=== PATIENT | male | born 1990 ===

== ENCOUNTER → 2020-07-30 12:50 | Outpatient (BNVA) | payer OTHER, SELFPAY | PROVIDERS: PCP Physician Assistant; Referring Provider Physician Assistant; Visit Provider Physician Assistant | DX: K21.9 Gastro-esophageal reflux disease without esophagitis (principal); Z79.899 Other long term (current) drug therapy | CPT/HCPCS: 99203 ==

== ENCOUNTER 2020-09-11 15:19 | Emergency (ER) | payer OTHER, SELFPAY ==
--- NOTE | 2020-09-11 | XR_ITS ---
EXAMINATION: XR ANKLE, LEFT CLINICAL INFORMATION: Pain after trauma. COMPARISON: None TECHNIQUE: AP, lateral, and mortise views of the left ankle. FINDINGS: 3 views of left ankle reveal bimalleolar soft tissue swelling. No visible acute fracture, dislocation or subluxation seen. The ankle mortise and subtalar joints are normal. XR/XR ankle LT min 3V IMPRESSION: Unremarkable left ankle exam.
--- NOTE | 2020-09-11 16:56 | ED_ITS ---
HPI - Extremity Injury (Lower) General Chief Complaint: Extremity Injury, Lower <BIENVENIDO Bhagat Last Filed: 09/11/20 17:39> Stated Complaint: ankle pain' <BIENVENIDO Bhagat Last Filed: 09/11/20 17:39> Time Seen by Provider: 09/11/20 16:45 <BIENVENIDO Bhagat Last Filed: 09/11/20 17:39> Source: patient <BIENVENIDO Bhagat Last Filed: 09/11/20 17:39> Mode of arrival: ambulatory <BIENVENIDO Bhagat Last Filed: 09/11/20 17:39> Limitations: no limitations <BIENVENIDO Bhagat Last Filed: 09/11/20 17:39> History of Present Illness HPI Narrative: patient presents to ED for left ankle pain. Patient states yesterday he was jumping off a trampoline heard a pop in his ankle and since then has been swollen. Patient states able to bear weight and walk on ankle. Patient denies falling to the floor, hitting head, or loss of consciousness. <BIENVENIDO Bhagat Last Filed: 09/11/20 17:39> Related Data Home Medications: Home Medications Medication Instructions Recorded Confirmed hydroxyzine HCl 50 mg tablet [id number] mg PO BEDTIME PRN 09/23/20 Previous Rx's Medication Instructions Recorded cyclobenzaprine 10 mg tablet 10 mg PO BEDTIME 30 Days #30 tab 07/17/20 cyclobenzaprine 10 mg PO TID PRN #15 tab 09/11/20 naproxen 500 mg PO BID PRN #20 tab 09/11/20 <BIENVENIDO Bhagat Last Filed: 09/11/20 17:39> Allergies/Adverse Reactions: Allergies Allergy/AdvReac Type Severity Reaction Status Date / Time Penicillins [PENICILLINS] Allergy Severe DIFFICULTY Verified 07/30/20 13:52 BREATHING penicillin V Allergy Unknown throat Verified 07/17/20 14:59 swlelling, anaphylaxis From Augmentin Allergy Unknown UNKNOWN Uncoded 06/27/20 16:47 <BIENVENIDO Bhaagt Last Filed: 09/11/20 17:39> Review of Systems Review of Systems: Yes all other systems are reviewed and are negative <BIENVENIDO Bhagat Last Filed: 09/11/20 17:39> Constitutional: Constitutional: Reports as per HPI and Reports no additional constitutional complaints <BIENVENIDO Bhagat Last Filed: 09/11/20 17:39> Eyes: Eyes: Reports as per HPI and Reports no additional eye complaints <BIENVENIDO Bhagat - Last Filed: 09/11/20 17:39> ENT: Reports system reviewed and no additional complaints, except as documented and Reports as per HPI <BIENVENIDO Bhagat - Last Filed: 09/11/20 17:39> Cardiovascular: Cardiovascular: Reports as per HPI and Reports no additional cardiovascular complaints <BIENVENIDO Bhagat Last Filed: 09/11/20 17:39> Respiratory: Respiratory: Reports as per HPI and Reports no additional respiratory complaints <BIENVENIDO Bhagat Last Filed: 09/11/20 17:39> Gastrointestinal: Gastrointestinal: Reports as per HPI and Reports no additional gastrointestinal complaints <BIENVENIDO Bhagat Last Filed: 09/11/20 17:39> Genitourinary: Genitourinary: Reports no additional male genitourinary complaints and Reports as per HPI <BIENVENIDO Bhagat Last Filed: 09/11/20 17:39> Musculoskeletal: Musculoskeletal: Reports no additional musculoskeletal complaints, Reports as per HPI and Reports arthralgias ( left ankle) <BIENVENIDO Bhagat Last Filed: 09/11/20 17:39> Neurologic: Reports system reviewed and no additional complaints, except as documented and Reports as per HPI <BIENVENIDO Bhagat Last Filed: 09/11/20 17:39> Psychiatric: Psychiatric: Reports no additional psychiatric complaints and Reports as per HPI <BIENVENIDO Bhagat Last Filed: 09/11/20 17:39> PMF Past Medical History Medical History: Medical History (Updated 09/23/20 @ 19:15 by Maria Elena Willams NP) Blurred vision Family history of diabetes mellitus <BIENVENIDO Bhagat Last Filed: 09/11/20 17:39> Surgical History: Surgical History Rupture of right patellar tendon <BIENVENIDO Bhagat - Last Filed: 09/11/20 17:39> Family History Family History: Family History Father Hx of diabetes mellitus History of high blood pressure Mother No problems noted. Mother No problems noted. <BIENVENIDO Bhagat - Last Filed: 09/11/20 17:39> Social History Social History: Social History Alcohol intake: never Smoking Status: Never smoker Substance Use Type: Crack/Cocaine <BIENVENIDO Bhagat - Last Filed: 09/11/20 17:39> Physical Exam Vital Signs: Vital Signs: Last Vital Signs Temp 99.1 F 09/11/20 17:01 Pulse 92 09/11/20 17:01 Resp 16 09/11/20 17:01 BP 117/71 09/11/20 17:01 Pulse Ox 97 09/11/20 17:01 Body Mass Index 28.7 <BIENVENIDO Bhagat - Last Filed: 09/11/20 17:39> Vital Signs: Last Vital Signs Temp 99.1 F 09/11/20 17:01 Pulse 92 09/11/20 17:01 Resp 16 09/11/20 17:01 BP 117/71 09/11/20 17:01 Pulse Ox 97 09/11/20 17:01 Body Mass Index 28.7 <Freddie Mendoza MD - Last Filed: 10/04/20 08:17> Const: General: cooperative, healthy appearing, comfortable, no acute distress, well developed, alert, awake and Physically active <BIENVENIDO Bhagat - Last Filed: 09/11/20 17:39> Orientation/consciousness: oriented to person, oriented to place, oriented to time and patient oriented x3 <BIENVENIDO Bhagat - Last Filed: 09/11/20 17:39> HENMT: Head: Yes normal to inspection, Yes No palpable skull fracture present and Yes atraumatic <BIENVENIDO Bhagat - Last Filed: 09/11/20 17:39> Eyes: General: appearance normal, both eyes and all related structures <BIENVENIDO Bhagat - Last Filed: 09/11/20 17:39> Neck: Neck: Yes normal visual inspection, Yes full ROM, Yes no lymphadenopathy, Yes supple and No tender <BIENVENIDO Bhagat Last Filed: 09/11/20 17:39> Chest: Chest palpation & inspection: normal inspection of the chest, normal palpation of entire chest wall and no localized rib tenderness <BIENVENIDO Bhagat Last Filed: 09/11/20 17:39> Resp: Effort & Inspection: normal respiratory effort and able to speak in complete sentences <BIENVENIDO Bhagat Last Filed: 09/11/20 17:39> Auscultation: clear to auscultation bilaterally <BIENVENIDO Bhagat Last Filed: 09/11/20 17:39> Cardio: Jugular venous distension: no JVD <BIENVENIDO Bhagat Filed: 09/11/20 17:39> Heart sounds: S1 normal heart sound present and S2 normal heart sound present <BIENVENIDO Bhagat Filed: 09/11/20 17:39> GI: Inspection: Yes normal to inspection and Yes abdominal wall ecchymosis <BIENVENIDO Bhagat Last Filed: 09/11/20 17:39> Palpation (GI): Soft to palpation, not firm, nontender, no guarding and not rigid <BIENVENIDO Bhagat Last Filed: 09/11/20 17:39> : General: No CVA tenderness and Yes no CVA tenderness <BIENVENIDO Bhagat Filed: 09/11/20 17:39> Back/Spine/Pelvis: Back: no CVA tenderness, No CVA tenderness and No back tenderness <BIENVENIDO Bhagat Last Filed: 09/11/20 17:39> Skin: General skin exam: no rashes or lesions noted <BIENVENIDO Bhagat Last Filed: 09/11/20 17:39> Neuro: General: oriented to person, oriented to place, oriented to time, patient oriented x3 and CN's II-XI intact bilaterally <BIENVENIDO Bhagat Filed: 09/11/20 17:39> Extrem: Other: left lower extremity positive for swelling at the ankle with tenderness on the lateral and medial malleolus area. Negative for any left foot tenderness. Vascular exam of lower extremity and neuro exam intact. <BIENVENIDO Bhagat - Last Filed: 09/11/20 17:39> Psych: Appearance: grossly normal, well kempt and not disheveled <BIENVENIDO Bhagat - Last Filed: 09/11/20 17:39> Course Course Course Narrative: Patient will have x-ray to rule out any fracture of lower extremity. Patient walking on extremity without any problem. <BIENVENIDO Bhagat - Last Filed: 09/11/20 17:39> I have reviewed the chart <Freddie Mendoza MD - Last Filed: 10/04/20 08:17> Reevaluation(s) Reevaluation #1: Extremity x-ray negative for any fractures. Patient has Nathan wrap placed will be discharged with pain meds and muscle relaxers. <BIENVENIDO Bhagat - Last Filed: 09/11/20 17:39> Time: 17:08 <BIENVENIDO Bhagat - Last Filed: 09/11/20 17:39> MDM - Extremity Injury (Lower) MDM Narrative Medical decision making narrative: ankle sprain <BIENVENIDO Bhagat - Last Filed: 09/11/20 17:39> Discharge Plan Discharge Clinical Impression: Ankle sprain <BIENVENIDO Bhagat - Last Filed: 09/11/20 17:39> Patient Disposition: Home, Self-Care <BIENVENIDO Bhagat - Last Filed: 09/11/20 17:39> Instructions: Ankle Sprain (ED) <BIENVENIDO Bhagat - Last Filed: 09/11/20 17:39> Additional Instructions: Return to the ED for any worsening swelling, increased pain, numbness/tingling, calf pain, chest pain, fever, chills, any other concerning symptoms. Please follow-up with your PCP. <BIENVENIDO Bhagat - Last Filed: 09/11/20 17:39> Prescriptions: New naproxen 500 mg tablet 500 mg PO BID PRN (Reason: pain) Qty: 20 RF: 0 cyclobenzaprine 10 mg tablet 10 mg PO TID PRN (Reason: sprain) Qty: 15 RF: 0 No Action flu vacc [id number] 6mos up(PF) 60 mcg (15 mcg x 4)/0.5 mL syringe 0.5 ml IM ONCE Qty: 0.5 RF: 0 cyclobenzaprine 10 mg tablet 10 mg PO BEDTIME 30 Days Qty: 30 RF: 1 <BIENVENIDO Bhagat - Last Filed: 09/11/20 17:39> Referrals: Chele Aquino PA-C [Primary Care Provider] - 2 days ( left ankle sprain) <BIENVENIDO Bhagat - Last Filed: 09/11/20 17:39> Stand Alone Forms: Work/School Release <BIENVENIDO Bhagat - Last Filed: 09/11/20 17:39> Interventions: ED Discharge Assessment Last Done: 09/11/20 17:27 <BIENVENIDO Bhagat - Last Filed: 09/11/20 17:39> Discharge Date/Time: 09/11/20 17:28 <BIENVENIDO Bhagat - Last Filed: 09/11/20 17:39> Print Language: Latvian <BIENVENIDO Bhagat - Last Filed: 09/11/20 17:39>
[2020-09-11 17:01] VITALS: BP 117/71; PULSE 92; RESP 16; TEMP 37.3; O2SAT 97; BMI 28.7
== END 2020-09-11 17:28 | disposition home or self-care (01) ==
PROVIDERS: Emergency Provider Emergency Medicine; PCP Physician Assistant
DX: S93.402A Sprain of unspecified ligament of left ankle, initial encounter (principal); M25.572 Pain in left ankle and joints of left foot; Y93.44 Activity, trampolining; Y92.9 Unspecified place or not applicable; Y99.9 Unspecified external cause status; Z79.899 Other long term (current) drug therapy
CPT/HCPCS: 73610; 99283; 99284

== ENCOUNTER → 2020-10-22 12:51 | Outpatient (BNVA) | payer OTHER, SELFPAY | PROVIDERS: PCP Physician Assistant; Visit Provider Physician Assistant | DX: Z76.89 Persons encountering health services in other specified circumstances (principal) ==

== ENCOUNTER → 2020-10-23 11:03 | Outpatient (BNVA) | payer OTHER, SELFPAY | PROVIDERS: PCP Physician Assistant; Visit Provider Physician Assistant | DX: Z76.89 Persons encountering health services in other specified circumstances (principal) ==

== ENCOUNTER 2020-12-25 11:59 | Outpatient (REF) | payer OTHER, SELFPAY ==
[2020-12-25 14:12] LABS: Hematocrit 44.9 % (42-52); Hemoglobin 14.2 g/dl (14.0-18.0); Mean Corpuscular HGB Conc 31.6 g/dl (31.0-36.0); Mean Corpuscular Hemoglobin 30.6 pg (27.0-33.0); Mean Corpuscular Volume 96.8 fL (80-98); Platelet Count 235 X10*3/uL (160-400); Red Blood Count 4.64 X10*6/uL (4.60-5.80); Red Cell Distribution Width 11.9 % (11.0-16.0); White Blood Count 6.3 X10*3/uL (4.8-10.8)
[2020-12-25 14:26] LABS: Estimated Average Glucose 80 mg/dL; Hemoglobin A1c % 4.4 %
[2020-12-25 14:37] LABS: Alanine Aminotransferase 12 U/L (0-40); Albumin Level 4.3 g/dL (3.5-5.0); Alkaline Phosphatase 72 U/L (39-117); Anion Gap 9 (12-20); Aspartate Amino Transferase 13 U/L (5-37); Bilirubin Total 0.9 mg/dL (0.0-1.0); Blood Urea Nitrogen 9 mg/dL (9-16); Calcium 8.7 mg/dL (8.4-10.2); Carbon Dioxide 28 mmol/L (22-29); Chloride 106 mmol/L (96-108); Estimated Glomerular Filt Rate > 60; Glucose Fasting 100 mg/dL (60-99); Potassium 4.2 mmol/L (3.3-5.1); Sodium 139 mmol/L (135-145); Total Protein 7.3 g/dL (6.5-8.0)
[2020-12-25 15:11] LABS: Syphilis Screen Reactive (Nonreactive)
[2020-12-26 09:01] LABS: HBsAGNum1 0.16 S/CO (0.00-0.99); HIV AB/AG Nonreactive (Nonreactive); HIV Num 1 0.08 S/CO (0.00-0.99); Hepatitis B Surface Antigen Negative (Negative)
[2020-12-26 09:46] LABS: HBS Num1 > 1000.00 mIU/mL (0-7.99); HBc Num1 0.05 S/CO (0.00-0.79); Hepatitis B Core Antibody Nonreactive (Nonreactive); ~HepC Num1 0.16 S/CO (0.00-0.79); ~Hepatitis B Surface Antibody REACTIVE (Nonreactive); ~Hepatitis C Antibody Nonreactive (Nonreactive)
[2021-01-02 18:37] LABS: Chlamydia Pneumoniae IgA <1:16 titer (<1:16); Chlamydia Pneumoniae IgG <1:64 titer (<1:64); Chlamydia Pneumoniae IgM <1:10 titer (<1:10); Chlamydia Psittaci IgA <1:16 titer (<1:16); Chlamydia Psittaci IgG <1:64 titer (<1:64); Chlamydia Psittaci IgM <1:10 titer (<1:10); Chlamydia Trachomatis IgA <1:16 titer (<1:16); Chlamydia Trachomatis IgG <1:64 titer (<1:64); Chlamydia Trachomatis IgM <1:10 titer (<1:10)
== END 2020-12-25 12:00 | disposition home or self-care (01) ==
LOC: HO.10HDL 11:59
PROVIDERS: Visit Provider Physician Assistant
DX: I10 Essential (primary) hypertension (principal); Z11.3 Encounter for screening for infections with a predominantly sexual mode of transmission; Z13.1 Encounter for screening for diabetes mellitus; Z13.29 Encounter for screening for other suspected endocrine disorder
CPT/HCPCS: 36415; 80053; 83036; 84443; 85027; 86631; 86632; 86704; 86706; 86780; 86803; 87340; 87389

== ENCOUNTER 2021-06-13 22:10 | Emergency (ER) | payer OTHER, SELFPAY ==
--- NOTE | 2021-06-13 22:52 | PC.NURSE ---
PT CALLED, NOT PRESENT IN WR.
--- NOTE | 2021-06-13 23:03 | PC.NURSE ---
PT NOT IN WAITING ROOM.
== END 2021-06-13 23:59 | disposition left against medical advice (07) ==
PROVIDERS: Emergency Provider Emergency Medicine; PCP Physician Assistant
DX: Z20.822 Contact with and (suspected) exposure to COVID-19 (principal)

== ENCOUNTER 2021-06-29 12:08 | Emergency (ER) | payer OTHER, SELFPAY ==
[2021-06-29 12:23] VITALS: BP 123/91; PULSE 74; RESP 16; TEMP 36.1; O2SAT 98; BMI 25.5
[2021-06-29 12:46] LABS: MANUAL DIFF FLAG NO
[2021-06-29 12:47] LABS: Basophils Percent Auto 0.5 % (0-2); Eosinophils Absolute Auto 0.3 X10*3/uL (0.0-0.4); Hematocrit 46.5 % (42-52); Hemoglobin 15.2 g/dl (14.0-18.0); Imm Gran Abs Auto 0.04 X10*3/uL (0.00-0.03); Imm Gran Pct Auto 0.5 % (0.0-0.4); Lymphocytes Absolute Auto 1.7 X10*3/uL (1.2-4.9); Mean Corpuscular HGB Conc 32.7 g/dl (31.0-36.0); Mean Corpuscular Hemoglobin 31.8 pg (27.0-33.0); Mean Corpuscular Volume 97.3 fL (80-98); Mean Platelet Volume 9.6 fL (9.4-12.4); Monocytes Percent Auto 11.6 % (2-11); Neutrophils Absolute Auto 5.5 X10*3/uL (2.0-8.3); Neutrophils Percent Auto 63.4 % (45-73); Platelet Count 265 X10*3/uL (160-400); Red Blood Count 4.78 X10*6/uL (4.60-5.80); Red Cell Distribution Width 11.5 % (11.0-16.0); White Blood Count 8.6 X10*3/uL (4.8-10.8)
[2021-06-29 13:04] LABS: Alanine Aminotransferase 31 U/L (0-40); Albumin Level 4.2 g/dL (3.5-5.0); Alkaline Phosphatase 70 U/L (39-117); Anion Gap 10 (12-20); Aspartate Amino Transferase 44 U/L (5-37); Bilirubin Total 1.1 mg/dL (0.0-1.0); Blood Urea Nitrogen 11 mg/dL (9-16); COVID-19 Test Negative (Negative); Calcium 9.6 mg/dL (8.4-10.2); Carbon Dioxide 27 mmol/L (22-29); Chloride 104 mmol/L (96-108); Creatinine Clr Calc Pharmacy 135.5; Estimated Glomerular Filt Rate > 60; Glucose Random 103 mg/dL (60-115); Potassium 4.4 mmol/L (3.3-5.1); Sodium 137 mmol/L (135-145); Total Protein 7.3 g/dL (6.5-8.0)
== END 2021-06-29 16:30 | disposition left against medical advice (07) ==
PROVIDERS: Emergency Provider Emergency Medicine; PCP Physician Assistant
DX: R10.31 Right lower quadrant pain (principal); Z20.822 Contact with and (suspected) exposure to COVID-19
CPT/HCPCS: 36415; 80053; 85025; 87635; 99282; 99283

== ENCOUNTER 2021-09-17 10:40 | Outpatient (REF) | payer OTHER, SELFPAY ==
[2021-09-17 11:07] LABS: MANUAL DIFF FLAG NO
[2021-09-17 11:35] LABS: Basophils Percent Auto 0.4 % (0-2); Eosinophils Absolute Auto 0.1 X10*3/uL (0.0-0.4); Eosinophils Percent Auto 1.6 % (0-4); Hematocrit 45.6 % (42.0-52.0); Hemoglobin 14.7 g/dl (14.0-18.0); Imm Gran Abs Auto 0.04 X10*3/uL (0.00-0.03); Imm Gran Pct Auto 0.6 % (0.0-0.4); Lymphocytes Absolute Auto 1.1 X10*3/uL (1.2-4.9); Lymphocytes Percent Auto 15.2 % (20-40); Mean Corpuscular HGB Conc 32.2 g/dl (31.0-36.0); Mean Corpuscular Hemoglobin 31.2 pg (27.0-33.0); Mean Corpuscular Volume 96.8 fL (80.0-98.0); Mean Platelet Volume 10.6 fL (9.4-12.4); Monocytes Absolute Auto 0.8 X10*3/uL (0.1-1.2); Monocytes Percent Auto 10.8 % (2-11); Neutrophils Percent Auto 71.4 % (45-73); Platelet Count 223 X10*3/uL (160-400); Red Blood Count 4.71 X10*6/uL (4.60-5.80); Red Cell Distribution Width 11.6 % (11.0-16.0)
[2021-09-17 11:38] LABS: Estimated Average Glucose 82 mg/dL; Hemoglobin A1c % 4.5 %
[2021-09-17 12:12] LABS: Alanine Aminotransferase 25 U/L (0-40); Albumin Level 4.4 g/dL (3.5-5.0); Alkaline Phosphatase 76 U/L (39-117); Anion Gap 11 (12-20); Aspartate Amino Transferase 18 U/L (5-37); Bilirubin Direct 0.4 mg/dL (0.0-0.5); Bilirubin Total 0.6 mg/dL (0.0-1.0); Blood Urea Nitrogen 11 mg/dL (9-16); Calcium 9.4 mg/dL (8.4-10.2); Carbon Dioxide 27 mmol/L (22-29); Chloride 105 mmol/L (96-108); Estimated Glomerular Filt Rate > 60; Glucose Random 93 mg/dL (60-115); Potassium 4.1 mmol/L (3.3-5.1); Sodium 139 mmol/L (135-145); Total Protein 7.6 g/dL (6.5-8.0)
[2021-09-17 12:31] LABS: Syphilis Screen Reactive (Nonreactive)
[2021-09-17 12:43] LABS: Appearance Urine CLEAR; Color Urine YELLOW; Glucose Urine UA NEG (NEG); Leukocyte Esterase Urine NEG (NEG); Nitrite Urine NEG (NEG); Urine Blood NEG (NEG); Urine Ketones NEG (NEG); Urine Protein NEG (NEG-TRACE)
[2021-09-18 04:53] LABS: HIV AB/AG Nonreactive (Nonreactive); HIV Num 1 0.09 S/CO (0.00-0.99)
[2021-09-20 17:41] LABS: Chlamydia Pneumoniae IgA <1:16 titer (<1:16); Chlamydia Pneumoniae IgG <1:64 titer (<1:64); Chlamydia Pneumoniae IgM <1:10 titer (<1:10); Chlamydia Psittaci IgA <1:16 titer (<1:16); Chlamydia Psittaci IgG <1:64 titer (<1:64); Chlamydia Psittaci IgM <1:10 titer (<1:10); Chlamydia Trachomatis IgA <1:16 titer (<1:16); Chlamydia Trachomatis IgG <1:64 titer (<1:64); Chlamydia Trachomatis IgM <1:10 titer (<1:10)
[2021-09-24 15:31] LABS: RPR Quantitative Non-Reactive (Nonreactive); T.Pallidum Particle Agg Test Reactive (Nonreactive)
== END 2021-09-17 10:41 | disposition home or self-care (01) ==
LOC: HO.LAB 10:40
PROVIDERS: Nurse Practitioner Family; PCP Physician Assistant; Visit Provider Physician Assistant
DX: Z11.3 Encounter for screening for infections with a predominantly sexual mode of transmission (principal); Z11.4 Encounter for screening for human immunodeficiency virus [HIV]; Z13.0 Encounter for screening for diseases of the blood and blood-forming organs and certain disorders involving the immune mechanism; F33.1 Major depressive disorder, recurrent, moderate; R30.0 Dysuria; Z83.3 Family history of diabetes mellitus
CPT/HCPCS: 36415; 80048; 80076; 81003; 83036; 85025; 86592; 86631; 86632; 86780; 87389

== ENCOUNTER 2021-09-24 12:53 | Outpatient (REF) | payer OTHER, SELFPAY | END 2021-09-24 12:54 | disposition home or self-care (01) | LOC: HO.US 12:53 | PROVIDERS: Visit Provider Physician Assistant | DX: Z13.89 Encounter for screening for other disorder (principal) ==

== ENCOUNTER 2021-11-25 12:41 | Outpatient (REF) | payer OTHER, SELFPAY ==
[2021-11-25 13:57] LABS: Hemoglobin 14.3 g/dl (14.0-18.0); Mean Corpuscular HGB Conc 31.8 g/dl (31.0-36.0); Mean Corpuscular Volume 97.4 fL (80.0-98.0); Mean Platelet Volume 10.5 fL (9.4-12.4); Platelet Count 243 X10*3/uL (160-400); Red Blood Count 4.62 X10*6/uL (4.60-5.80); Red Cell Distribution Width 11.8 % (11.0-16.0)
[2021-11-25 14:43] LABS: Alanine Aminotransferase 20 U/L (0-40); Albumin Level 4.1 g/dL (3.5-5.0); Alkaline Phosphatase 76 U/L (39-117); Anion Gap 9 (12-20); Aspartate Amino Transferase 17 U/L (5-37); Bilirubin Direct 0.3 mg/dL (0.0-0.5); Bilirubin Total 0.6 mg/dL (0.0-1.0); Blood Urea Nitrogen 12 mg/dL (9-16); Calcium 9.2 mg/dL (8.4-10.2); Carbon Dioxide 27 mmol/L (22-29); Chloride 108 mmol/L (96-108); Estimated Glomerular Filt Rate > 60; Glucose Random 94 mg/dL (60-115); Lipase 27 U/L (8-78); Potassium 4.6 mmol/L (3.3-5.1); Sodium 139 mmol/L (135-145); Total Protein 7.2 g/dL (6.5-8.0)
== END 2021-11-25 12:42 | disposition home or self-care (01) ==
LOC: HO.10HDL 12:41
PROVIDERS: Visit Provider Physician Assistant
DX: R10.31 Right lower quadrant pain (principal)
CPT/HCPCS: 36415; 80048; 80076; 83690; 85027

== ENCOUNTER 2022-01-01 10:42 | Outpatient (REF) | payer OTHER, SELFPAY ==
--- NOTE | ~2022-01-01 | US_ITS ---
EXAMINATION: US ABDOMEN COMPLETE CLINICAL INFORMATION: Right lower quadrant pain, vomiting. Right upper quadrant pain. COMPARISON: None TECHNIQUE: Real-time imaging of the abdominal viscera. FINDINGS: PANCREAS: Partially delineated. No free fluid in the area. ABDOMINAL AORTA: The proximal, mid, and distal segments are normal in caliber. INFERIOR VENA CAVA: Visualized portions are normal. LIVER: Normal. The liver is normal in size. The liver contour is normal. Parenchymal echogenicity is normal. No focal hepatic lesion. There is no intrahepatic biliary duct dilatation seen. GALLBLADDER: Normal. The gallbladder is physiologically distended without evidence of stones, sludge, polyps, wall thickening or pericholecystic fluid. COMMON BILE DUCT: Normal in caliber measuring 0.4 cm in diameter. RIGHT KIDNEY: Normal. No hydronephrosis. No renal calculi or focal parenchymal lesions. The kidney measures 10.9 cm in maximum dimension. LEFT KIDNEY: Normal. No hydronephrosis. No renal calculi or focal parenchymal lesions. The kidney measures 10.3 cm in maximum dimension. SPLEEN: Normal. The spleen measures 10.0 cm in maximum dimension. FREE FLUID: None. US/US abdomen complete IMPRESSION: No suspicious finding here. No evidence of cholelithiasis. No cholecystitis. No free fluid is seen.
== END 2022-01-01 10:43 | disposition home or self-care (01) ==
LOC: HO.HMGCX 10:42
PROVIDERS: PCP Physician Assistant; Visit Provider Physician Assistant
DX: R10.31 Right lower quadrant pain (principal)
CPT/HCPCS: 76700

== ENCOUNTER 2023-01-05 11:37 | Outpatient (REF) | payer OTHER, SELFPAY ==
[2023-01-05 13:30] LABS: Hematocrit 47.3 % (42.0-52.0); Hemoglobin 15.1 g/dl (14.0-18.0); Mean Corpuscular HGB Conc 31.9 g/dl (31.0-36.0); Mean Corpuscular Hemoglobin 30.6 pg (27.0-33.0); Mean Corpuscular Volume 95.7 fL (80.0-98.0); Mean Platelet Volume 10.9 fL (9.4-12.4); Platelet Count 224 X10*3/uL (160-400); Red Blood Count 4.94 X10*6/uL (4.60-5.80); Red Cell Distribution Width 11.5 % (11.0-16.0); White Blood Count 5.6 X10*3/uL (4.8-10.8)
[2023-01-05 15:03] LABS: CT PCR NOT DETECTED (Not Detect.); NG PCR NOT DETECTED (Not Detect.)
[2023-01-05 16:16] LABS: Alanine Aminotransferase 19 U/L (0-40); Albumin Level 4.1 g/dL (3.5-5.0); Alkaline Phosphatase 80 U/L (39-117); Anion Gap 9 (12-20); Aspartate Amino Transferase 19 U/L (5-37); Bilirubin Total 0.9 mg/dL (0.0-1.0); Blood Urea Nitrogen 10 mg/dL (9-16); Carbon Dioxide 29 mmol/L (22-29); Chloride 105 mmol/L (96-108); Estimated Glomerular Filt Rate > 60; Glucose Fasting 86 mg/dL (60-99); Potassium 4.4 mmol/L (3.3-5.1); Sodium 139 mmol/L (135-145); Total Protein 7.1 g/dL (6.5-8.0)
[2023-01-05 16:34] LABS: TSH reflex Free T4 0.89 uIU/mL (0.32-4.0)
[2023-01-06 04:18] LABS: HIV AB/AG Nonreactive (Nonreactive); HIV Num 1 0.06 S/CO (0.00-0.99)
[2023-01-06 04:24] LABS: Syphilis Screen Reactive (Nonreactive)
[2023-01-12 12:29] LABS: RPR Quantitative Non-Reactive (Nonreactive)
[2023-01-12 12:30] LABS: T.Pallidum Particle Agg Test Reactive (Nonreactive)
== END 2023-01-05 11:38 | disposition home or self-care (01) ==
LOC: HO.10HDL 11:37
PROVIDERS: Visit Provider Physician Assistant
DX: Z13.29 Encounter for screening for other suspected endocrine disorder (principal); Z11.3 Encounter for screening for infections with a predominantly sexual mode of transmission; Z20.2 Contact with and (suspected) exposure to infections with a predominantly sexual mode of transmission; Z13.1 Encounter for screening for diabetes mellitus
CPT/HCPCS: 0353U; 36415; 80053; 84443; 85027; 86592; 86780; 87389

== ENCOUNTER 2023-02-24 07:12 | Outpatient (REF) | payer OTHER, SELFPAY ==
--- NOTE | ~2023-02-24 | MR_ITS ---
EXAMINATION: MR BRAIN WITHOUT CONTRAST CLINICAL INFORMATION: Postconcussion syndrome. Headaches and memory loss. Difficulty concentrating. COMPARISON: None. TECHNIQUE: Multiplanar, multisequence imaging of the brain was performed without contrast. Slightly limited study due to artifacts from dental braces. FINDINGS: The diffusion and gradient refocused acquisitions are particularly limited due to dental braces artifacts. The imaged portions of the brain otherwise appear normal on these sequences. The ventricles are normal in size. No mass effect or midline shift is seen. No brain parenchymal signal abnormality is noted. No extra-axial fluid collections are seen. The brainstem and cerebellum are normal. The craniovertebral junction, marrow signal, and midline structures are normal. The major intracranial flow voids at the level of the ute of [place] are preserved. The dural venous sinus flow voids are maintained. The mastoid air cells and imaged portions of the paranasal sinuses are well aerated. MR/MR head/brain wo con IMPRESSION: Normal slightly limited MRI of the brain with dental braces artifacts.
== END 2023-02-24 07:13 | disposition home or self-care (01) ==
LOC: HO.MRI 07:12
PROVIDERS: PCP Physician Assistant; Visit Provider Physician Assistant
DX: F07.81 Postconcussional syndrome (principal)
CPT/HCPCS: 70551

== ENCOUNTER 2023-03-12 15:42 | Emergency (ER) | payer OTHER, SELFPAY ==
--- NOTE | ~2023-03-12 | CT_ITS ---
EXAMINATION: CT ABDOMEN AND PELVIS WITH CONTRAST CLINICAL INFORMATION: Severe intermittent right abdominal pain for a month COMPARISON: None available. TECHNIQUE: Multidetector volumetric images were obtained from the superior aspect of the liver through the pubic symphysis following administration 85 mL of Omnipaque 350 intravenous contrast. Sagittal and coronal reformatted images were obtained on the technologist's workstation. Oral contrast: No This CT examination was performed using dose optimization techniques as appropriate, variously including the following: *Automated exposure control *Adjustment of mA and/or kV according to patient size (this includes techniques or standardized protocols for targeted exams where dose is matched to indication/reason for exam; i.e. extremities or head) *Use of iterative reconstruction technique DLP: 462 mGy-cm FINDINGS: LUNG BASES: The visualized lung bases are unremarkable. LIVER, GALLBLADDER, AND BILIARY TREE: The liver is normal in size, shape, and attenuation. No focal hepatic lesion or biliary ductal dilatation is present. The gallbladder is unremarkable with no evidence of radiopaque gallstones, gallbladder wall thickening, or obvious pericholecystic inflammatory changes. PANCREAS: Small focal area of low attenuation in the region of the head of the pancreas of uncertain etiology. This may be partial visualization of the common duct. Measures 5 mm. SPLEEN: Unremarkable. ADRENAL GLANDS: Unremarkable. KIDNEYS AND URETERS: The kidneys are normal in size, shape, and attenuation. No hydronephrosis, hydroureter, or calculi seen. No perinephric stranding. BLADDER: Mildly thick-walled bladder. Decompressed. GASTROINTESTINAL TRACT: Nonobstructing bowel pattern. The appendix is within normal limits. No free fluid. ABDOMINAL WALL: No significant hernia is appreciated. LYMPH NODES: Normal. VASCULAR: Unremarkable. PELVIC VISCERA: Unremarkable. OSSEOUS STRUCTURES: Unremarkable. CT/CT abdomen pelvis w IV con IMPRESSION: No acute finding is felt to be present. Small area of low attenuation in the region of the head of the pancreas could be focal visualization of the duct versus a small area of hypodensity of uncertain significance. Consider ultrasound to further evaluate. This may be done an outpatient basis. The bowel pattern is nonobstructing. There is no free fluid. Fleischner guidelines were followed.
[2023-03-12 15:47] VITALS: BP 141/66; PULSE 84; RESP 18; TEMP 36.9; O2SAT 99; BMI 24.4
--- NOTE | 2023-03-12 15:48 | ED.GENADULT ---
HPI - General Adult General Chief complaint: Abdominal Pain Stated complaint: pcp sent over to check appendix out, pain. Time Seen by Provider: 03/12/23 20:58 Source: patient Mode of arrival: ambulatory Limitations: no limitations History of Present Illness complaint: Abdominal pain Onset (ago): week(s) (4) Location: abdomen (Right-sided) Radiation: back Severity: severe Severity scale (1-10): 8 Quality: sharp Pain Consistency: constant Relieving factors: none Exacerbating factors: immobilization Associated symptoms: nausea/vomiting Treatments prior to arrival: none Related Data Previous Rx's Medication Instructions Recorded diclofenac sodium 50 mg 50 mg PO BID inflammation/ pain 14 12/29/22 tablet,delayed release days #28 tabs omeprazole 20 mg capsule,delayed 20 mg PO DAILY reflux 30 days #30 12/29/22 release caps cyclobenzaprine 10 mg tablet 10 mg PO BEDTIME muscle relaxor 14 01/14/23 days #14 tabs amitriptyline 10 mg tablet 10 mg PO BEDTIME Concussion 30 01/21/23 days #30 tabs cyclobenzaprine 10 mg tablet 10 mg PO TID PRN muscle spasm #10 03/12/23 tabs gabapentin 300 mg capsule 300 mg PO TID #30 caps 03/12/23 Allergies Allergy/AdvReac Type Severity Reaction Status Date / Time Penicillins [PENICILLINS] Allergy Severe DIFFICULTY Verified 03/05/23 08:23 BREATHING penicillin V Allergy Unknown throat Verified 03/05/23 08:23 swlelling, anaphylaxis From Augmentin Allergy Unknown UNKNOWN Uncoded 01/22/23 07:56 Review of Systems Review of Systems: CONSTITUTIONAL: Denies weight loss, fever and chills. HEENT: Denies changes in vision and hearing. RESPIRATORY: Denies SOB and cough. CV: Denies palpitations no CP. GI: Positive abdominal pain, nausea, vomiting and diarrhea. : Denies dysuria and urinary frequency. MSK: Denies myalgia and joint pain. SKIN: Denies rash and pruritus. NEUROLOGICAL: Denies headache and syncope. PSYCHIATRIC: Denies recent changes in mood. Denies anxiety and depression. All other ROS are negative unless in HPI PMFSH Past Medical History Medical History Blurred vision Diabetes Family history of diabetes mellitus Hypertension Neurological symptoms Surgical History Rupture of right patellar tendon Family History Family History Father Hx of diabetes mellitus History of high blood pressure Mother No problems noted. Mother No problems noted. Social History Social History Housing: House Alcohol intake: former Patient Tobacco Use Status: Former Tobacco user Tobacco use type: Cigarette e-Cigarette/Vaping Use: Never Used Second Hand Smoke Exposure: No Substance Use Type: Crack/Cocaine and Marijuana Advance Directives: No Advance Directives Information Provided: No service: No Current occupational status: unemployed Current occupation: [employer] - [employer] Current occupational exposures/hazards: No Cognitive needs: No Hearing needs: No Vision needs: Yes Physical Exam ED Vital Signs: Vital Signs - 24 hr 03/12/23 15:47 03/12/23 21:29 Temperature 98.4 F 98.1 F Pulse Rate 84 72 Respiratory Rate 18 18 Blood Pressure 141/66 H 137/78 Pulse Oximetry 99 97 Oxygen Delivery Method Room Air Room Air BMI result Body Mass Index 24.4 GEN: Well developed, no acute distress, alert, oriented HEENT: Normocephalic, atraumatic, normal external ears, nose appears normal, no oropharyngeal edema or exudates Eyes: Normal to appearance Neck: Supple, no lymphadenopathy Respiratory: Talks in complete sentences, no respiratory distress, clear to auscultation bilaterally Cardiovascular: Regular rate and rhythm, no murmurs rubs or gallops Abdomen: Soft, right-sided, nondistended, positive guarding, no rebound Back: Positive right CVA tenderness Extremities: No clubbing cyanosis or edema Neurologic: No focal neurologic deficits, cranial nerves 2-12 intact, strength is 5/5 bilaterally Skin: No rash Lymph: Cervical, retroauricular, occipital lymphadenopathy Course Course Course Narrative: RME performed by Ivonne Mauricio PA-C. Patient is a 33 year old assigned male at presenting to the emergency department with RLQ abdominal pain. Labs ordered. Patient placed back in the waiting room pending room availability and results. Reevaluation(s) Reevaluation #1: Discussed results with the patient. He will be discharged at this time. Will try gabapentin for possible neuropathic pain. Will prescribe cyclobenzaprine which is assisted with his pain relief as well in the past. He continued follow-up with physical therapy follow up with his primary care provider. He was aware of the pancreatic finding as well which can follow up with an outpatient ultrasound. Time: 23:36 Medications Administered Discontinued Medications Generic Name Dose Route Start Last Admin Trade Name Efren PRN Reason Stop Dose Admin Iohexol 100 ml 03/12/23 22:20 03/12/23 22:20 Iohexol 350 Mg/Ml 100 Ml Infus..Btl IV 03/12/23 22:21 85 ml ONCE ONE Administration Ketorolac Tromethamine 15 mg 03/12/23 21:48 03/12/23 22:49 Ketorolac Tromethamine 15 Mg/Ml Vial IVPUSH 03/12/23 21:49 15 mg ONCE ONE Administration Medical Decision Making Medical Decision Making [facility] Narrative: Throwing year old male presents with right-sided abdominal pain. The pain has been constant with intermittent components to appear his exam rib go-cart guarding and tenderness. There is no rebound. Neck Huizar's. Differential diagnosis includes a IBD, IBS, epiploic appendagitis, renal colic, ascending UTI. Patient will have routine laboratory analysis, urinalysis a CT scan of the abdomen and pelvis. Differential Diagnosis Differential Diagnoses: The differential diagnosis associated with the presentation includes (See above) Admission/Observation Consideration of admission/observation: Escalation of care including admission/observation considered Lab Data [facility] Lab Attestation statement: I reviewed the patient's lab results. 03/12/23 17:43 03/12/23 17:43 Labs: Lab Results 03/12/23 03/12/23 03/12/23 Range/Units 17:43 17:43 17:43 WBC 8.3 (4.8-10.8) X10*3/uL RBC 4.64 (4.60-5.80) X10*6/uL Hgb 14.5 (14.0-18.0) g/dl Hct 45.0 (42.0-52.0) % MCV 97.0 (80.0-98.0) fL MCH 31.3 (27.0-33.0) pg MCHC 32.2 (31.0-36.0) g/dl RDW 11.9 (11.0-16.0) % Plt Count 245 (160-400) X10*3/uL MPV 9.7 (9.4-12.4) fL Immature Gran % (Auto) 0.4 (0.0-0.4) % Neut % (Auto) 72.2 (45-73) % Lymph % (Auto) 15.6 L (20-40) % [place] % (Auto) 9.3 (2-11) % Eos % (Auto) 2.3 (0-4) % Baso % (Auto) 0.2 (0-2) % Lymph # (Auto) 1.3 (1.2-4.9) X10*3/uL [place] # (Auto) 0.8 (0.1-1.2) X10*3/uL Eos # (Auto) 0.2 (0.0-0.4) X10*3/uL Baso # (Auto) 0.0 (0.0-0.2) X10*3/uL Abs Immat Gran (auto) 0.03 (0.00-0.03) X10*3/uL Absolute Neuts (auto) 6.0 (2.0-8.3) x10*3/uL Absolute Nucleated RBC 0.000 (0.0-0.012) X10*3/uL Nucleated RBC % (auto) 0.0 (0.0-0.2) /100WBC Sodium 137 (135-145) mmol/L Potassium 3.9 (3.3-5.1) mmol/L Chloride 106 (96-108) mmol/L Carbon Dioxide 25 (22-29) mmol/L Anion Gap 10 L (12-20) BUN 10 (9-16) mg/dL Creatinine 0.89 (0.5-1.4) mg/dL Estim Creat Clear Calc 124.1 Estimated GFR > 60 Random Glucose 112 (60-115) mg/dL Calcium 8.8 (8.4-10.2) mg/dL Magnesium 2.2 (1.6-2.6) mg/dL Total Bilirubin 0.9 (0.0-1.0) mg/dL AST 15 (5-37) U/L ALT 14 (0-40) U/L Alkaline Phosphatase 67 (39-117) U/L Total Protein 7.2 (6.5-8.0) g/dL Albumin 4.0 (3.5-5.0) g/dL Urine Color Yellow Urine Appearance Turbid Urine pH 8.5 (5.0-9.0) Ur Specific [place] 1.025 (1.005-1.025) Urine Protein 30 (1+) H (Neg-Trace) mg/dL Urine Glucose (UA) Negative (Negative) mg/dL Urine Ketones Trace (Negative) mg/dL Urine Blood Negative (Negative) Urine Nitrite Negative (Negative) Ur Leukocyte Esterase Trace H (Negative) Urine RBC 3-5 H (0-2) /HPF Urine WBC 0-5 (0-5) /HPF Ur Squamous Epith Cells 0-2 (0-2) /HPF Urine Bacteria None Seen (None Seen) Hyaline Casts 0-2 (0-2) /LPF Independent Interpretation I performed an independent interpretation of an: CT Scan (Abdomen: No acute findings) Radiology Impression Discussion of test interpretation with radiology: I have reviewed the radiologist's reading. ( CT/CT abdomen pelvis w IV con IMPRESSION: No acute finding is felt to be present. Small area of low attenuation in the region of the head of the pancreas could be focal visualization of the duct versus a small area of hypodensity of uncertain significance. Consider ultrasound to) External Record Review External record reviewed: Prior outpatient radiology (MRI normal) Prescription Management I considered prescription management with: Pain Medication Discharge Plan Discharge Clinical Impression: Abdominal pain, Chronic back pain, Abnormal CT scan Patient Disposition: Home, Self-Care Instructions: Chronic Pain (ED), Abdominal Pain (ED), Chronic Back Pain (DC), Computed Tomography Scan (ED) Additional Instructions: In addition to the above instructions, there was an abnormality noted in the head of the pancreas under CT scan. The pancreas is a gland that has endocrine and exocrine functions. Is recommended they follow up as an outpatient with an ultrasound for further evaluation. This can be done by her primary care provider. Prescriptions: New gabapentin 300 mg capsule 300 mg PO TID Qty: 30 0RF cyclobenzaprine 10 mg tablet 10 mg PO TID PRN (Reason: muscle spasm) Qty: 10 0RF No Action cyclobenzaprine 10 mg tablet 10 mg PO BEDTIME 14 Days Qty: 14 1RF amitriptyline 10 mg tablet 10 mg PO BEDTIME 30 Days Qty: 30 3RF flu vacc [id number] 6mos up(PF) 60 mcg (15 mcg x 4)/0.5 mL syringe 0.5 ml IM ONCE Qty: 0.5 0RF diclofenac sodium 50 mg tablet,delayed release (DR/EC) 50 mg PO BID 14 Days Qty: 28 0RF omeprazole 20 mg capsule,delayed release(DR/EC) 20 mg PO DAILY 30 Days Qty: 30 3RF Referrals: Chele Aquino PA-C [Primary Care Provider] - 1 week
--- NOTE | 2023-03-12 17:45 | MHC.EDTECH ---
PT URINE SAMPLE COLLECTED ,BLOOD DRAWN AND SENT TO LAB .
[2023-03-12 17:48] LABS: MANUAL DIFF FLAG NO
[2023-03-12 17:50] LABS: Appearance Urine Turbid; Basophils Percent Auto 0.2 % (0-2); Color Urine Yellow; Eosinophils Absolute Auto 0.2 X10*3/uL (0.0-0.4); Eosinophils Percent Auto 2.3 % (0-4); Glucose Urine UA Negative (Negative); Hemoglobin 14.5 g/dl (14.0-18.0); Imm Gran Abs Auto 0.03 X10*3/uL (0.00-0.03); Imm Gran Pct Auto 0.4 % (0.0-0.4); Leukocyte Esterase Urine Trace (Negative); Lymphocytes Absolute Auto 1.3 X10*3/uL (1.2-4.9); Lymphocytes Percent Auto 15.6 % (20-40); Mean Corpuscular HGB Conc 32.2 g/dl (31.0-36.0); Mean Corpuscular Hemoglobin 31.3 pg (27.0-33.0); Mean Platelet Volume 9.7 fL (9.4-12.4); Monocytes Absolute Auto 0.8 X10*3/uL (0.1-1.2); Monocytes Percent Auto 9.3 % (2-11); Neutrophils Percent Auto 72.2 % (45-73); Nitrite Urine Negative (Negative); PH 8.5 (5.0-9.0); Platelet Count 245 X10*3/uL (160-400); Red Blood Count 4.64 X10*6/uL (4.60-5.80); Red Cell Distribution Width 11.9 % (11.0-16.0); Specific Gravity - Urine 1.025 (1.005-1.025); UMIC TRIGGER UACC YES; Urine Blood Negative (Negative); Urine Ketones Trace mg/dL (Negative); Urine Protein 30 (1+) mg/dL (Neg-Trace); White Blood Count 8.3 X10*3/uL (4.8-10.8)
[2023-03-12 17:57] LABS: Bacteria Urine None Seen (None Seen); Hyaline Casts Urine 0-2 /LPF (0-2); Squamous Epithelial Cell Urine 0-2 /HPF (0-2); WBC Urine 0-5 /HPF (0-5)
[2023-03-12 18:05] LABS: Alanine Aminotransferase 14 U/L (0-40); Alkaline Phosphatase 67 U/L (39-117); Anion Gap 10 (12-20); Aspartate Amino Transferase 15 U/L (5-37); Bilirubin Total 0.9 mg/dL (0.0-1.0); Blood Urea Nitrogen 10 mg/dL (9-16); Calcium 8.8 mg/dL (8.4-10.2); Carbon Dioxide 25 mmol/L (22-29); Chloride 106 mmol/L (96-108); Creatinine Clr Calc Pharmacy 124.1; Estimated Glomerular Filt Rate > 60; Glucose Random 112 mg/dL (60-115); Magnesium 2.2 mg/dL (1.6-2.6); Potassium 3.9 mmol/L (3.3-5.1); Sodium 137 mmol/L (135-145); Total Protein 7.2 g/dL (6.5-8.0)
[2023-03-12 21:29] VITALS: BP 137/78; PULSE 72; RESP 18; TEMP 36.7; O2SAT 97
[2023-03-12] MEDS: iohexoL 350 MG/ML 100 ML INFUS..BTL IV (22:20)
[2023-03-12] MEDS: Ketorolac Tromethamine 15 MG/ML VIAL IVPUSH (22:49)
[2023-03-12 23:51] VITALS: BP 130/86; PULSE 76; RESP 12; TEMP 37.1; O2SAT 97
== END 2023-03-12 23:52 | disposition home or self-care (01) ==
PROVIDERS: Physician Assistant Medical; Emergency Provider Emergency Medicine; PCP Physician Assistant
DX: R10.9 Unspecified abdominal pain (principal); E11.9 Type 2 diabetes mellitus without complications; I10 Essential (primary) hypertension; M54.50 Low back pain, unspecified; R93.5 Abnormal findings on diagnostic imaging of other abdominal regions, including retroperitoneum
CPT/HCPCS: 36415; 74177; 80053; 81001; 83735; 85025; 96374; 99284; J1885; Q9967

== ENCOUNTER 2023-08-04 13:25 | Outpatient (AMB) | payer OTHER, SELFPAY ==
--- NOTE | 2023-08-04 13:32 | MHC.PC.OV ---
Vital Signs 08/04/23 13:33 Height 5 ft 10 in Weight 175 lb 2 oz BMI 25.1 BP 132/78 Blood Pressure Location Lt brachial Position Sitting Pulse 54 Pulse Source Pulse Oximeter Pulse Oximetry (%) 98 Oxygen Delivery Method Room Air Intake Visit Reasons: Physical exam Intake Note: Patient is here today for a physical. 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 Transportation Planner: Not Required per policy Accompanied by: Self / Same As Patient Allergies Penicillins [PENICILLINS] Allergy (Severe, Verified 08/04/23 13:52) DIFFICULTY BREATHING penicillin V Allergy (Unknown, Verified 08/04/23 13:52) throat swlelling, anaphylaxis From Augmentin Allergy (Unknown, Uncoded 08/04/23 13:52) UNKNOWN Medication List - Last Reconciled 08/04/23 by Carlos Hilliard MD amitriptyline 10 mg PO BEDTIME 30 days cyclobenzaprine 10 mg PO BEDTIME PRN diclofenac sodium 50 mg PO BID 14 days gabapentin 300 mg PO TID omeprazole 20 mg PO DAILY 30 days Tobacco use date assessed: 08/04/23 Dental Screening Dental Screen Date: 08/04/23 Did you have a dental visit in the last 12 months?: Yes Did you have a dental problem in the last 6 months where you did not have access to dental care?: No Was dental information given to patient?: Patient has dentist HPI Physical exam HPI Details 33-year-old male presents to the office requesting a physical. His primary care provider is not available and I am stepping in. Patient was seen at a hospital elsewhere, yesterday for abdominal pain. Complains of vague pain in the inguinal area and was put on cyclobenzaprine. Currently he is not working. Admits to heavy drinking and smoking. Has been using marijuana excessively. [facility] Medical History Neurological symptoms Hypertension Diabetes Family history of diabetes mellitus Blurred vision Surgical History Rupture of right patellar tendon Family History Father Hx of diabetes mellitus History of high blood pressure Mother No problems noted. Mother No problems noted. Social History Housing: House Alcohol intake: former Patient Tobacco Use Status: Former Tobacco user Tobacco use type: Cigarette e-Cigarette/Vaping Use: Never Used Second Hand Smoke Exposure: Yes Substance Use Type: Crack/Cocaine and Marijuana service: No Current occupational status: unemployed Current occupation: [employer] - [place] [employer] Current occupational exposures/hazards: No Cognitive needs: No Hearing needs: No Vision needs: Yes Questionnaire Thrive Questionnaire Date Thrive assessed: 12/29/22 ETTA-7 AMB Questionnaire ETTA-7 Date ETTA - 7 assessed: 12/29/22 Source: Developed by Drs. Nicholas Servin, Anny Ramon, Gerhard Bennett and colleagues, with an educational mercedes from [employer]. Physical exam (Primary Care) Vital Signs: Last Vital Signs Pulse 54 08/04/23 13:33 BP 132/78 08/04/23 13:33 Pulse Ox 98 08/04/23 13:33 Oxygen Delivery Method Room Air 08/04/23 13:33 Care Plan Goal for BP management: Stable blood pressure. On no medications. BMI result Body Mass Index 25.1 Tobacco/Smoking Status: Tobacco use Status Tobacco use date assessed 08/04/23 08/04/23 13:38 Patient Tobacco Use Status Former Tobacco user 08/04/23 13:38 Tobacco use type Cigarette 08/04/23 13:38 e-Cigarette/Vaping Use Never Used 08/04/23 13:38 Thrive Assessment: Date of Thrive Assessment Date Thrive assessed 12/29/22 08/04/23 13:38 Const General: cooperative and healthy appearing Nutritional Appearance: well nourished Orientation/consciousness: patient oriented x3 Limitations: no limitations HENMT Head: Yes normal to inspection Eyes General: appearance normal, both eyes and all related structures Neck Neck: Yes normal visual inspection Chest Chest palpation & inspection: normal palpation of entire chest wall Resp Effort & Inspection: normal respiratory effort Neuro General: patient oriented x3 Assessment and Plan Assessment & Plan (1) Screening for STD (sexually transmitted disease): Code(s): Z11.3 - Encounter for screening for infections with a predominantly sexual mode of transmission Plan: Patient was requesting STD screening. Relevant test ordered. (2) Annual physical exam: Code(s): Z00.00 - Encounter for general adult medical examination without abnormal findings Plan: Records from yesterday's ER visit to be obtained. Blood work has been ordered. PPI has been started. Patient was encouraged to abstain from alcohol. Muscle relaxants ordered. Orders: Orders Syphilis Screen Today Z00.00 - Encounter for general adult medical examination without abnormal findings, Z11.3 - Encounter for screening for infections with a predominantly sexual mode of transmission Thyroid Stimulating Hormone Today Z00.00 - Encounter for general adult medical examination without abnormal findings, Z11.3 - Encounter for screening for infections with a predominantly sexual mode of transmission UA and rflx microscopic Today Z00.00 - Encounter for general adult medical examination without abnormal findings, Z11.3 - Encounter for screening for infections with a predominantly sexual mode of transmission Complete Blood Count no Diff Today Z00.00 - Encounter for general adult medical examination without abnormal findings, Z11.3 - Encounter for screening for infections with a predominantly sexual mode of transmission CT NG by PCR Today Z00.00 - Encounter for general adult medical examination without abnormal findings, Z11.3 - Encounter for screening for infections with a predominantly sexual mode of transmission Basic Metabolic Panel Today Z00.00 - Encounter for general adult medical examination without abnormal findings, Z11.3 - Encounter for screening for infections with a predominantly sexual mode of transmission Lipid Panel Today Z00.00 - Encounter for general adult medical examination without abnormal findings, Z11.3 - Encounter for screening for infections with a predominantly sexual mode of transmission Liver Panel Today Z00.00 - Encounter for general adult medical examination without abnormal findings, Z11.3 - Encounter for screening for infections with a predominantly sexual mode of transmission HIV Ab/Ag Today Z00.00 - Encounter for general adult medical examination without abnormal findings, Z11.3 - Encounter for screening for infections with a predominantly sexual mode of transmission Erythrocyte Sedimentation Rate Today Z00.00 - Encounter for general adult medical examination without abnormal findings, Z11.3 - Encounter for screening for infections with a predominantly sexual mode of transmission Medications: Changed From cyclobenzaprine 10 mg PO TID PRN 10 tabs 0RF muscle spasm To cyclobenzaprine 10 mg PO BEDTIME PRN 20 tabs 0RF muscle spasm Refilled amitriptyline 10 mg PO BEDTIME 30 days 30 tabs 3RF Concussion F07.81 - Postconcussional syndrome, K21.9 - Gastro-esophageal reflux disease without esophagitis omeprazole 20 mg PO DAILY 30 days 30 caps 3RF reflux K21.9 - Gastro-esophageal reflux disease without esophagitis Coding Level of Care Code Est Pt Prev Care 18-39y(63064) Diagnoses Screening for STD (sexually transmitted disease) Z11.3 Annual physical exam Z00.00
[2023-08-04 13:33] VITALS: BP 132/78; PULSE 54; O2SAT 98; BMI 25.1
== END 2023-08-04 13:54 | disposition home or self-care (01) ==
PROVIDERS: PCP Physician Assistant; Visit Provider Internal Medicine
DX: Z00.00 Encounter for general adult medical examination without abnormal findings (principal); Z11.3 Encounter for screening for infections with a predominantly sexual mode of transmission; F33.1 Major depressive disorder, recurrent, moderate; Z83.3 Family history of diabetes mellitus; K21.9 Gastro-esophageal reflux disease without esophagitis
CPT/HCPCS: 99395

== ENCOUNTER 2023-08-04 14:05 | Outpatient (REF) | payer OTHER, SELFPAY ==
[2023-08-04 14:41] LABS: Hematocrit 43.9 % (42.0-52.0); Hemoglobin 14.2 g/dl (14.0-18.0); Mean Corpuscular HGB Conc 32.3 g/dl (31.0-36.0); Mean Corpuscular Hemoglobin 31.4 pg (27.0-33.0); Mean Corpuscular Volume 97.1 fL (80.0-98.0); Mean Platelet Volume 10.2 fL (9.4-12.4); Platelet Count 244 X10*3/uL (160-400); Red Blood Count 4.52 X10*6/uL (4.60-5.80); Red Cell Distribution Width 11.9 % (11.0-16.0); White Blood Count 7.2 X10*3/uL (4.8-10.8)
[2023-08-04 15:09] LABS: Appearance Urine Clear; Color Urine Yellow; Glucose Urine UA Negative (Negative); Leukocyte Esterase Urine Negative (Negative); Nitrite Urine Negative (Negative); PH 6.5 (5.0-9.0); Specific Gravity - Urine 1.025 (1.005-1.025); Urine Blood Negative (Negative); Urine Ketones Negative (Negative); Urine Protein Negative (Neg-Trace)
[2023-08-04 15:25] LABS: Erythrocyte Sedimentation Rate 1 MM/HR (0-15)
[2023-08-04 15:44] LABS: Alanine Aminotransferase 15 U/L (0-40); Albumin Level 4.1 g/dL (3.5-5.0); Alkaline Phosphatase 69 U/L (39-117); Anion Gap 11 (12-20); Aspartate Amino Transferase 17 U/L (5-37); Bilirubin Direct 0.3 mg/dL (0.0-0.5); Bilirubin Total 0.6 mg/dL (0.0-1.0); Blood Urea Nitrogen 11 mg/dL (9-16); Carbon Dioxide 25 mmol/L (22-29); Chloride 105 mmol/L (96-108); Cholesterol 109 mg/dL (<200); Estimated Glomerular Filt Rate > 60; Glucose Random 81 mg/dL (60-115); HDL Cholesterol 51 mg/dL (>40); LDL Cholesterol Calculated 51 mg/dL (<100); Potassium 3.6 mmol/L (3.3-5.1); Sodium 137 mmol/L (135-145); Total Protein 7.5 g/dL (6.5-8.0); Triglycerides 38 mg/dL (<150)
[2023-08-04 15:59] LABS: Thyroid Stimulating Hormone 0.62 uIU/mL (0.32-4.0)
[2023-08-05 04:18] LABS: Syphilis Screen Reactive (Nonreactive)
[2023-08-05 04:33] LABS: HIV AB/AG Nonreactive (Nonreactive); HIV Num 1 0.03 S/CO (0.00-0.99)
[2023-08-13 09:20] LABS: RPR Quantitative Non-Reactive (Nonreactive); T.Pallidum Particle Agg Test Reactive (Nonreactive)
== END 2023-08-04 14:06 | disposition home or self-care (01) ==
LOC: HO.LAB 14:05
PROVIDERS: PCP Physician Assistant; Visit Provider Internal Medicine
DX: Z00.00 Encounter for general adult medical examination without abnormal findings (principal); Z11.3 Encounter for screening for infections with a predominantly sexual mode of transmission
CPT/HCPCS: 36415; 80048; 80061; 80076; 81003; 84443; 85027; 85652; 86592; 86780; 87389

== ENCOUNTER 2023-09-08 11:42 | Outpatient (AMB) | payer OTHER, SELFPAY ==
--- NOTE | 2023-09-08 11:55 | A.OFFVIS_ITS ---
Intake Vital Signs 09/08/23 11:58 Height 5 ft 10 in Weight 173 lb BMI 24.8 BP 110/69 Blood Pressure Location Lt brachial Position Sitting Pulse 62 Intake Visit Reasons: Gastroesophageal reflux disease (GERD) Intake Note: Patient follow up for GERD. Patient cc: GERD on and off, denies any other GI issues. 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 Accompanied by: Spouse Allergies Penicillins [PENICILLINS] Allergy (Severe, Verified 09/08/23 11:54) DIFFICULTY BREATHING penicillin V Allergy (Unknown, Verified 09/08/23 11:54) throat swlelling, anaphylaxis From Augmentin Allergy (Unknown, Uncoded 08/04/23 13:52) UNKNOWN Medication List - Last Reconciled 09/08/23 by Chelsea Zurita PA-C amitriptyline 10 mg PO BEDTIME 30 days cyclobenzaprine 10 mg PO BEDTIME PRN diclofenac sodium 50 mg PO BID 14 days escitalopram oxalate (Lexapro) 10 mg PO DAILY 30 days gabapentin 300 mg PO TID mirtazapine 15 mg PO BEDTIME 30 days omeprazole 20 mg PO DAILY 30 days HPI HPI Comments History of Present Illness Details 33-year-old male seen back in 2020 with acid reflux he had been taken omeprazole however made dietary modifications with good response. He had discontinued PPI and had no issues. Presents today- says he is here because he sometime throws up , looks like blood- missed his appts with us- He has not vomitted in a bout 20 days-he has not had any alcohol yet today he is not forthcoming - says he was drinking alot- cut back he now drinks about 3 pts of vodka-most days, doesn't eat- prefer to drink Lost weight - he is very depressed- no therapy- waiting on referral-f/u-taking citolpram- No suicidal homicidal ideation Fiancee is present they are getting on the weekend No for abdominal pain, fever, chills, PFSH Medical History Neurological symptoms Hypertension Diabetes Family history of diabetes mellitus Blurred vision Surgical History Rupture of right patellar tendon Family History Father Hx of diabetes mellitus History of high blood pressure Mother No problems noted. Mother No problems noted. 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[place] [employer] Current occupational exposures/hazards: No Cognitive needs: No Hearing needs: No Vision needs: Yes Review of Systems Const All systems reviewed & are unremarkable except as noted in HPI and below Card Denies chest pain and Denies dyspnea Resp Denies dyspnea GI Reports heartburn, Denies diarrhea, Denies nausea and Denies hematemesis (Reported about several weeks ago has not had any further episodes) Physical Exam Vital Signs: Last Vital Signs Pulse 62 09/08/23 11:58 BP 110/69 09/08/23 11:58 BMI result Body Mass Index 24.8 Const General: comfortable and no acute distress Orientation/consciousness: patient oriented x3 Limitations: no limitations Eyes Sclerae: sclerae normal Resp Effort & Inspection: normal respiratory effort and able to speak in complete sentences Auscultation: clear to auscultation bilaterally, no rales, no rhonchi and no wheezes Cardio Rate: regular rate Rhythm: regular rhythm Heart sounds: S1 normal heart sound present and S2 normal heart sound present GI Palpation (GI): Soft to palpation and nontender Auscultation: normal bowel sounds Skin General skin exam: no rashes or lesions noted and no jaundice Neuro General: patient oriented x3 Extrem General: Yes full ROM Psych Appearance: well kempt Speech and movement: Clear speech present Affect: Labile affect present Attitude: cooperative and Avoids eye contact (attititude/behavior) Assessment & Plan Assessment & Plan (1) Hematemesis/vomiting blood: Comment: Reported ? blood, no further episodes for about 3 weeks Though has continued to drink alcohol Code(s): K92.0 - Hematemesis Plan: Monitor symptoms CBC (2) Alcohol use disorder: Comment: 33-year-old male-significant daily alcohol consumption Conversation detailing risks he undertakes by continuing alcohol at this rate- The reportedly has reduced his intake it is quite significant His fiancee is present-and she had stool his story as to the extent of alcohol use Does not seem to have a plan to discontinue Plan: Consider detox (3) GERD (gastroesophageal reflux disease): Comment: Code(s): K21.9 - Gastro-esophageal reflux disease without esophagitis Qualifiers: Esophagitis presence: without esophagitis Qualified Code(s): K21.9 - Gastro-esophageal reflux disease without esophagitis Plan: Omeprazole Carafate Reduce alcohol consumption Reviewed reflux precautions Avoid culprits Plan EGD Omeprazole Carafate Reduce alcohol consumption Reviewed reflux precautions Avoid culprits Orders: Orders Complete Blood Count Auto Diff 09/08/23 K92.0 - Hematemesis Comprehensive Met. Panel 09/08/23 K92.0 - Hematemesis EDG - GI Use Only 09/08/23 K21.9 - Gastro-esophageal reflux disease without esophagitis, K92.0 - Hematemesis Lipase 09/08/23 K92.0 - Hematemesis Alcohol, Ethyl Urine Screen 09/08/23 K92.0 - Hematemesis Medications: New omeprazole 20 mg PO BID 30 days 60 caps 2RF sucralfate 1 g PO QIDACHS 21 days PRN 90 tabs 1RF acid reflux Patient Instructions: EGD- Monitor symptoms to include hematemesis Omeprazole Carafate Reduce alcohol consumption Reviewed reflux precautions Avoid culprits Call with any questions or concerns Hematemesis, hemoptysis go to ED No major barriers to understanding were identified Coding Level of Care Code Tele Est Pt Level 3 (71396) Diagnoses Hematemesis/vomiting blood K92.0 Alcohol use disorder F10.90 Gastroesophageal reflux disease without esophagitis K21.9 Esophagitis presence: without esophagitis Time Spent (min) 30
[2023-09-08 11:58] VITALS: BP 110/69; PULSE 62; BMI 24.8
== END 2023-09-08 12:33 | disposition home or self-care (01) ==
PROVIDERS: PCP Physician Assistant; Visit Provider Physician Assistant
DX: K92.0 Hematemesis (principal); F10.90 Alcohol use, unspecified, uncomplicated; K21.9 Gastro-esophageal reflux disease without esophagitis
CPT/HCPCS: 99213

== ENCOUNTER 2023-09-08 11:42 | Outpatient (REF) | payer OTHER, SELFPAY ==
[2023-09-08 15:43] LABS: MANUAL DIFF FLAG NO
[2023-09-08 15:48] LABS: Basophils Percent Auto 0.3 % (0-2); Eosinophils Absolute Auto 0.3 X10*3/uL (0.0-0.4); Eosinophils Percent Auto 4.3 % (0-4); Hematocrit 44.9 % (42.0-52.0); Hemoglobin 14.4 g/dl (14.0-18.0); Imm Gran Abs Auto 0.01 X10*3/uL (0.00-0.03); Imm Gran Pct Auto 0.1 % (0.0-0.4); Lymphocytes Absolute Auto 1.8 X10*3/uL (1.2-4.9); Lymphocytes Percent Auto 23.3 % (20-40); Mean Corpuscular HGB Conc 32.1 g/dl (31.0-36.0); Mean Corpuscular Volume 96.6 fL (80.0-98.0); Mean Platelet Volume 9.6 fL (9.4-12.4); Monocytes Absolute Auto 1.1 X10*3/uL (0.1-1.2); Monocytes Percent Auto 13.9 % (2-11); Neutrophils Absolute Auto 4.5 x10*3/uL (2.0-8.3); Neutrophils Percent Auto 58.1 % (45-73); Platelet Count 237 X10*3/uL (160-400); Red Blood Count 4.65 X10*6/uL (4.60-5.80); Red Cell Distribution Width 11.7 % (11.0-16.0); White Blood Count 7.7 X10*3/uL (4.8-10.8)
[2023-09-08 16:12] LABS: Alanine Aminotransferase 16 U/L (0-40); Alkaline Phosphatase 87 U/L (39-117); Anion Gap 9 (12-20); Aspartate Amino Transferase 18 U/L (5-37); Bilirubin Total 0.5 mg/dL (0.0-1.0); Blood Urea Nitrogen 16 mg/dL (9-16); Calcium 8.9 mg/dL (8.4-10.2); Carbon Dioxide 28 mmol/L (22-29); Chloride 105 mmol/L (96-108); Estimated Glomerular Filt Rate > 60; Glucose Random 96 mg/dL (60-115); Lipase 21 U/L (8-78); Sodium 138 mmol/L (135-145); Total Protein 7.5 g/dL (6.5-8.0)
[2023-09-13 08:46] LABS: Alcohol, Ethyl Urine Screen NEGATIVE
== END 2023-09-08 11:43 | disposition home or self-care (01) ==
LOC: HO.LAB 11:42
PROVIDERS: PCP Physician Assistant; Visit Provider Physician Assistant
DX: K92.0 Hematemesis (principal); K21.9 Gastro-esophageal reflux disease without esophagitis; F10.90 Alcohol use, unspecified, uncomplicated
CPT/HCPCS: 80053; 80307; 83690; 85025

== ENCOUNTER 2023-09-10 10:28 | Outpatient (REF) | payer OTHER, SELFPAY ==
[2023-09-10 10:44] LABS: MANUAL DIFF FLAG NO
[2023-09-10 11:47] LABS: Basophils Percent Auto 0.5 % (0-2); Eosinophils Absolute Auto 0.3 X10*3/uL (0.0-0.4); Eosinophils Percent Auto 5.1 % (0-4); Hemoglobin 14.7 g/dl (14.0-18.0); Imm Gran Abs Auto 0.02 X10*3/uL (0.00-0.03); Imm Gran Pct Auto 0.3 % (0.0-0.4); Lymphocytes Absolute Auto 1.5 X10*3/uL (1.2-4.9); Lymphocytes Percent Auto 22.7 % (20-40); Mean Corpuscular Hemoglobin 31.7 pg (27.0-33.0); Mean Corpuscular Volume 99.4 fL (80.0-98.0); Mean Platelet Volume 10.6 fL (9.4-12.4); Monocytes Absolute Auto 0.8 X10*3/uL (0.1-1.2); Monocytes Percent Auto 12.6 % (2-11); Neutrophils Absolute Auto 3.9 x10*3/uL (2.0-8.3); Neutrophils Percent Auto 58.8 % (45-73); Platelet Count 252 X10*3/uL (160-400); Red Blood Count 4.63 X10*6/uL (4.60-5.80); Red Cell Distribution Width 11.7 % (11.0-16.0); White Blood Count 6.5 X10*3/uL (4.8-10.8)
[2023-09-10 12:13] LABS: Erythrocyte Sedimentation Rate 2 MM/HR (0-15)
[2023-09-10 12:22] LABS: C Reactive Protein 0.11 mg/dL (< or = 0.50)
== END 2023-09-10 10:29 | disposition home or self-care (01) ==
LOC: HO.LAB 10:28
PROVIDERS: PCP Physician Assistant; Visit Provider Physician Assistant Surgical
DX: M25.561 Pain in right knee (principal)
CPT/HCPCS: 36415; 85025; 85652; 86140

== ENCOUNTER 2023-10-12 12:39 | Outpatient (AMB) | payer OTHER, SELFPAY ==
--- NOTE | 2023-10-12 12:48 | MHC.OFFVIS ---
Intake Vital Signs 10/12/23 12:50 Height 5 ft 10 in Weight 180 lb 12.465 oz BMI 25.9 BP 123/85 Blood Pressure Location Lt brachial Position Sitting Pulse 65 Intake Visit Reasons: follow up Intake Note: Shaan presents in the office as a follow up. CC: He states he is still having the same pains in the abdomen. 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 Allergies Penicillins [PENICILLINS] Allergy (Severe, Verified 10/12/23 12:51) DIFFICULTY BREATHING penicillin V Allergy (Unknown, Verified 10/12/23 12:51) throat swlelling, anaphylaxis From Augmentin Allergy (Unknown, Uncoded 10/12/23 12:51) UNKNOWN Medication List - Last Reconciled 10/13/23 by Chelsea Zurita PA-C amitriptyline 10 mg PO BEDTIME 30 days cyclobenzaprine 10 mg PO BEDTIME PRN diclofenac sodium 50 mg PO BID 14 days escitalopram oxalate (Lexapro) 10 mg PO DAILY 30 days gabapentin 300 mg PO TID mirtazapine 15 mg PO BEDTIME 30 days omeprazole 20 mg PO BID 30 days sucralfate 1 g PO QIDACHS PRN 21 days sucralfate 1 g PO QIDACHS PRN 21 days HPI HPI Comments History of Present Illness Details Here today with his , A 33 y/o male etoh use follows up for progress- he says that he has cut back on his alcohol however being new year's he did drink 2 pt of vodka. He does admit that he has not been taking PPI for least 1 week. He had been prescribed Carafate he has never infected up from the pharmacy. Appetite is fairly good Reviewed blood work-from last visit He has no issues with this bowel He has no nausea, no vomiting, fever or chills [facility] Medical History Neurological symptoms Hypertension Diabetes Family history of diabetes mellitus Blurred vision Surgical History Rupture of right patellar tendon Family History Father Hx of diabetes mellitus History of high blood pressure Mother No problems noted. Mother No problems noted. 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[place] [employer] Current occupational exposures/hazards: No Cognitive needs: No Hearing needs: No Vision needs: Yes Review of Systems Const All systems reviewed & are unremarkable except as noted in HPI and below Card Denies chest pain and Denies dyspnea Resp Denies cough and Denies dyspnea GI Denies abdominal pain, Denies hematochezia, Reports heartburn, Denies nausea and Denies vomiting Physical Exam Vital Signs: Last Vital Signs Pulse 65 10/12/23 12:50 BP 123/85 10/12/23 12:50 BMI result Body Mass Index 25.9 Const General: cooperative, healthy appearing, comfortable and no acute distress Orientation/consciousness: patient oriented x3 Limitations: language barrier Eyes Sclerae: sclerae normal Resp Effort & Inspection: normal respiratory effort and able to speak in complete sentences Skin General skin exam: no rashes or lesions noted Neuro General: patient oriented x3 Extrem General: Yes full ROM Psych Appearance: grossly normal and well kempt Mental Status: mental status grossly normal Speech and movement: Normal speech and movement present Affect: Labile affect present Assessment & Plan Assessment & Plan (1) Alcohol use disorder: Comment: 33-year-old male-significant daily alcohol consumption- likely plays role with acid reflux Conversation detailing risks he undertakes by continuing alcohol at this rate-again reviewed reduced his intake it- Does not seem to have a plan to discontinue (2) GERD (gastroesophageal reflux disease): Comment: Alcohol likely plays a role Reflux precaution Code(s): K21.9 - Gastro-esophageal reflux disease without esophagitis Qualifiers: Esophagitis presence: without esophagitis Qualified Code(s): K21.9 - Gastro-esophageal reflux disease without esophagitis Plan: Reflux precautions H pylori stool antigen Carafate PPI once sample submitted Plan H pylori stool antigen if positive treat Encourage to abstain alcohol PPI as prescribed Work note as request Orders: Orders H pylori Ag Stool 1 Week A04.8 - Other specified bacterial intestinal infections Medications: New sucralfate 1 g PO QIDACHS 21 days PRN 90 tabs 1RF reflux Patient Instructions: Carafate q.i.d. Will obtain H pylori stool antigen, if positive will treat Reviewed treatment course that will follow if positive-a he is aware to call for results 2 days after submits Otherwise will begin omeprazole 20 mg daily as prescribed Reviewed reflux precautions to include abstain from alcohol, caffeine, nicotine, peppermint remain upright 2-3 hours after eating Encouraged to call questions or concerns Again reinforced importance of follow through Coding Level of Care Code Est Pt Level 3 ([id number]) Diagnoses Alcohol use disorder F10.90 Gastroesophageal reflux disease without esophagitis K21.9 Esophagitis presence: without esophagitis Time Spent (min) 30 Comment present interprets for him
[2023-10-12 12:50] VITALS: BP 123/85; PULSE 65; BMI 25.9
== END 2023-10-12 13:27 | disposition home or self-care (01) ==
PROVIDERS: PCP Physician Assistant; Visit Provider Physician Assistant
DX: F10.90 Alcohol use, unspecified, uncomplicated (principal); K21.9 Gastro-esophageal reflux disease without esophagitis
CPT/HCPCS: 99213

== ENCOUNTER → 2023-10-12 12:39 | Outpatient (BNVA) | payer OTHER, SELFPAY | PROVIDERS: PCP Physician Assistant; Visit Provider Physician Assistant | DX: K21.9 Gastro-esophageal reflux disease without esophagitis (principal); F10.90 Alcohol use, unspecified, uncomplicated | CPT/HCPCS: 99212 ==

== ENCOUNTER 2023-11-15 08:57 | Outpatient (AMB) | payer OTHER, SELFPAY ==
[2023-11-15 09:28] VITALS: BP 108/62; PULSE 64; O2SAT 97; BMI 26.3
--- NOTE | 2023-11-15 09:28 | MHC.PC.OV ---
Vital Signs 11/15/23 09:28 Height 5 ft 10 in Weight 183 lb BMI 26.3 BP 108/62 Blood Pressure Location Lt brachial Position Sitting Pulse 64 Pulse Source Pulse Oximeter Pulse Oximetry (%) 97 Oxygen Delivery Method Room Air Intake Visit Reasons: Post knee surgery/ ? hernia Various Exceptionalities Teacher Required: No Accompanied by: Self / Same As Patient Allergies Penicillins [PENICILLINS] Allergy (Severe, Verified 11/15/23 09:37) DIFFICULTY BREATHING penicillin V Allergy (Unknown, Verified 11/15/23 09:37) throat swlelling, anaphylaxis From Augmentin Allergy (Unknown, Uncoded 11/15/23 09:31) UNKNOWN Medication List - Last Reconciled 11/15/23 by Chlee Aquino PA-C escitalopram oxalate (Lexapro) 10 mg PO DAILY 30 days gabapentin 300 mg PO TID mirtazapine 15 mg PO BEDTIME 30 days omeprazole 20 mg PO BID 30 days oxycodone mg PO sulfamethoxazole-trimethoprim 800-160 mg 1 tab PO BID Tobacco use date assessed: 11/15/23 Dental Screening Dental Screen Date: 11/15/23 Did you have a dental visit in the last 12 months?: Yes Did you have a dental problem in the last 6 months where you did not have access to dental care?: No Was dental information given to patient?: Patient has dentist HPI Post knee surgery/ ? hernia HPI Details Patient is a 33-year-old male here today for follow-up visit. Recently underwent right knee surgery due to a torn patellar tendon cyst on 11/09 . He reports he is doing better though still has pain in his right knee. Has been using oxycodone though feels is not effective on reducing his pain. Has not use NSAIDs. Also has noted over the last several weeks worsening right lower abdominal pain. Has noted a lump that bulges out whenever he coughs or sneezes. He otherwise denies any issues using the restroom. [facility] Medical History Neurological symptoms Hypertension Diabetes Family history of diabetes mellitus Blurred vision Surgical History Rupture of right patellar tendon Family History Father Hx of diabetes mellitus History of high blood pressure Mother No problems noted. Mother No problems noted. Social History Housing: House Alcohol intake: former Patient Tobacco Use Status: Former Tobacco user Tobacco use type: Cigarette e-Cigarette/Vaping Use: Never Used Second Hand Smoke Exposure: Yes Substance Use Type: Crack/Cocaine and Marijuana service: No Current occupational status: unemployed Current occupation: [employer] Current occupational exposures/hazards: No Cognitive needs: No Hearing needs: No Vision needs: Yes Questionnaire PHQ-9 Over the last 2 weeks, how often have you been bothered by any of the following problems? 1. Little interest or pleasure in doing things: not at all 2. Feeling down, depressed, or hopeless: not at all 3. Trouble falling or staying asleep, or sleeping too much: not at all 4. Feeling tired or having little energy: not at all 5. Poor appetite or overeating: not at all 6. Feeling bad about yourself - or that you are a failure or have let yourself or your family down: not at all 7. Trouble concentrating on things, such as reading the newspaper or watching television: not at all 8. Moving or speaking so slowly that other people could have noticed. Or the opposite - being so fidgety or restless that you have been moving around a lot more than usual: not at all 9. Thoughts that you would be better off or of hurting yourself in some way: not at all Total score: 0 Depression Screening Interpretation: Negative Depression Screening Done: Yes 56869 - PHQ-9 Billing: Yes Source: Developed by Drs. Nicholas Servin, Anny Ramon, Gerhard Bennett and colleagues, with an educational mercedes from [employer]. Thrive Questionnaire Date Thrive assessed: 11/15/23 I am a: Patient What is your living situation today?: I have a steady place to live Within the past 12 months, did the food you bought not last and you didn't have the money to get more?: Never true Within the past 12 months, did you worry whether your food would run out before you got money to buy more?: Never true Do you have trouble paying for medicines?: No Do you have trouble getting transportation to medical appointments?: No Do you have trouble paying your heating and electricity bill?: No Do you have trouble taking care of your child, family member or friend?: No Do you have trouble with day-to-day activities such as bathing, preparing meals, shopping, managing finances, etc.?: No Are you currently unemployed and looking for a job?: No Are you interested in more education?: No Please select the resources that you would like help with: None Currently or been in a relationship where the following occur: no concerns reported THRIVE Score: 0 AUDIT C Alcohol Use Questionnaire (AUDIT-C) 1. How often do you have a drink containing alcohol?: Never 3. How often do you have six or more drinks on one occasion?: Never Total Score: 0 ETTA-7 AMB Questionnaire ETTA-7 Date ETTA - 7 assessed: 11/15/23 Feeling nervous, anxious, or on edge: 0 = Not at all Not being able to stop or control worryin = Not at all Worrying too much about different things: 0 = Not at all Trouble relaxin = Not at all Being so restless that it is hard to sit still: 0 = Not at all Becoming easily annoyed or irritable: 0 = Not at all Feeling afraid as if something awful might happen: 0 = Not at all Total ETTA-7 score (0-4 normal; 5-9 mild; 10-14 moderate; 15-21 severe): 0 Source: Developed by Drs. Nicholas Servin, Anny Ramon, Gerhard Bennett and colleagues, with an educational mercedes from [employer]. ETTA-7 Assessment Billing ETTA-7 Assessment Tool: ETTA-7 Assessment 93804 Review of Systems Const Denies headache(s) Eyes Denies loss of vision ENT Denies vertigo, Denies dizziness, Denies headache(s) and Denies sore throat Card Denies chest pain, Denies leg edema and Denies lightheadedness Resp Denies cough, Denies hemoptysis and Denies wheezing GI Denies abdominal pain, Denies melena, Denies constipation, Denies diarrhea and Denies vomiting Denies dysuria, Denies urinary frequency and Denies urinary urgency Musc Denies arthralgias, Denies joint swelling, Denies numbness and Denies tingling Neuro Denies Abnormal speech present, Denies behavioral changes, Denies vertigo, Denies dizziness, Denies headache(s), Denies loss of vision, Denies memory loss, Denies numbness and Denies tingling Psych Denies anxiety, Denies behavioral changes, Denies depression, Denies memory loss and Denies panic attacks Barrett/Lymph Denies easy bleeding and Denies easy bruising Aller/Immun Denies wheezing Physical exam (Primary Care) Vital Signs: Last Vital Signs Pulse 64 11/15/23 09:28 BP 108/62 11/15/23 09:28 Pulse Ox 97 11/15/23 09:28 Oxygen Delivery Method Room Air 11/15/23 09:28 BMI result Body Mass Index 26.3 Tobacco/Smoking Status: Tobacco use Status Tobacco use date assessed 11/15/23 11/15/23 09:34 Patient Tobacco Use Status Former Tobacco user 11/15/23 09:34 Tobacco use type Cigarette 11/15/23 09:34 e-Cigarette/Vaping Use Never Used 11/15/23 09:34 PHQ-9: PHQ-9 Score PHQ-9: Total score 0 11/15/23 09:34 Depression Screening Interpretation: Negative Thrive Assessment: Date of Thrive Assessment Date Thrive assessed 11/15/23 11/15/23 09:34 Currently or been in a relationship where the following occur: no concerns reported Const General: healthy appearing, no acute distress, alert and awake Nutritional Appearance: well nourished Orientation/consciousness: oriented to person, oriented to place and oriented to time HENMT Ears: TM's normal bilaterally General nose exam: Normal nasal mucous membranes and turbinates present Eyes Conjunctivae: conjunctivae normal Sclerae: sclerae normal Pupils: Equal, round and reactive pupils present Neck Neck: Yes no lymphadenopathy and Yes no JVD Thyroid: Thyroid normal Carotids: no bruits Resp Effort & Inspection: normal respiratory effort and not tachypneic Auscultation: no crackles, no rales, no rhonchi and no wheezes Cardio Rate: regular rate Rhythm: regular rhythm Heart sounds: no murmurs and normal S1 and S2 GI Palpation (GI): Soft to palpation, nontender, no hepatomegaly and no splenomegaly Auscultation: normal bowel sounds Male genitals images: 1. PALPABLE LUMP IN THE AREA OUTLINED Skin General skin exam: no rashes or lesions noted and dry skin Neuro General: oriented to person, oriented to place and oriented to time Cranial nerves: Yes Equal, round and reactive pupils present Speech: No Abnormal speech present Gait exam (Neuro): Normal gait present Motor exam (neuro): no tremor noted Extrem Right upper extremity: full ROM Left upper extremity: full ROM Right lower extremity: full ROM; no edema Left lower extremity: full ROM; no edema Psych Mental Status: mental status grossly normal Speech and movement: Normal speech and movement present Affect: normal affect Attitude: cooperative Thought process: Normal thought process present Assessment and Plan Assessment & Plan (1) Right inguinal hernia: Code(s): K40.90 - Unilateral inguinal hernia, without obstruction or gangrene, not specified as recurrent Plan: Patient does have palpable lump over right inguinal region. Will refer to general surgeon for evaluation and possible surgical fix. (2) Knee joint cyst, right: Code(s): M25.861 - Other specified joint disorders, right knee Plan: Patient is six days status post right knee surgery. He reports feeling somewhat better though still in pain. Has been using oxycodone though feels they are not effective. Will give short-term script of tramadol to see if he gets better pain relief. Advised to add on ibuprofen for swelling and try using cool compress. Orders: Referrals General Surgery Referral K40.90 - Unilateral inguinal hernia, without obstruction or gangrene, not specified as recurrent Medications: New tramadol 50 mg PO BID 5 days 10 tabs 0RF M25.861 - Other specified joint disorders, right knee Refilled mirtazapine 15 mg PO BEDTIME 30 days 30 tabs 1RF sleep F51.02 - Adjustment insomnia gabapentin 300 mg PO TID 30 caps 0RF Coding Level of Care Code Est Pt Level 3 (51166) Diagnoses Right inguinal hernia K40.90 Knee joint cyst, right M25.861 Additional Codes ETTA-7 Assessment Billing - ETTA-7 Assessment Tool: ETTA-7 Assessment 98530 ([id number])
== END 2023-11-15 09:48 | disposition home or self-care (01) ==
PROVIDERS: PCP Physician Assistant; Visit Provider Physician Assistant
DX: K40.90 Unilateral inguinal hernia, without obstruction or gangrene, not specified as recurrent (principal); M25.861 Other specified joint disorders, right knee
CPT/HCPCS: 99213

== ENCOUNTER 2023-12-16 14:09 | Outpatient (AMB) | payer OTHER, SELFPAY ==
--- NOTE | 2023-12-16 14:23 | A.OFFVIS_ITS ---
Intake Vital Signs 12/16/23 14:53 Height 5 ft 10 in Weight 189 lb 6 oz BMI 27.2 BP 139/83 Blood Pressure Location Lt brachial Position Sitting Pulse 68 Intake Visit Reasons: Inguinal hernia Intake Note: Patient is seen in office for evaluation and treatment of an right inguinal hernia. Pt c/o: onset one month, lump in the area, reducible, comes out when coughing, painful with prolonged sitting, had imaging done at [facility] (in pt chart). Hand Plug Shaper Required: No Accompanied by: Other Relationship Allergies Penicillins [PENICILLINS] Allergy (Severe, Verified 12/16/23 14:51) DIFFICULTY BREATHING penicillin V Allergy (Unknown, Verified 12/16/23 14:51) throat swlelling, anaphylaxis From Augmentin Allergy (Unknown, Uncoded 12/16/23 14:51) UNKNOWN Medication List - Last Reconciled 12/16/23 by Endy Ramos MD gabapentin 300 mg PO TID HPI HPI Comments History of Present Illness Details 33-year-old male patient presenting with a painful lump in the right groin 1st noted approximately 1 month ago. He reports the lump developed while lifting heavy objects. He denies a previous history of hernias or hernia surgery. He now feels a lump which increases in size when he is coughing. The lump does reduce spontaneously he has not needed to manually reduce the hernia. He denies nausea, vomiting, fever or chills. His bowels are normal. [facility] Medical History Neurological symptoms Hypertension Diabetes Family history of diabetes mellitus Blurred vision Surgical History Rupture of right patellar tendon Family History Father Hx of diabetes mellitus History of high blood pressure Mother No problems noted. Mother No problems noted. Social History Housing: House Alcohol intake: former Patient Tobacco Use Status: Former Tobacco user Tobacco use type: Cigarette e-Cigarette/Vaping Use: Never Used Second Hand Smoke Exposure: Yes Substance Use Type: Crack/Cocaine and Marijuana service: No Current occupational status: unemployed Current occupation: [employer] Current occupational exposures/hazards: No Cognitive needs: No Hearing needs: No Vision needs: Yes Review of Systems Const All systems reviewed & are unremarkable except as noted in HPI and below Denies chills, Denies fever(s), Denies headache(s), Denies poor appetite and Denies weakness ENT Denies headache(s) Card Denies chest pain, Denies irregular heart rhythm, Denies palpitations and Denies dyspnea Resp Denies cough, Denies excessive phlegm production and Denies dyspnea GI Denies abdominal pain, Denies bloating, Denies change in bowel habits, Denies constipation, Denies heartburn, Denies diarrhea, Denies nausea and Denies vomiting Denies difficulty urinating and Denies urinary frequency Musc Denies back pain, Denies muscle weakness and Denies numbness Skin/Breast Denies changing lesions and Denies unusual bruising Neuro Denies headache(s), Denies numbness, Denies paresthesias and Denies weakness Psych Denies anxiety and Denies depression Endo Denies palpitations Barrett/Lymph Denies lymphadenopathy Physical Exam Vital Signs: Last Vital Signs Pulse 68 12/16/23 14:53 BP 139/83 12/16/23 14:53 BMI result Body Mass Index 27.2 Const General: cooperative and no acute distress Nutritional Appearance: well nourished Orientation/consciousness: patient oriented x3 Limitations: no limitations HEENT Head: Yes normocephalic and Yes atraumatic Ears: hearing grossly normal bilaterally Resp Effort & Inspection: normal respiratory effort, no audible wheezes, no cough and no respiratory distress Cardio Jugular venous distension: no JVD GI Other: Palpable right inguinal hernia which increases in size with Valsalva but reduces easily with light pressure. No hernia noted on the left side. Inspection: Yes normal to inspection Skin Other: Warm, dry, no rash Neuro General: patient oriented x3 Extrem General: Yes no clubbing, cyanosis or edema Assessment & Plan Assessment & Plan (1) Right inguinal hernia: Code(s): K40.90 - Unilateral inguinal hernia, without obstruction or gangrene, not specified as recurrent Plan 33-year-old male patient found to have a right inguinal hernia of recent onset. The hernia is now symptomatic. On examination he has a reducible right inguinal hernia which increases with Valsalva maneuvers. I recommended repair on an elective basis with mesh. After discussion of the procedure, risks, and alternatives, he consents to a repair of the right inguinal hernia with mesh. Coding Level of Care Code New Pt Level 4 (45155) Diagnoses Right inguinal hernia K40.90
[2023-12-16 14:53] VITALS: BP 139/83; PULSE 68; BMI 27.2
== END 2023-12-16 15:15 | disposition home or self-care (01) ==
PROVIDERS: PCP Physician Assistant; Referring Provider Physician Assistant; Visit Provider Surgery
DX: K40.90 Unilateral inguinal hernia, without obstruction or gangrene, not specified as recurrent (principal)
CPT/HCPCS: 99204

== ENCOUNTER → 2023-12-16 14:09 | Outpatient (BNVA) | payer OTHER, SELFPAY | PROVIDERS: PCP Physician Assistant; Referring Provider Physician Assistant; Visit Provider Surgery | DX: K40.90 Unilateral inguinal hernia, without obstruction or gangrene, not specified as recurrent (principal) | CPT/HCPCS: 99202 ==

== ENCOUNTER 2024-01-03 07:18 | Day surgery (SDC) | payer OTHER, SELFPAY ==
[2023-12-30 09:05] VITALS: BMI 27.1
--- NOTE | 2023-12-31 10:10 | HO.ANESPROP2 ---
Documented by User: Isabel Noel NP 12/31/23 10:13 HPI - Anesthesia Eval Consult details Narrative: 33yo M for Right Hernia Inguinal Reducible with mesh PMFSH Active Problems Active Problems: All Active Problems (Updated 11/15/23 @ 09:44 by Chele Aquino PA-C) Knee joint cyst, right (Acute) Right inguinal hernia (Acute) Hematemesis/vomiting blood (Acute) Rib pain on right side (Acute) TBI (traumatic brain injury) (Acute) Post-concussion syndrome (Acute) Lumbar radiculitis (Acute) Annual physical exam (Acute) Allergic rhinitis (Acute) Peyronie's disease (Acute) Screening for STD (sexually transmitted disease) (Acute) Exposure to COVID-19 virus (Acute) ETTA (generalized anxiety disorder) (Acute) RLQ abdominal pain (Acute) Heart palpitations (Acute) Alcohol use disorder (Acute) MDD (major depressive disorder), recurrent episode, moderate (Acute) Lipoma of back (Acute) Medial epicondylitis, left elbow (Acute) Screening for hypothyroidism (Acute) Screening for STD (sexually transmitted disease) (Acute) Screening for diabetes mellitus (DM) (Acute) Annual physical exam (Acute) Neurological symptoms (Acute) Hypertension (Acute) Diabetes (Acute) Family history of diabetes mellitus (Acute) Blurred vision (Acute) Screening for diabetes mellitus (DM) (Acute) Postprandial epigastric pain (Acute) Insomnia (Acute) GERD (gastroesophageal reflux disease) (Acute) Past Medical History Medical History (Updated 01/03/24 @ 09:11 by Kelley Artis MD) Screening for diabetes mellitus (DM) Knee joint cyst, right Rib pain on right side Lumbar radiculitis Allergic rhinitis Exposure to COVID-19 virus Screening for hypothyroidism Screening for STD (sexually transmitted disease) Screening for diabetes mellitus (DM) TBI (traumatic brain injury) Neurological symptoms Family history of diabetes mellitus Blurred vision Family History Family History Father Hx of diabetes mellitus History of high blood pressure Mother No problems noted. Mother No problems noted. Surgical History Surgical History Rupture of right patellar tendon Social History Social History (Updated 01/03/24 @ 09:12 by Kelley Artis MD) Housing: House Alcohol intake: former Patient Tobacco Use Status: Former Tobacco user Quit Date: vapes Tobacco use type: Smokeless Tobacco e-Cigarette/Vaping Use: Never Used Second Hand Smoke Exposure: Yes Substance Use Type: Crack/Cocaine and Marijuana service: No Current occupational status: unemployed Current occupation: [employer] Current occupational exposures/hazards: No Cognitive needs: No Hearing needs: No Vision needs: Yes Meds Allergies Allergy/AdvReac Type Severity Reaction Status Date / Time Penicillins [PENICILLINS] Allergy Severe DIFFICULTY Verified 01/03/24 07:53 BREATHING penicillin V Allergy Unknown throat Verified 01/03/24 07:53 swlelling, anaphylaxis From Augmentin Allergy Unknown UNKNOWN Uncoded 12/16/23 14:51 Home Medications Medication Instructions Recorded Confirmed Last Taken Type mirtazapine 15 mg tablet 15 mg PO BEDTIME insomnia 12/31/23 01/03/24 Unknown History omeprazole 20 mg capsule,delayed 20 mg PO BID PRN Heartburn 12/31/23 01/03/24 Unknown History release Exam Height,Weight and Vital Signs: Height 5 ft 10 in Weight 85.729 kg Pertinent Lab Results Pertinent Lab Results: Laboratory Tests 09/08/23 09/10/23 15:40 10:43 WBC 6.5 Hgb 14.7 Hct 46.0 Plt Count 252 Sodium 138 Potassium 4.0 Chloride 105 Carbon Dioxide 28 BUN 16 Creatinine 0.75 Assessment and Plan Assessment Anesthesia Assessment: Chart Reviewed Documented by User: Kelley Artis MD 01/03/24 09:14 [facility] Active Problems Active Problems: All Active Problems (Updated 01/03/24 @ 08:40 by Kelley Artis nMD) Knee joint cyst, right (Acute) Right inguinal hernia (Acute) Hematemesis/vomiting blood (Acute). H/o ETOH abuse. Patient states alcohol use has reduced in last few months TBI (traumatic brain injury) (Acute) Post-concussion syndrome (Acute) Lumbar radiculitis (Acute) Allergic rhinitis (Acute) Peyronie's disease (Acute) ETTA (generalized anxiety disorder) (Acute) RLQ abdominal pain (Acute) Heart palpitations (Acute) Alcohol use disorder (Acute) MDD (major depressive disorder), recurrent episode, moderate (Acute) Lipoma of back (Acute) Medial epicondylitis, left elbow (Acute) Hypertension - patient denies Diabetes (Acute)- patient denies Family history of diabetes mellitus (Acute) Blurred vision (Acute) Postprandial epigastric pain (Acute) Insomnia (Acute) GERD (gastroesophageal reflux disease) (Acute) Past Medical History Medical History (Updated 01/03/24 @ 09:11 by Kelley Artis MD) Screening for diabetes mellitus (DM) Knee joint cyst, right Rib pain on right side Lumbar radiculitis Allergic rhinitis Exposure to COVID-19 virus Screening for hypothyroidism Screening for STD (sexually transmitted disease) Screening for diabetes mellitus (DM) TBI (traumatic brain injury) Neurological symptoms Family history of diabetes mellitus Blurred vision Family History Family History Father Hx of diabetes mellitus History of high blood pressure Mother No problems noted. Mother No problems noted. Family history of problems with anesthesia: No Surgical History Surgical History Rupture of right patellar tendon History of Problems with Anesthesia: No Social History Social History (Updated 01/03/24 @ 09:12 by Kelley Artis MD) Housing: House Alcohol intake: former Patient Tobacco Use Status: Former Tobacco user Quit Date: vapes Tobacco use type: Smokeless Tobacco e-Cigarette/Vaping Use: Never Used Second Hand Smoke Exposure: Yes Substance Use Type: Crack/Cocaine and Marijuana service: No Current occupational status: unemployed Current occupation: [employer] Current occupational exposures/hazards: No Cognitive needs: No Hearing needs: No Vision needs: Yes Meds Allergies Allergy/AdvReac Type Severity Reaction Status Date / Time Penicillins [PENICILLINS] Allergy Severe DIFFICULTY Verified 01/03/24 07:53 BREATHING penicillin V Allergy Unknown throat Verified 01/03/24 07:53 swlelling, anaphylaxis From Augmentin Allergy Unknown UNKNOWN Uncoded 12/16/23 14:51 Home Medications Medication Instructions Recorded Confirmed Last Taken Type mirtazapine 15 mg tablet 15 mg PO BEDTIME insomnia 12/31/23 01/03/24 Unknown History omeprazole 20 mg capsule,delayed 20 mg PO BID PRN Heartburn 12/31/23 01/03/24 Unknown History release Exam Height,Weight and Vital Signs: Height 5 ft 10 in Weight 85.729 kg Vital Signs Temp Pulse Resp BP Pulse Ox O2 Del Method 01/03/24 08:23 98.3 F 61 15 118/65 98 Room Air Airway Mallampati Class: II TM Dist: >3cm Neck ROM: Full Loose/Missing/Broken Teeth: No (Braces top teeth. Denies broken, loose, missing teeth) Heart: RRR Lungs: CTAB Assessment and Plan Assessment Anesthesia Assessment: Anesthesia Plan Discussed and Chart Reviewed Final Anesthetic Review Family History of Problems with Anesthesia: No History of Problems with Anesthesia: No NPO: Yes ASA Class: III Final Preanesthetic Review: No Changes in Pt Med Stat, Meds/Allgs Chart Reviewed, Consent Obtained/Reviewed and Anes Risks/Benef Reviewed Patient Risk: Intermediate Procedure Risk: Low Assessment/Block/Sedation in SS: Assess/Block/Sedation-SS Anesthetic Plan Anesthetic Plan: GA Disposition: Standard PACU
[2024-01-03 07:51] VITALS: BMI 28.0
[2024-01-03] MEDS: vancomycin HCL 1,500 MG in 0.9 % Sodium Chloride 500 ML 333.33 MG IV (08:13)
[2024-01-03] MEDS: Lactated Ringers 1,000 ML 100 ML IVCONT (08:14)
[2024-01-03 08:23] VITALS: BP 118/65; PULSE 61; RESP 15; TEMP 36.8; O2SAT 98
--- NOTE | 2024-01-03 08:32 | MHC.SHP ---
Pre-Procedural Eval Section A - 24 Hr Update-Section A only Date of Service: 01/03/24 The patient is an INPATIENT: No Changes since office visit: Yes Patient answered all questions; No Cold of Flu in the past 2 weeks, No New Medical Problems and No Changes in Medication The patient has been examined within 24 hours of the surgical procedure. The History & Physical has been completed within 30 days and I have reviewed it.: Yes Section B - Complete if H&P > 30 days Chief Complaint: Unilateral inguinal hernia, without obstruction Allergies: Allergies Allergy/AdvReac Type Severity Reaction Status Date / Time Penicillins [PENICILLINS] Allergy Severe DIFFICULTY Verified 01/03/24 07:53 BREATHING penicillin V Allergy Unknown throat Verified 01/03/24 07:53 swlelling, anaphylaxis From Augmentin Allergy Unknown UNKNOWN Uncoded 12/16/23 14:51 Plan Diagnosis/Plan: Unchanged I have reviewed the history and physical and performed a pertinent physical examination on my patient. No changes have occurred unless specified. Time Spent With Patient Time: Total time managing care of this patient today ____ minutes.
--- NOTE | 2024-01-03 09:12 | W.PM.OPN ---
Operative Note Operative Note Date of Service: 01/03/24 Narrative: Preoperative diagnosis: Right inguinal hernia, reducible Postoperative diagnosis: Right inguinal hernia, reducible Procedure: Repair of right inguinal hernia with mesh Surgeon: Endy Ramos MD Corporate General Manager: Brigette Eubanks PA-C Anesthesia: General LMA Indications for procedure: 33-year-old male patient presenting with a painful lump in the right groin. On examination the lump increases in size with lifting and reduces with light pressure. Operative findings: Combination of a small indirect and larger direct inguinal hernia Specimen: None Estimated blood loss: Less than 2 mL Complications: None Procedure details: Patient was brought to the OR and placed in a supine position. After administering general anesthesia the patient's abdomen was prepped with ChloraPrep and draped in a sterile fashion. A surgical time-out was called and the consent confirmed. Patient received preoperative antibiotics and Venodyne boots were in place. Local anesthesia was infiltrated over the right inguinal ligament. Incision was then made with a scalpel and carried out through subcutaneous tissue, past Lizz's fascia, and up to the external oblique aponeurosis. Additional local was infiltrated below the aponeurosis. This was then incised with a scalpel and widened with the Metzenbaum scissors. The spermatic cord was then dissected free from the surrounding inguinal canal. This was then retracted using a Lisa drain. A small indirect inguinal hernia was identified at the internal ring. This was dissected free and plicated using a [id number] 0 Polysorb suture. Attention was then directed to the floor of the inguinal canal which was weakened and consistent with a direct inguinal hernia. Fibers of the internal oblique and transversalis aponeurosis were then incised with the electrocautery between Allis clamps. Preperitoneal space was then entered and then widened with a open Ray-Murali sponge. A large extended PHS mesh was then obtained. The circular underlay was deployed within the preperitoneal space. The overlay was then secured to the pubic tubercle, conjoined tendon, and shelving edge of the inguinal ligament using the 0 Polysorb suture. A slit was made in the mesh at the internal ring. The mesh was then wrapped around the spermatic cord and secured to the shelving edge of the inguinal ligament using a 0 Polysorb suture. The ring was tight enough to allow passage of the tip of the index finger. The remainder of the mesh was placed below the external oblique aponeurosis. Wounds were then irrigated with saline solution and suctioned dry. External oblique aponeurosis was then closed using a running 2-0 Polysorb suture. Naproxen a 6 mL of Zenrelef was then infiltrated below the external oblique aponeurosis. Lizz's fascia and dermis were then reapproximated using interrupted 3-0 Polysorb sutures. Skin was closed using a running subcuticular 4-0 Polysorb suture. Steri-Strips, 2 x 2 gauze and Tegaderm were then applied. The patient tolerated the procedure well. Sponge, instrument, and needle counts reported as correct. The patient was transferred to PACU in stable condition.
[2024-01-03 10:05] VITALS: BP 115/44; PULSE 63; RESP 16; TEMP 36.8; O2SAT 100
[2024-01-03 10:10] VITALS: BP 111/58; PULSE 61; RESP 16; O2SAT 98
[2024-01-03 10:15] VITALS: BP 105/64; PULSE 65; RESP 16; O2SAT 98
[2024-01-03 10:20] VITALS: BP 114/64; PULSE 61; RESP 14; O2SAT 98
[2024-01-03 10:35] VITALS: BP 112/61; PULSE 70; RESP 18; O2SAT 98
== END 2024-01-03 11:18 | disposition home or self-care (01) ==
PROVIDERS: PCP Physician Assistant; Visit Provider Surgery
PROC: (CPT 49505; principal; 2024-01-03 09:00)
DX: K40.90 Unilateral inguinal hernia, without obstruction or gangrene, not specified as recurrent (principal); K21.9 Gastro-esophageal reflux disease without esophagitis; I10 Essential (primary) hypertension; E11.9 Type 2 diabetes mellitus without complications; Z87.820 Personal history of traumatic brain injury; H53.8 Other visual disturbances; F12.90 Cannabis use, unspecified, uncomplicated; F14.90 Cocaine use, unspecified, uncomplicated; F10.90 Alcohol use, unspecified, uncomplicated; Z79.899 Other long term (current) drug therapy; Z88.0 Allergy status to penicillin; Z88.1 Allergy status to other antibiotic agents; Z87.891 Personal history of nicotine dependence
CPT/HCPCS: 49505; C1781; C9088; J2704; J2795; J3010; J3371

== ENCOUNTER → 2024-01-03 07:18 | Outpatient (BNV) | payer OTHER, SELFPAY | PROVIDERS: PCP Physician Assistant; Visit Provider Surgery | DX: K40.90 Unilateral inguinal hernia, without obstruction or gangrene, not specified as recurrent (principal) | CPT/HCPCS: 49505 ==

== ENCOUNTER 2024-01-13 15:03 | Outpatient (AMB) | payer OTHER, SELFPAY ==
--- NOTE | 2024-01-13 15:11 | A.OFFVIS_ITS ---
Intake Vital Signs 3 01/13/24 15:19 Height 5 ft 10 in Weight 192 lb BMI 27.5 BP 133/79 Blood Pressure Location Lt brachial Position Sitting Pulse 72 Intake Visit Reasons: S/P RIH w/mesh Intake Note: Patient is seen in office for post op assessment post repair of right inguinal hernia. Pt c/o: admits to sore, tender and bruise, had some night sweats and chills, no fever, req pain meds Op: 01/03/24 Emotional Disabilities Teacher Required: No Accompanied by: Family/Other Allergies Penicillins [PENICILLINS] Allergy (Severe, Verified 01/13/24 15:18) DIFFICULTY BREATHING penicillin V Allergy (Unknown, Verified 01/13/24 15:18) throat swlelling, anaphylaxis From Augmentin Allergy (Unknown, Uncoded 01/13/24 15:18) UNKNOWN HPI HPI Comments 2 History of Present Illness0 Details Patient returns 1 week following repair of a right inguinal hernia with mesh performed on 01/03/2024. He reports some swelling and pain in the incision. His bowels have been slow, moving every 3-4 days. He denies any nausea or vomiting. Did have some chills at night. He denies any redness or discharge from the incision. FOR[facility]LY [facility], [facility] Medical History (Updated 01/03/24 @ 09:11 by Kelley Artis MD) Screening for diabetes mellitus (DM) Knee joint cyst, right Rib pain on right side Lumbar radiculitis Allergic rhinitis Exposure to COVID-19 virus Screening for hypothyroidism Screening for STD (sexually transmitted disease) Screening for diabetes mellitus (DM) TBI (traumatic brain injury) Neurological symptoms Family history of diabetes mellitus Blurred vision Surgical History History of right inguinal hernia repair (01/03/24) Rupture of right patellar tendon Family History Father Hx of diabetes mellitus History of high blood pressure Mother No problems noted. Mother No problems noted. Social History Housing: House Alcohol intake: former Patient Tobacco Use Status: Former Tobacco user Quit Date: vapes Tobacco use type: Smokeless Tobacco e-Cigarette/Vaping Use: Never Used Second Hand Smoke Exposure: Yes Substance Use Type: Crack/Cocaine and Marijuana service: No Current occupational status: unemployed Current occupation: [employer] Current occupational exposures/hazards: No Cognitive needs: No Hearing needs: No Vision needs: Yes Physical Exam Vital Signs: Last Vital Signs Pulse 72 01/13/24 15:19 BP 133/79 01/13/24 15:19 BMI result Body Mass Index 27.5 Const General: no acute distress Nutritional Appearance: well nourished Orientation/consciousness: patient oriented x3 Resp Effort & Inspection: normal respiratory effort, no audible wheezes, no cough and no respiratory distress GI Other: Incision in the right groin with a normal healing ridge. No changes noted with Valsalva maneuvers. Testicles in scrotum within normal limits without hematoma or ecchymosis. Inspection: Yes normal to inspection Palpation (GI): Soft to palpation Abdomen image: 2 1. Incision is clean, dry, and intact without erythema or ecchymosis. Normal healing ridge noted around the incision. No changes with Valsalva maneuvers. Neuro General: patient oriented x3 Extrem General: No edema Assessment & Plan Assessment & Plan (1) Right inguinal hernia: Code(s): K40.90 - Unilateral inguinal hernia, without obstruction or gangrene, not specified as recurrent Plan 33-year-old male patient presenting 1 week following right inguinal hernia repair with mesh. His wounds are clean and intact without evidence of hernia recurrence or infection. I recommended stopping the ice and applying warm compresses. He has MiraLax at home and will take 1 cap full in 1 glass of water every day. I will refill his pain medication but he was also encouraged to try ibuprofen instead. He will follow-up in 1 month and should avoid lifting greater than 10 lb until then. Medications: Refilled 2 oxycodone Partial Fill upon patient request. 5 mg PO Q6H PRN 15 tabs 0RF pain (scale score 7-10) Coding Level of Care Code Global (72524) Diagnoses Right inguinal hernia K40.90
[2024-01-13 15:19] VITALS: BP 133/79; PULSE 72; BMI 27.5
== END 2024-01-13 15:26 | disposition home or self-care (01) ==
PROVIDERS: PCP Physician Assistant; Visit Provider Surgery
DX: K40.90 Unilateral inguinal hernia, without obstruction or gangrene, not specified as recurrent (principal)
CPT/HCPCS: 99024

== ENCOUNTER → 2024-01-13 15:03 | Outpatient (BNVA) | payer OTHER, SELFPAY | PROVIDERS: PCP Physician Assistant; Visit Provider Surgery | DX: K40.90 Unilateral inguinal hernia, without obstruction or gangrene, not specified as recurrent (principal) | CPT/HCPCS: 99212 ==

== ENCOUNTER 2024-02-15 09:06 | Outpatient (AMB) | payer OTHER, SELFPAY ==
[2024-02-15 09:07] VITALS: BP 132/83; PULSE 58; BMI 28.0
--- NOTE | 2024-02-15 09:07 | MHC.OFFVIS ---
Vital Signs 02/15/24 09:07 Height 5 ft 10 in Weight 195 lb BMI 28.0 BP 132/83 Blood Pressure Location Rt brachial Position Sitting Pulse 58 Intake Visit Reasons: one month S/P RIH w/mesh Intake Note: This patient presents for a one month follow-up status psot right inguinal hernia repair with mesh. Patient c/o; reports no complaints. Rim Buster Required: No Accompanied by: Spouse Allergies Penicillins [PENICILLINS] Allergy (Severe, Verified 02/15/24 09:16) DIFFICULTY BREATHING penicillin V Allergy (Unknown, Verified 02/15/24 09:16) throat swlelling, anaphylaxis From Augmentin Allergy (Unknown, Uncoded 02/15/24 09:16) UNKNOWN Medication List - Last Reconciled 02/15/24 by Endy Ramos MD No Known Home Meds HPI Comments Details: 33-year-old male patient status post repair of a right inguinal hernia with mesh on 01/03/2024. He tolerated the procedure well returns today 1 month following the repair. Denies any particular symptoms associated with the hernia repair. [facility] Medical History (Updated 01/03/24 @ 09:11 by Kelley Artis MD) Screening for diabetes mellitus (DM) Knee joint cyst, right Rib pain on right side Lumbar radiculitis Allergic rhinitis Exposure to COVID-19 virus Screening for hypothyroidism Screening for STD (sexually transmitted disease) Screening for diabetes mellitus (DM) TBI (traumatic brain injury) Neurological symptoms Family history of diabetes mellitus Blurred vision Surgical History History of right inguinal hernia repair (01/03/24) Rupture of right patellar tendon Family History Father Hx of diabetes mellitus History of high blood pressure Mother No problems noted. Mother No problems noted. Social History Housing: House Alcohol intake: former Patient Tobacco Use Status: Former Tobacco user Quit Date: vapes Tobacco use type: Smokeless Tobacco e-Cigarette/Vaping Use: Never Used Second Hand Smoke Exposure: Yes Substance Use Type: Crack/Cocaine and Marijuana service: No Current occupational status: unemployed Current occupation: [employer] Current occupational exposures/hazards: No Cognitive needs: No Hearing needs: No Vision needs: Yes Physical Exam Const General: comfortable Nutritional Appearance: well nourished Orientation/consciousness: patient oriented x3 Resp Effort & Inspection: normal respiratory effort GI Other: Well-healed incision in the right lower quadrant with a normal healing ridge. No hernia noted with Valsalva maneuvers. Minimal tenderness to deep palpation. Neuro General: patient oriented x3 Extrem Other: No edema Assessment & Plan Assessment & Plan (1) Right inguinal hernia: Code(s): K40.90 - Unilateral inguinal hernia, without obstruction or gangrene, not specified as recurrent Category: Surgical Plan 33-year-old male patient returning 1 month following repair of a right inguinal hernia with mesh. He tolerated the procedure well and his wounds are healing nicely without evidence of hernia recurrence or infection. May resume normal activity without restriction and should follow up as needed. Coding Level of Care Code Global (89345) Diagnoses Right inguinal hernia K40.90
== END 2024-02-15 09:16 | disposition home or self-care (01) ==
PROVIDERS: PCP Physician Assistant; Visit Provider Surgery
DX: K40.90 Unilateral inguinal hernia, without obstruction or gangrene, not specified as recurrent (principal)
CPT/HCPCS: 99024

== ENCOUNTER → 2024-02-15 09:06 | Outpatient (BNVA) | payer OTHER, SELFPAY | PROVIDERS: PCP Physician Assistant; Visit Provider Surgery | DX: Z09 Encounter for follow-up examination after completed treatment for conditions other than malignant neoplasm (principal); Z87.19 Personal history of other diseases of the digestive system | CPT/HCPCS: 99212 ==

== ENCOUNTER 2024-03-24 22:35 | Emergency (ER) | payer OTHER, SELFPAY ==
[2024-03-24 22:38] VITALS: BP 127/87; PULSE 71; RESP 18; TEMP 36.8; O2SAT 95; BMI 25.8
--- NOTE | 2024-03-24 22:45 | PC.NURSE ---
This RN cleaned wounds with NS. Wounds as identified in triage note. instructed to pt to wait in WR for a few minutes until a provider could be seen. Pt stated I'm good and left ED despite this RN attempting to request pt stay to be seen.
--- OUTSIDE RECORDS SUMMARY | 2024-03-24 22:50 | XMS_ITS | Continuity of Care Document ---
Author Organization [facility] [place] [address] Address [address] [place] [id number] Care Team Providers Care Bioinformatics Associate Name Role Phone Chele Burton Primary Care Physician [phone] Encounter [facility] ACCT R [id number] Date(s): 05/02/22 - 05/03/[address] [id number]- Discharge Disposition: A-D/C Walkout Attending Physician: Not on Staff, Attending MD Admitting Physician: Not on Staff, Admitting MD Referring Physician: Not on Staff, Referring MD Allergies, Adverse Reactions, Alerts Substance Reaction Severity Status penicillins Active Medications ondansetron 4 mg oral tablet, disintegrating 1 tablet = 4 mg, By Mouth, Every 6 hours, PRN as needed for nausea/vomiting, # 12 tablet, 0 Refills, Maintenance, 02/01/22 10:46:00 EDT, DIS Tablet, [id number], Partial fill upon patient request if the prescription is for a schedule II opioid... Start Date: 02/01/22 Stop Date: 02/04/22 Status: Ordered Vital Signs Most recent to oldest [Reference Range]: 1 2 Weight 86.5 kg (05/02/22 7:15 PM) 86.5 kg (05/02/22 6:45 PM) Oxygen Saturation [94-100 %] 96 % (05/02/22 9:09 PM) 99 % (05/02/22 6:45 PM) Pulse Rate [55-90 bpm] 73 bpm (05/02/22 9:09 PM) 68 bpm (05/02/22 6:45 PM) Blood Pressure [90-138/55-84 mm Hg] 121/ 86mm Hg (05/02/22 9:09 PM) 107/56mm Hg (05/02/22 6:45 PM) Respiratory Rate [16-30 br/min] 20 br/mi n (05/02/22 6:45 PM) Temperature [96.8-100.4 DegF] 99.4 DegF (05/02/22 9:09 PM) 98.5 DegF (05/02/22 6:45 PM) Liters per Minute 0 L/min (05/02/22 6:45 PM) Mode of Delivery (Oxygen) Room air (05/02/22 6:45 PM) Blood pressure sites Arm, right (05/02/22 9:09 PM) Arm, right (05/02/22 6:45 PM) Temperature Route Oral (05/02/22 9:09 PM) Oral (05/02/22 6:45 PM) Dry Weight 86.5 kg (05/02/22 7:15 PM) 86.5 kg (05/02/22 6:45 PM) Weight Obtained Via Patient/family state d (05/02/22 6:45 PM) Dry Weight Obtained Via Patient/family s tated (05/02/22 6:45 PM) Social History Social History Type Response Tobacco Use: 4 or less cigar ettes(less than 1/4 pack)/day in last 30 days. Sex
--- OUTSIDE RECORDS SUMMARY | 2024-03-24 22:50 | XMS_ITS | Continuity of Care Document ---
Author Organization [facility] ter Address [address] [place] [address]- Care Team Providers Care Bomb Technician Name Role Phone Chele Burton Primary Care Physician Encounter [facility] Date(s): 11/09/23 - 11/09/[address] [address] Discharge Disposition: A-D/C Home Attending Physician: Dennis Tran MD Admitting Physician: Dennis Tran MD Referring Physician: Dennis Tran MD Allergies, Adverse Reactions, Alerts Substance Reaction Severity Status penicillins anaphylaxis Active Immunizations Given and Recorded Vaccine Date Status Refusal Reason tetanus/diphtheria/pertussis, acel(Tdap) 11/24/22 Given Medications oxyCODONE 5 mg oral tablet 5 mg, 1, tablet, By Mouth, Every 4 hours, PRN, may give less in 5 mg increments- hold for sedation,# 24 tablet, Refills 0, Tot. Refills 0, Acute 11/13/23 17:32:00 EST, Pain , Severe, 11/09/23 17:31:00 EST, Route to Pharmacy Electronically, [facility]... Start Date: 11/09/23 Stop Date: 11/13/23 Status: Ordered sulfamethoxazole-trimethoprim 800 mg-160 mg oral tablet = 160 mg, By Mouth, 2 times a day, for 14 days, # 28 capsule, 0 Refills, Acute 11/23/23 17:30:00 EST, 11/09/23 17:30:00 EST, Tablet, [facility], 160 mg By Mouth 2 times a day,x14 days, 177.8, cm, 11/09/23 14:57:00 EST, Height, 81, kg, 01... Start Date: 11/09/23 Stop Date: 11/23/23 Status: Ordered Procedures Procedure Date Related Diagnosis Body Site Status Incision and drainage, deep abscess, bursa, or hematoma, thigh or knee region 1 11/09/23 Completed 1excision of scar- debridement of sinus down to suture/ bone tunnels (and removal of same Results Orders for Microbiology Reports Name Date AFB Culture w/ AFB Smear, Nonrespiratory (ACID FAST CULT,NON-RESP) 11/09/23 Anaerobic Culture (ANAEROBIC CULTURE) Fungal Culture, Nonrespiratory (FUNGAL C ULT,NON-RESPIRATORY) 11/09/23 Tissue Culture w/ Gram Smear (TISSUE/BIO PSY CULT.) 11/09/23 Microbiology Reports TEST:Anaerobic Culture STATUS:Unauthenticated BODY SITE: SOURCE:TISSUE1 COLLECTED DATE/TIME:11/09/23 4:00 PM Anaerobic Culture SPECIMEN DESCRIPTION : TISSUE RT KNEE SPECIAL REQUESTS : NONE REPORT STATUS : PRELIMINARY REPORT TEST:Tissue/Biopsy Culture STATUS:Unauthenticated BODY SITE: SOURCE:KNEE R COLLECTED DATE/TIME:11/09/23 4:00 PM Tissue/Biopsy Culture SPECIMEN DESCRIPTION : KNEE RIGHT SPECIAL REQUESTS : NONE GRAM STAIN : 1+ WHITE BLOOD CELLS NO ORGANISMS SEEN REPORT STATUS : PRELIMINARY REPORT TEST:Fungal Culture, Non-Respiratory STATUS:Unauthenticated BODY SITE: SOURCE:TISSUE1 COLLECTED DATE/TIME:11/09/23 4:00 PM Fungal Culture, Non-Respiratory SPECIMEN DESCRIPTION : TISSUE RT KNEE SPECIAL REQUESTS : NONE REPORT STATUS : PRELIMINARY REPORT TEST:AFB Culture w/AFB Smear, Non-Respiratory STATUS:Unauthenticated BODY SITE: SOURCE:TISSUE1 COLLECTED DATE/TIME:11/09/23 4:00 PM AFB Culture w/AFB Smear, Non-Respiratory SPECIMEN DESCRIPTION : TISSUE RT KNEE SPECIAL REQUESTS : NONE REPORT STATUS : PRELIMINARY REPORT Vital Signs Most recent to oldest [Reference Range]: 1 2 3 Height 177.80 cm (11/09/23 2:57 PM) 177.80 cm (11/05/23 5:18 PM) Weight 81.82 kg (11/09/23 2:57 PM) 81.82 kg (11/05/23 5:18 PM) Oxygen Saturation [94-100 %] 100 % (11/09/23 6:15 PM) 99 % (11/09/23 6:00 PM) 98 % (11/09/23 5:45 PM) Pulse Rate [55-90 bpm] 60 bpm (11/09/23 2:57 PM) Body Mass Index [18.5-24.99 kg/m2] 25.88 kg/m2 *H* (11/09/23 2:57 PM) 25.88 kg/m2 *H* (11/05/23 5:18 PM) Blood Pressure [90-138/55-84 mm Hg] 114/65mm Hg (11/09/23 6:15 PM) 113/76mm Hg (11/09/23 6:00 PM) 114/67mm Hg (11/09/23 5:45 PM) Respiratory Rate [16-30 br/min] 14 br/min *L* (11/09/23 6:15 PM) 16 br/min (11/09/23 6:00 PM) 15 br/min *L* (11/09/23 5:45 PM) Temperature [96.8-100.4 DegF] 97.8 DegF (11/09/23 5:30 PM) 97.6 DegF (11/09/23 2:57 PM) Mode of Delivery (Oxygen) Room air (11/09/23 6:15 PM) Room air (11/09/23 5:30 PM) Room air (11/09/23 2:57 PM) Blood pressure sites Arm, right (11/09/23 5:30 PM) Arm, right (11/09/23 2:57 PM) Temperature Route Temporal (11/09/23 5:30 PM) Temporal (11/09/23 2:57 PM) Dry Weight 81 kg (11/09/23 2:57 PM) 81.82 kg (11/05/23 5:18 PM) Dry Weight Obtained Via Standing scale (11/09/23 2:57 PM) Patient/family stated (11/05/23 5:18 PM) Social History Social History Type Response Tobacco Use: 4 or less cigar ettes(less than 1/4 pack)/day in last 30 days. Sex Note * Alana Pandya RN: PERFORM Event Display: Discharge/Transfer Note Hospital Authored Date: [id number] Nursing Discharge Note Entered On: 11/09/2023 18:38 EST Performed On: 11/09/2023 18:38 EST by Alana Pandya RN Nursing Discharge Note 2 Discharge Time : 11/09/2023 18:34 EST Discharge Level of Care at Discharge : Home/Senior Care/Foster Care Patient Left Unit Via : Wheelchair Patient Accompanied Off Unit with : Significant other DC Instructions Provided & Signed by Pt : Yes Patient Understands D/C Instructions : Yes Patient Instructions Discharge Signed : Yes Did Pt have Specialty Bed or Wound Vac : No Alana Pandya RN - 11/09/2023 18:38 EST * Eva Gunn RN: PERFORM Event Display: Patient Education/Instruction Authored Date: [id number] Inpatient Adult Discharge Instructions [address] [address] Name: WHITNEY JIMÉNEZ : 1990 Visit: 11/09/2023 13:30:00 Current Date: 11/09/2023 17:52 Account: [id number] Inpatient Adult Discharge Instructions We would like to thank you for allowing us to assist you with your healthcare needs. The following includes patient education materials and information regarding your injury/illness. Our entire staffstrives to provide an excellent experience for our patients and their families. PLEASE ENSURE YOU FOLLOW-UP PER THE INSTRUCTIONS BELOW! ?? YOUR OPINION IS IMPORTANT TO US! Please complete the survey you may receive by mail or email. Your feedback will be used to make improvements to the healthcare experiences of our patients and their families. Surveys are administered by [employer] ?? If further treatment with your primary care physician or another doctor is recommended, it is important for you to keep the appointment. Call your primary care physician or return to the Emergency Department immediately if your condition worsens, fails to improve, or new symptoms develop. If you need to find a doctor, you can call [email or web address] for a referral at [phone] or toll free at [phone] or log in to [email or web address].. ?? [facility], in keeping with [facility] guidance, no longer requires face masks for staff, patientsor visitors in most situations. Similiar to time spent indoors at other locations, there is the chance that you were exposed to repiratory viruses during your time with us (such as flu or COVID-19). If you develop symptoms concerning for a viral respiratory infection, please seek testing (and treatment if indicated) from your medical provider or home test kit. ?? You can view and manage your care through the patient portal or by using a health care tyesha of your choosing. [employer] is a website that allows you to securely view your medical information including your hospital discharge summary, office visit summaries, medications and follow-up visits. You can also request appointments, renew medications, and request access to your medical information using a health care tyesha of your choosing, or just ask a question. You can enroll at [email or web address] or register during your next office visit. You have been discharged from [facility], Patient Care Unit: PANU. If you have any questions regarding these instructions after you leave, please call us and we will be happy to assist you. [facility] Your Care Team Attending Physician Dennis Tran MD Discharging Providers Dennis Tran MD Reason for Admission LEFT KNEE INFECTION Your Diagnosis Traumatic rupture of right patellar tendon Skin infection of right knee Tests Performed Below is a partial list of the tests performed during your hospitalization. You may have had other tests and procedures not included in this list. Please discuss all test results with your provider. Primary Care Provider Chele Burton Advance Directive Health Care Proxy on File No Discharge Vitals Temperature: 97.8 DegF Height: 177.8 cm Pulse Rate: 60 bpm Weight: 81.82 kg Respiratory Rate: 16 br/min Body Mass Index:??25.88 kg/m2??High Systolic Blood Pressure: 102 mm Hg Body surface area: 2.01 Diastolic Blood Pressure:??90 mm Hg??High ?? Oxygen Saturation: 99 % ?? Studies Pending All tests and labs ordered during this hospital stay have been completed unless listed below. Please discuss all pending results with your provider listed above in these instructions. ?? No incomplete studies found What to do next Instructions From Your Doctor Discharge Orders Keep dressing on for 2-3 days then change with fresh gauze as needed. You may shower after the first dressing change, and after each dressing change after that. Wear knee immobilizer for ALL walking. You may take it of in bed or when showering. Begin range of motion exercises after one week IF there is no drainage. Call office to schedule a follow up appointment. Scheduled Follow-Up Appointments supervisor rice milling a over the counter??stool softener, Colace, at the pharmacy to prevent constipation. 975 mg of Tylenol was given in recovery at 5:30pm. Next dose may be taken at 11:30pm. DO NO exceed 3,000 mg or 3gm in 24 hours. You Need to Schedule the Following Appointments Follow Up with??Dennis Tran When:??Within 1 to 2 weeks Where: [address] [facility] [address], [address] [facility] [place] [address]- Business (1) Follow Up with??Chele Aquino When:??In 0 days Where: [address] [place] [address]- Business (1) Discharge Medications WHITNEY JIMÉNEZ :1990 Visit Date:11/09/2023 Medications: Please continue your medications until treatment is completed or stopped by your provider. Medications not listed below should be discontinued. Discuss any questions related to medications with your provider. What How Much When Instructions Next Dose New Oxycodone (oxyCODONE 5 mg oral tablet) 1 tab(s) Oral Every 4 hours as needed for Pain , Severe may give less in 5 mg increments- hold for sedation ?? Pickup at [facility] 3 10 mg given in recovery at 5:30 pm. Next dose may be taken at 9:30pm. 0pmNew Sulfamethoxazole/ Trimethoprim (sulfamethoxazole-trimethoprim 800 mg-160 mg oral tablet) 160 Milligram Oral Twice a day Duration: 14 Days Pickup at [facility] 3 Resume tomorrow Pharmacy Information [facility] 3: [address] [place], [place] [id number] [phone] Test Results Below is a partial list of the most recent Laboratory test results done prior to this discharge. You may have had other tests and procedures not included in this list. Please discuss all test resultswith your provider. Allergies (NKA means No Known Allergies) penicillins??(anaphylaxis) Problems No qualifying data available Education Materials Below is the list of Educational Leaflet Providered with your Discharge Instructions. Surgery Medical Daystay Surgical Overnight Discharge Instructions?? Valuables and Belongings I fully understand and agree that [facility] accepts no responsibility for all my personal property including clothing, toilet articles, radios, jewelry, dentures, hearing aids, rings, money, or any other property that is in my possession or is brought to me after admission. I understand certain valuables may be placed in a hospital safe for a short period of time. I understand that the hospital is not liable for loss or damage due to accident, fire, or other natural occurrence while said property is in the safe. I accept full responsibility for any personal property that I keep with me, and will not hold the hospital responsible in case of loss or disappearance. I acknowledge that i have been encouraged to send valuables and belongings home. ?? Date for Pt to Sign Valuables/Belongings: 11/09/23 15:10:00 ?? Valuables & Belongings ?? Clothes Electronic devices Jewelry Monetary Items Personal devices Miscellaneous Medications (Valuables) Valuables at Bedside Pants, Shirt, Shoes, Undergarments ? Valuables Sent Home ? Valuables Sent to Security ? Other Discharge Information ? Pulmonary Rehab Status?? Pulmonary Rehab Discharge Status?? Respiratory Rate: 16 br/min ? Common Emergency Awareness Tips IS IT A STROKE? Act FAST and Check for these signs: FACE Does the face look uneven? ARM Does one arm drift down? SPEECH Does their speech sound strange? TIME Call at any sign of stroke ?? Heart Attack Signs Chest discomfort: Most heart attacks involve discomfort in the center of the chest and lasts more than a few minutes, or goes away and comes back. It can feel like uncomfortable pressure, squeezing, fullness or pain. Discomfort in upper body: Symptoms can include pain or discomfort in one or both arms, back, neck, jaw or stomach. Shortness of breath: With or without discomfort. Other signs: Breaking out in a cold sweat, nausea, or lightheaded. Remember, MINUTES DO MATTER. If you experience any of these heart attack warning signs, call to get immediate medical attention! ?? Smoking can increase your chances of developing chronic health problems and can cause harmful effects to other family members in your house. If you smoke, you are strongly encouraged to quit. Please call [facility] at [phone] or [phone] ([phone]) or log in to [email or web address] for referrals to smoking cessation programs. ?? 389 Suicide & Crisis Lifeline is available 03/05 if you or someone you know needs to find a reason to keep living. By calling 110 you'll be connected to a skilled, trained counselor at a crisis center in your area. INPATIENT DISCHARGE INSTRUCTIONS SIGNATURE ISABEL JIMÉNEZVIKIWHITNEY Location:[facility] Registration Date and Time:11/09/2023 13:30 EST Primary Care Physician: Chele Burton, Attending Physician: Dennis Tran MD, I WHITNEY JIMÉNEZ, have received the above patient education materials/instructions and have verbalized understanding. If ambulance or transport services are being used I further acknowledge beinggiven a choice of service. ?? If you need to contact me, please call me at this number: . Patient/Driver Guide Name: Patient/Driver Guide Signature: Relationship to Patient: Witness Name/Signature: Date: * Eva Gunn RN: PERFORM, SIGN, VERIFY Event Display: Patient Education Handout Authored Date: [id number] * Eva Gunn RN: PERFORM Event Display: Patient Education Leaflets Authored Date: [id number] Surgery Medical Daystay Surgical Overnight Discharge Instructions ?? 295 Medical Daystay/Surgical Overnight Discharge Instructions ? Since your coordination and judgment may be altered by medication and/or anesthesia, a responsible adult must drive you home from the hospital. ? If you have received medication for pain or sedation while under our care, you should not drive, operate machinery, drink alcohol, or sign any legal documents for 24 hours.?? You should have someone with you at home tonight. ? Remain at home the day of discharge.?? You may be up and about unless otherwise instructed by your physician. ? You may resume your daily prescription medication schedule.?? Any depressant medication should be avoided for 24 hours unless otherwise instructed by your surgeon or anesthesiologist. ? Call your physician for a follow-up appointment.? If you experience unusual or severe pain not relied by your pain medication, excessive bleedingor drainage, persistent nausea and vomiting, excessive swelling or redness, foul odor from incisionsite or fever over 100.6F, you need to call your physician. ? A follow-up phone call by a nurse will be made the day after your procedure.?? If you have stayed with us over night, you will not be receiving a follow-up phone call. ? Nausea and vomiting are a common side effect of prescription pain medication.?? We recommend that pills are not taken on an empty stomach.?? While taking any prescription pain medication you should not drive or drink alcohol. ? Patient Care team information Care Team Personnel Name: Alisha Roy RN Position: ANN MARIE MADDOX RN Member Role: Primary Care Nurse Name: Chele Burton Position: Reference Physician Member Role: PCP Address: Address: [address] [place] [address]- Name: Everarod Stack RN Position: Jerry RN Member Role: Primary Care Nurse Care Team Related Persons Name: ELAINE ALEXIS Address: home [address] [place] [address] Name: CHASTITY LUCIO Address: home [address] [place] [address]
--- OUTSIDE RECORDS SUMMARY | 2024-03-24 22:50 | XMS_ITS | Continuity of Care Document ---
Author Organization [facility] ter Address [address] [place] [address]- Care Team Providers Care Uppers Edge Burnisher Name Role Phone Lesser Vladislav RAMSEY Primary Care Physician [phone] Encounter [facility] [id number] Date(s): 08/23/23 - 08/24/[address] [address]- Discharge Disposition: A-D/C Walkout Attending Physician: Not on Staff, Attending MD Admitting Physician: Not on Staff, Admitting MD Referring Physician: Not on Staff, Referring MD Allergies, Adverse Reactions, Alerts Substance Reaction Severity Status penicillins Active traMADol Active Immunizations Given and Recorded Vaccine Date Status Refusal Reason tetanus/diphtheria/pertussis, acel(Tdap) 11/24/22 Given Medications doxycycline monohydrate 100 mg oral tablet 1 tablet = 100 mg, By Mouth, 2 times a day, for 10 days, # 20 tablet, 0 Refills, Acute 08/26/23 8:58:00 EST, 08/16/23 8:58:00 EST, Tablet, [id number], Partial fill upon patient request if theprescription is for a schedule II opioid drug., 178... Start Date: 08/16/23 Stop Date: 08/26/23 Status: Ordered Flexeril 10 mg oral tablet 10 mg, By Mouth, Daily, Refills 0, Maintenance, 08/16/23 8:48:00 EST, Partial fill upon patient request if the prescription is for a schedule II opioid drug. Start Date: 08/16/23 Status: Ordered gabapentin 400 mg oral capsule 400 mg, 1, capsule, By Mouth, 3 times a day, # 15 capsule, Refills 0, Maintenance, 06/26/23 2:04:00EDT, Partial fill upon patient request if the prescription is for a schedule II opioid drug. Start Date: 06/26/23 Status: Ordered lamotrigine 200 mg oral tablet, extended release 1 tablet = 200 mg, By Mouth, Daily, # 30 tablet, 0 Refills, Maintenance, 06/26/23 2:05:00 EDT, ER Tablet, Partial fill upon patient request if the prescription is for a schedule II opioid drug. Start Date: 06/26/23 Status: Ordered Omeprazole = 20 mg, By Mouth, Daily, 0 Refills, Maintenance, 08/16/23 8:49:00 EST, Partial fill upon patient request if the prescription is for a schedule II opioid drug. Start Date: 08/16/23 Status: Ordered Suboxone 8 mg-2 mg Sublingual Film 3 film, Sublingual, Daily, dissolve under the tongue, 0 Refills, Maintenance, 06/26/23 2:04:00 EDT,Film, Partial fill upon patient request if the prescription is for a schedule II opioid drug. Start Date: 06/26/23 Status: Ordered Wellbutrin XL 300 mg/24 hours oral tablet, extended release 1 tablet = 300 mg, By Mouth, Every 24 hours, 0 Refills, Maintenance, 06/26/23 2:04:00 EDT, Partial fill upon patient request if the prescription is for a schedule II opioid drug. Start Date: 06/26/23 Status: Ordered Vital Signs Most recent to oldest [Reference Range]: 1 2 3 Height 178 cm (08/23/23 10:48 PM) Weight 78.9 kg (08/23/23 10:48 PM) Oxygen Saturation [94-100 %] 100 % (08/24/23 2:49 AM) 100 % (08/24/23 12:32 AM) 100 % (08/23/23 10:48 PM) Pulse Rate [55-90 bpm] 72 bpm (08/24/23 2:49 AM) 74 bpm (08/24/23 12:32 AM) 71 bpm (08/23/23 10:48 PM) Body Mass Index [18.5-24.99 kg/m2] 24.9 kg/m2 (08/23/23 10:48 PM) Blood Pressure [90-138/55-84 mm Hg] 135/75mm Hg (08/24/23 2:49 AM) 121/73mm Hg (08/24/23 12:32 AM) 141/79mm Hg *H* (08/23/23 10:48 PM) Respiratory Rate [16-30 br/min] 16 br/min (08/23/23 10:48 PM) 18 br/min (08/23/23 10:42 PM) Temperature [96.8-100.4 DegF] 97.8 DegF (08/24/23 2:49 AM) 98.1 DegF (08/24/23 12:32 AM) 98.3 DegF (08/23/23 10:48 PM) Mode of Delivery (Oxygen) Room air (08/23/23 10:48 PM) Room air (08/23/23 10:42 PM) Blood pressure sites Arm, left (08/24/23 2:49 AM) Arm, left (08/24/23 12:32 AM) Arm, left (08/23/23 10:48 PM) Temperature Route Oral (08/24/23 2:49 AM) Oral (08/24/23 12:32 AM) Oral (08/23/23 10:48 PM) Dry Weight 78.9 kg (08/23/23 10:48 PM) Weight Obtained Via Standing scale (08/23/23 10:48 PM) Dry Weight Obtained Via Standing scale (08/23/23 10:48 PM) Social History Social History Type Response Tobacco Use: 4 or less cigar ettes(less than 1/4 pack)/day in last 30 days. Sex Patient Care team information Care Team Personnel Name: Alisha Roy RN Position: [facility] RN Member Role: Primary Care Nurse Name: Vladislav Anguiano MD Position: S Physician - Primary Care Member Role: PCP Address: Address: [address] [place] [address] [facility] [place], [place] [address] Name: Everardo Stack RN Position: S RN Member Role: Primary Care Nurse Care Team Related Persons Name: CHASTITY LUCIO Address: home [address] [place] [address] Name: SEAN LUCIO Address: [address] [place] [address]
== END 2024-03-24 22:50 | disposition left against medical advice (07) ==
LOC: HO.ED 22:49
PROVIDERS: Emergency Provider Emergency Medicine
DX: M79.641 Pain in right hand (principal)
CPT/HCPCS: 99281

== ENCOUNTER 2024-05-08 13:45 | Outpatient (AMB) | payer OTHER, SELFPAY ==
--- NOTE | 2024-05-08 14:45 | AM.OFFWIN_ITS ---
Intake Vital Signs 05/08/24 14:46 Height 5 ft 10 in Weight 187 lb BMI 26.8 BP 110/70 Blood Pressure Location Rt brachial Position Sitting Pulse 53 Pulse Source Pulse Oximeter Temp 98.3 F Temp Source Oral Pulse Oximetry (%) 98 Oxygen Delivery Method Room Air Intake Visit Reasons: Vomiting blood/stomach pain Intake Note: pt here c/o vomiting blood, passing blood in stool and abdominal pain. Started 2 days ago Patient Tobacco Use Status: Former Tobacco user Allergies Penicillins [PENICILLINS] Allergy (Severe, Verified 05/08/24 14:46) DIFFICULTY BREATHING penicillin V Allergy (Unknown, Verified 05/08/24 14:46) throat swlelling, anaphylaxis From Augmentin Allergy (Unknown, Uncoded 05/08/24 14:46) UNKNOWN Do you need a note to return to daycare/school/sports/work: Yes HPI Vomiting blood/stomach pain HPI Details This note is constructed using voice recognition software. While every effort has been made to ensure accuracy, metal worker errors may have been included. The patient is a 34 year old male who presents to the clinic today with upper and lower GI bleeding x2 episodes. He notes that he has had this in the past and it was associated with excessive EtOH consumption. He does continue to drink regularly however he had stopped very recently and then developed 2 episodes of bright red blood per rectum and vomiting. He reports inability to keep food in. No fever, chills. Does report widespread abdominal discomfort. [facility] Medical History Screening for diabetes mellitus (DM) Knee joint cyst, right Rib pain on right side Lumbar radiculitis Allergic rhinitis Exposure to COVID-19 virus Screening for hypothyroidism Screening for STD (sexually transmitted disease) Screening for diabetes mellitus (DM) TBI (traumatic brain injury) Neurological symptoms Family history of diabetes mellitus Blurred vision Surgical History History of right inguinal hernia repair (01/03/24) Rupture of right patellar tendon Family History Father Hx of diabetes mellitus History of high blood pressure Mother No problems noted. Mother No problems noted. 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 Current occupational exposures/hazards: No Cognitive needs: No Hearing needs: No Vision needs: Yes Review of Systems Const All systems reviewed & are unremarkable except as noted in HPI and below Physical Exam Vital Signs: Last Vital Signs Temp 98.3 F 05/08/24 14:46 Pulse 53 05/08/24 14:46 BP 110/70 05/08/24 14:46 Pulse Ox 98 05/08/24 14:46 Oxygen Delivery Method Room Air 05/08/24 14:46 BMI result Body Mass Index 26.8 Const General: cooperative, healthy appearing, comfortable, no acute distress and alert Orientation/consciousness: patient oriented x3 Limitations: no limitations Resp Effort & Inspection: normal respiratory effort and able to speak in complete sentences Auscultation: clear to auscultation bilaterally Cardio Jugular venous distension: no JVD Palpation: normal PMI Rate: regular rate Heart sounds: S1 normal heart sound present, S2 normal heart sound present, no click, no gallops, no murmurs and no rubs GI Inspection: Yes normal to inspection Palpation (GI): Soft to palpation and nontender Percussion: Yes normal to percussion Auscultation: normal bowel sounds Skin General skin exam: no rashes or lesions noted, elasticity normal and turgor normal Neuro General: patient oriented x3 Psych Appearance: grossly normal Mental Status: mental status grossly normal Speech and movement: Normal speech and movement present Affect: normal affect Assessment & Plan Assessment & Plan (1) GI bleed: Code(s): K92.2 - Gastrointestinal hemorrhage, unspecified Qualifiers: GI bleed type/associated pathology: gastrointestinal hemorrhage with hematemesis Qualified Code(s): K92.0 - Hematemesis Plan: Advised evaluation in the emergency room as we are unable to treat GI bleeding in walk-in capacity. It is likely that he will require both upper and lower endoscopy for further evaluation given bleeding coming from both locations. Advised smoking cessation and ETOH cessation as these may contribute to and worsen his symptoms. Patient agrees to be seen in the emergency room. Provided with letter to remain out from school for today. Plan See above for full details and plan. Coding Level of Care Code Est Pt Level 4 (10227) Diagnoses Gastrointestinal hemorrhage with hematemesis K92.0 GI bleed type/associated pathology: gastrointestinal hemorrhage with hematemesis
[2024-05-08 14:46] VITALS: BP 110/70; PULSE 53; TEMP 36.8; O2SAT 98; BMI 26.8
== END 2024-05-08 15:20 | disposition home or self-care (01) ==
PROVIDERS: PCP Physician Assistant; Visit Provider Registered Nurse
DX: K92.0 Hematemesis (principal)
CPT/HCPCS: 99214

== ENCOUNTER 2024-08-03 08:42 | Outpatient (AMB) | payer OTHER, SELFPAY ==
[2024-08-03 09:00] VITALS: BP 136/66; PULSE 70; O2SAT 97; BMI 27.1
--- NOTE | 2024-08-03 09:00 | MHC.PC.OV ---
Vital Signs 08/03/24 09:00 Height 5 ft 10 in Weight 189 lb BMI 27.1 BP 136/66 Blood Pressure Location Lt brachial Position Sitting Pulse 70 Pulse Source Pulse Oximeter Pulse Oximetry (%) 97 Oxygen Delivery Method Room Air Intake Visit Reasons: Hernia Intake Note: Patient is here to follow up on Hernia. Pt decline flu shot today. 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 Patient underwent right inguinal hernia surgery in December of 2023 reports he still has some right inguinal pain. He did receive a mesh and does report there is some hardness to palpation in the area of the surgical site. Otherwise denies any urination or defecation issues. He also reports having some upper GI symptoms including reflux and often vomits in the morning. He has been taking omeprazole though he still feels the same. He does report getting an endoscopy at [facility] in told he did not have any gastritis Also then mentioned he has been having some difficulty with his mental health as he has been having low moods and crying a lot. He is interested in getting back into a mental health therapist and eventually a psychiatrist. Was on multiple mental health medications in the past including Seroquel, mirtazapine, clonidine and clonazepam. He is unsure of his psychiatric diagnoses. [facility] Medical History (Updated 08/03/24 @ 09:29 by Chele Aquino PA-C) Screening for diabetes mellitus (DM) Knee joint cyst, right Rib pain on right side Lumbar radiculitis Allergic rhinitis Exposure to COVID-19 virus Screening for hypothyroidism Screening for STD (sexually transmitted disease) Screening for diabetes mellitus (DM) TBI (traumatic brain injury) Neurological symptoms Family history of diabetes mellitus Blurred vision Surgical History History of right knee surgery History of right inguinal hernia repair (01/03/24) Rupture of right patellar tendon Family History Father Hx of diabetes mellitus History of high blood pressure Mother No problems noted. Mother No problems noted. Social History Housing: House Alcohol intake: former Patient Tobacco Use Status: Former Tobacco user e-Cigarette/Vaping Use: Former Use Second Hand Smoke Exposure: Yes Substance Use Type: Crack/Cocaine and Marijuana service: No Current occupational status: unemployed Current occupation: [employer] Current occupational exposures/hazards: No Cognitive needs: No Hearing needs: No Vision needs: Yes Questionnaire Thrive Questionnaire Date Thrive assessed: 11/15/23 ETTA-7 AMB Questionnaire ETTA-7 Date ETTA - 7 assessed: 11/15/23 Source: Developed by Drs. Nicholas Servin, Anny Ramon, Gerhard Bennett and colleagues, with an educational mercedes from [employer]. Review of Systems Const Denies headache(s) Eyes Denies loss of vision ENT Denies vertigo, Denies dizziness, Denies headache(s) and Denies sore throat Card Denies chest pain, Denies leg edema and Denies lightheadedness Resp Denies cough, Denies hemoptysis and Denies wheezing GI Denies abdominal pain, Denies melena, Denies constipation, Denies diarrhea and Denies vomiting Denies dysuria, Denies urinary frequency and Denies urinary urgency Musc Denies arthralgias, Denies joint swelling, Denies numbness and Denies tingling Neuro Denies Abnormal speech present, Denies behavioral changes, Denies vertigo, Denies dizziness, Denies headache(s), Denies loss of vision, Denies memory loss, Denies numbness and Denies tingling Psych Denies anxiety, Denies behavioral changes, Denies depression, Denies memory loss and Denies panic attacks Barrett/Lymph Denies easy bleeding and Denies easy bruising Aller/Immun Denies wheezing Physical exam (Primary Care) Vital Signs: Last Vital Signs Pulse 70 08/03/24 09:00 BP 136/66 08/03/24 09:00 Pulse Ox 97 08/03/24 09:00 Oxygen Delivery Method Room Air 08/03/24 09:00 BMI result Body Mass Index 27.1 Tobacco/Smoking Status: Tobacco use Status Tobacco use date assessed 08/03/24 08/03/24 09:05 Patient Tobacco Use Status Former Tobacco user 08/03/24 09:05 Tobacco use type 08/03/24 09:05 e-Cigarette/Vaping Use Former Use 08/03/24 09:05 Thrive Assessment: Date of Thrive Assessment Date Thrive assessed 11/15/23 08/03/24 09:05 Const General: healthy appearing, no acute distress, alert and awake Nutritional Appearance: well nourished Orientation/consciousness: oriented to person, oriented to place and oriented to time HENMT Ears: TM's normal bilaterally General nose exam: Normal nasal mucous membranes and turbinates present Eyes Conjunctivae: conjunctivae normal Sclerae: sclerae normal Pupils: Equal, round and reactive pupils present Neck Neck: Yes no lymphadenopathy and Yes no JVD Thyroid: Thyroid normal Carotids: no bruits Resp Effort & Inspection: normal respiratory effort and not tachypneic Auscultation: no crackles, no rales, no rhonchi and no wheezes Cardio Rate: regular rate Rhythm: regular rhythm Heart sounds: no murmurs and normal S1 and S2 GI Palpation (GI): Soft to palpation, nontender, no hepatomegaly and no splenomegaly Auscultation: normal bowel sounds Abdomen image: 1. SOME TENDERNESS TO PALPATION IN THE RIGHT INGUINAL REGION. NO PALPABLE LUMPS Skin General skin exam: no rashes or lesions noted and dry skin Neuro General: oriented to person, oriented to place and oriented to time Cranial nerves: Yes Equal, round and reactive pupils present Speech: No Abnormal speech present Gait exam (Neuro): Normal gait present Motor exam (neuro): no tremor noted Extrem Right upper extremity: full ROM Left upper extremity: full ROM Right lower extremity: full ROM; no edema Left lower extremity: full ROM; no edema Psych Mental Status: mental status grossly normal Speech and movement: Normal speech and movement present Affect: normal affect Attitude: cooperative Thought process: Normal thought process present Coding Level of Care Code Est Pt Level 4 (17806) Diagnoses MDD (major depressive disorder), recurrent episode, moderate F33.1 Right inguinal hernia K40.90 Assessment & Plan Assessment & Plan (1) MDD (major depressive disorder), recurrent episode, moderate: Code(s): F33.1 - Major depressive disorder, recurrent, moderate Category: Medical Plan: Patient continues to suffer with what seems to be depression. Will seeing a mental health therapist and a psychiatrist in the past. Was on multiple mental health medications in the past. Did struggle with tobacco and alcohol use disorder as well. He is interested in restarting with a mental health therapist and starting medication again. He reports cyclobenzaprine has helped him with his mental health Will try to set him with cognitive behavioral therapy and eventually psychiatrist (2) Right inguinal hernia: Code(s): K40.90 - Unilateral inguinal hernia, without obstruction or gangrene, not specified as recurrent Category: Surgical Plan: Patient reporting pain and discomfort in his right groin area. Did have right hernia surgery in the spring. Will send for CT abdomen and pelvis to evaluate for any mesh migration or reherniation. Orders: Orders CT abdomen pelvis wo IV con Today K40.90 - Unilateral inguinal hernia, without obstruction or gangrene, not specified as recurrent Referrals Counseling Referral F33.1 - Major depressive disorder, recurrent, moderate Medications: New cyclobenzaprine 10 mg PO BEDTIME 30 days 30 tabs 0RF M54.9 - Dorsalgia, unspecified sertraline 50 mg PO DAILY 30 days 30 tabs 3RF F33.1 - Major depressive disorder, recurrent, moderate
== END 2024-08-03 10:09 | disposition home or self-care (01) ==
PROVIDERS: PCP Physician Assistant; Visit Provider Physician Assistant
DX: F33.1 Major depressive disorder, recurrent, moderate (principal); K40.90 Unilateral inguinal hernia, without obstruction or gangrene, not specified as recurrent

== ENCOUNTER → 2024-08-03 08:42 | Outpatient (BNVA) | payer OTHER, SELFPAY | PROVIDERS: PCP Physician Assistant; Visit Provider Physician Assistant | DX: K40.90 Unilateral inguinal hernia, without obstruction or gangrene, not specified as recurrent (principal); F33.1 Major depressive disorder, recurrent, moderate | CPT/HCPCS: 99212 ==

== ENCOUNTER 2024-08-14 11:56 | Outpatient (REF) | payer OTHER, SELFPAY ==
[2024-08-14 15:42] LABS: Hematocrit 48.8 % (42.0-52.0); Mean Corpuscular HGB Conc 32.8 g/dl (31.0-36.0); Mean Corpuscular Hemoglobin 31.1 pg (27.0-33.0); Mean Corpuscular Volume 94.8 fL (80.0-98.0); Mean Platelet Volume 10.1 fL (9.4-12.4); Platelet Count 228 X10*3/uL (160-400); Red Blood Count 5.15 X10*6/uL (4.60-5.80); Red Cell Distribution Width 11.6 % (11.0-16.0); White Blood Count 6.8 X10*3/uL (4.8-10.8)
[2024-08-14 15:58] LABS: Estimated Average Glucose 88 mg/dL; Hemoglobin A1C 114.1907 umol/L; Hemoglobin A1c % 4.7 % (<6.0)
[2024-08-14 16:36] LABS: Alanine Aminotransferase 17 U/L (0-40); Albumin Level 4.5 g/dL (3.5-5.0); Alkaline Phosphatase 76 U/L (39-117); Anion Gap 12 (12-20); Aspartate Amino Transferase 24 U/L (5-37); Blood Urea Nitrogen 10 mg/dL (9-16); Calcium 9.7 mg/dL (8.4-10.2); Carbon Dioxide 25 mmol/L (22-29); Chloride 105 mmol/L (96-108); Estimated Glomerular Filt Rate > 60; Glucose Fasting 90 mg/dL (60-99); Lipase 10 U/L (8-78); Sodium 138 mmol/L (135-145); Total Protein 8.1 g/dL (6.5-8.0)
[2024-08-15 05:31] LABS: CT PCR NOT DETECTED (Not Detect.); NG PCR NOT DETECTED (Not Detect.)
== END 2024-08-14 11:57 | disposition home or self-care (01) ==
LOC: HO.LAB 11:56
PROVIDERS: PCP Physician Assistant; Visit Provider Physician Assistant
DX: Z00.00 Encounter for general adult medical examination without abnormal findings (principal); D17.1 Benign lipomatous neoplasm of skin and subcutaneous tissue of trunk; F33.1 Major depressive disorder, recurrent, moderate; Z20.2 Contact with and (suspected) exposure to infections with a predominantly sexual mode of transmission; K21.9 Gastro-esophageal reflux disease without esophagitis; E11.9 Type 2 diabetes mellitus without complications
CPT/HCPCS: 80053; 83036; 83690; 85027; 87491; 87591; 90471; 96127; 99395

== ENCOUNTER 2024-08-14 13:15 | Outpatient (AMB) | payer OTHER, SELFPAY ==
--- NOTE | 2024-08-14 13:17 | A.OFFPC_ITS ---
Vital Signs 08/14/24 13:22 Height 5 ft 10 in Weight 182 lb 6 oz BMI 26.2 BP 110/70 Blood Pressure Location Lt brachial Position Sitting Pulse 97 Pulse Source Pulse Oximeter Pulse Oximetry (%) 95 Oxygen Delivery Method Room Air Intake Visit Reasons: annual exam Intake Note: Patient is here today for a physical. 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 Patient has a past medical history significant for GERD, anxiety, depression and PTSD, history of alcohol use disorder Concern--> reports he continues to have lower lumbar spine pain in the areas of his lower lumbar spine lot Andres is. Does have palpable soft mobile lumps located in his lower lumbar spine that has been evaluated in the past. He is interested in seeing general surgeon for removal. .. Depression: Has been trying to find a new psychiatrist, has been on multiple mental health medications in the past and has recently been struggling with his mental health. .. GERD: Patient continues to have a burning sensation in his epigastrium and has vomiting every morning a clear order his yellowish vomit. He has not been taking omeprazole though agrees to start taking this medication to help reduce gastritis. He admits that he has stopped drinking alcohol though does smoke marijuana to excess. .. Left inguinal hernia repair: Did undergo a left inguinal hernia repair in the spring, does report having some pain in the surgical site and some numbness and tingling in the groin and the left scrotum. Otherwise reports urinating and defecating without issue. He is due for a repeat CT scan to evaluate for mesh migration Vaccines: Up-to-date with tetanus vaccine, considering flu vaccine [facility] Medical History Screening for diabetes mellitus (DM) Knee joint cyst, right Rib pain on right side Lumbar radiculitis Allergic rhinitis Exposure to COVID-19 virus Screening for hypothyroidism Screening for STD (sexually transmitted disease) Screening for diabetes mellitus (DM) TBI (traumatic brain injury) Neurological symptoms Family history of diabetes mellitus Blurred vision Surgical History History of right knee surgery History of right inguinal hernia repair (01/03/24) Rupture of right patellar tendon Family History Father Hx of diabetes mellitus History of high blood pressure Mother No problems noted. Mother No problems noted. Social History (Updated 08/14/24 @ 13:35 by Chele Aquino PA-C) Housing: House Alcohol intake: former Patient Tobacco Use Status: Former Tobacco user e-Cigarette/Vaping Use: Former Use Second Hand Smoke Exposure: Yes Substance Use Type: Crack/Cocaine and Marijuana service: No Current occupational status: unemployed Current occupation: [employer] Current occupational exposures/hazards: No Cognitive needs: No Hearing needs: No Vision needs: Yes Questionnaire PHQ-9 Over the last 2 weeks, how often have you been bothered by any of the following problems? 1. Little interest or pleasure in doing things: not at all 2. Feeling down, depressed, or hopeless: not at all 3. Trouble falling or staying asleep, or sleeping too much: not at all 4. Feeling tired or having little energy: not at all 5. Poor appetite or overeating: not at all 6. Feeling bad about yourself - or that you are a failure or have let yourself or your family down: not at all 7. Trouble concentrating on things, such as reading the newspaper or watching television: not at all 8. Moving or speaking so slowly that other people could have noticed. Or the opposite - being so fidgety or restless that you have been moving around a lot more than usual: not at all 9. Thoughts that you would be better off or of hurting yourself in some way: not at all Total score: 0 Depression Screening Interpretation: Negative Depression Screening Done: Yes [id number] - PHQ-9 Billing: Yes Source: Developed by Drs. Nicholas Servin, Anny Ramon, Gerhard Bennett and colleagues, with an educational mercedes from [employer]. Thrive Questionnaire Date Thrive assessed: 08/14/24 I am a: Patient What is your living situation today?: I have a place to live, but I am worried about losing it in the future Within the past 12 months, did the food you bought not last and you didn't have the money to get more?: I choose not to answer this question Within the past 12 months, did you worry whether your food would run out before you got money to buy more?: I choose not to answer this question Do you have trouble paying for medicines?: No Do you have trouble getting transportation to medical appointments?: I choose not to answer this question Do you have trouble paying your heating and electricity bill?: Yes Do you have trouble taking care of your child, family member or friend?: Yes Do you have trouble with day-to-day activities such as bathing, preparing meals, shopping, managing finances, etc.?: No Are you currently unemployed and looking for a job?: I choose not to answer this question Are you interested in more education?: Yes Please select the resources that you would like help with: None Currently or been in a relationship where the following occur: I choose not to answer THRIVE Score: 2 AUDIT C Alcohol Use Questionnaire (AUDIT-C) 1. How often do you have a drink containing alcohol?: Never 3. How often do you have six or more drinks on one occasion?: Never Total Score: 0 ETTA-7 AMB Questionnaire ETTA-7 Date ETTA - 7 assessed: 08/14/24 Feeling nervous, anxious, or on edge: 0 = Not at all Not being able to stop or control worryin = Not at all Worrying too much about different things: 0 = Not at all Trouble relaxin = Not at all Being so restless that it is hard to sit still: 0 = Not at all Becoming easily annoyed or irritable: 0 = Not at all Feeling afraid as if something awful might happen: 0 = Not at all Total ETTA-7 score (0-4 normal; 5-9 mild; 10-14 moderate; 15-21 severe): 0 Source: Developed by Drs. Nicholas Servin, Anny Ramon, Gerhard Bennett and colleagues, with an educational mercedes from [employer]. ETTA-7 Assessment Billing ETTA-7 Assessment Tool: ETTA-7 Assessment 03704 Review of Systems Const Denies body aches, Denies chills, Denies excessive sweating, Denies fatigue, Denies fever(s) and Denies headache(s) Eyes Denies blurry vision ENT Denies dysphagia, Denies vertigo, Denies dizziness, Denies headache(s), Denies hearing loss and Denies tinnitus Card Denies chest pain, Denies chest pain with activity, Denies syncope, Denies irregular heart rhythm and Denies dyspnea Resp Denies chest congestion, Denies cough, Denies hemoptysis, Denies dyspnea and Denies wheezing GI Denies abdominal pain, Denies melena, Denies hematochezia, Denies coffee ground emesis, Denies dysphagia, Denies diarrhea, Denies nausea and Denies vomiting Denies difficulty urinating, Denies dysuria, Denies urinary frequency, Denies urinary hesitancy and Denies urinary urgency Musc Denies arthralgias, Denies limited range of motion, Denies muscle cramps and Denies muscle weakness Skin/Breast Denies rash and Denies skin ulcer Neuro Denies Abnormal speech present, Denies confusion, Denies vertigo, Denies dizziness, Denies syncope, Denies headache(s), Denies memory loss and Denies seizure-like activity Psych Denies anxiety, Denies confusion, Denies depression, Denies memory loss, Denies panic attacks and Denies paranoia Endo Denies excessive sweating, Denies fatigue, Denies flushing, Denies polydipsia and Denies polyuria Aller/Immun Denies wheezing Physical exam (Primary Care) Vital Signs: Last Vital Signs Pulse 97 08/14/24 13:22 BP 110/70 08/14/24 13:22 Pulse Ox 95 08/14/24 13:22 Oxygen Delivery Method Room Air 08/14/24 13:22 BMI result Body Mass Index 26.2 Tobacco/Smoking Status: Tobacco use Status Tobacco use date assessed 08/03/24 08/14/24 13:18 Patient Tobacco Use Status Former Tobacco user 08/14/24 13:35 Tobacco use type 08/04/24 08:46 e-Cigarette/Vaping Use Former Use 08/14/24 13:35 PHQ-9: PHQ-9 Score PHQ-9: Total score 0 08/14/24 13:27 Depression Screening Interpretation: Negative Thrive Assessment: Date of Thrive Assessment Date Thrive assessed 08/14/24 08/14/24 13:18 Currently or been in a relationship where the following occur: I choose not to answer Const General: cooperative, comfortable, no acute distress, alert and awake; No confusion Orientation/consciousness: oriented to person, oriented to place, patient oriented x3 and No confusion HENMT Head: Yes normocephalic Ears: external ears normal and TM's normal bilaterally Face and sinus: No sinus tenderness Mouth: Normal oral and palatal mucosa present and tongue normal Teeth and gingiva: dentition normal and gingiva normal Throat: Yes posterior oropharynx normal, Yes tonsils normal and Yes uvula m idline Eyes Conjunctivae: conjunctivae normal Sclerae: sclerae normal Pupils: Equal, round and reactive pupils present EOM: EOMs intact bilaterally Direct Ophthalmoscopy: No no photophobia Neck Neck: Yes no lymphadenopathy, No tender and Yes no JVD Thyroid: Thyroid normal Carotids: no bruits Chest Chest palpation & inspection: no tenderness Resp Effort & Inspection: normal respiratory effort, no audible wheezes, not labored and no stridor Auscultation: no crackles, no rales, no rhonchi and no wheezes Cardio Jugular venous distension: no JVD Rate: regular rate, not bradycardic and not tachycardic Rhythm: regular rhythm Bruits: no carotid bruits Peripheral pulses: Peripheral pulses 2+ throughout GI Inspection: Yes normal to inspection, No abdominal wall ecchymosis and No visible herniation Palpation (GI): Soft to palpation, nontender, no guarding, not rigid and No hepatosplenomegaly present Auscultation: normoactive bowel sounds General: Yes no CVA tenderness Back/Spine/Pelvis Back: no CVA tenderness and No back tenderness Cervical Spine: cervical ROM normal Thoracic/Lumbar Spine: thoracic and lumbar spine normal to inspection, straight leg raise negative bilaterally, No thoraco-lumbar ROM limited and No lumbar spinal tenderness Skin Lesions: no lesions Rashes: no rashes Wounds: no wounds Neuro General: oriented to person, oriented to place, patient oriented x3, CN's II-XI intact bilaterally and No confusion Cranial nerves: Yes Equal, round and reactive pupils present and Yes Normal accommodation reflex present Cognition (Neuro): normal cognition Speech: No Abnormal speech present Gait exam (Neuro): Normal gait present Motor exam (neuro): 5/5 motor strength present throughout Extrem Right upper extremity: full ROM; no cyanosis Left upper extremity: full ROM; no cyanosis Right lower extremity: no edema Left lower extremity: no edema Psych Appearance: grossly normal Mental Status: mental status grossly normal Affect: normal affect Attitude: cooperative Thought process: Normal thought process present Office Procedures Flu Questionnaire Does the patient have a severe egg allergy?: No Immunizations Fluarix Triv [id number] (PF) 45 mcg (15 mcg x 3)/0.5 mL IM syringe Performing Provider: Chele Aquino PA-C [facility] [place] [facility] Documented (not given) by: TERRI Chapman on 08/14/24 13:26 Reason Not Given: Patient Refused Coding Level of Care Code Est Pt Prev Care 18-39y(70567) Diagnoses Annual physical exam Z00.00 Lipoma of back D17.1 MDD (major depressive disorder), recurrent episode, moderate F33.1 Gastroesophageal reflux disease without esophagitis K21.9 Esophagitis presence: without esophagitis Additional Codes ETTA-7 Assessment Billing - ETTA-7 Assessment Tool: ETTA-7 Assessment 60411 ([id number]) Assessment & Plan Assessment & Plan (1) Annual physical exam: Code(s): Z00.00 - Encounter for general adult medical examination without abnormal findings Category: Medical Plan: As per HPI (2) Lipoma of back: Code(s): D17.1 - Benign lipomatous neoplasm of skin and subcutaneous tissue of trunk Category: Medical Plan: Has a few palpable soft subcutaneous lipomas over lumbar spine region. 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 He would like removal. (3) MDD (major depressive disorder), recurrent episode, moderate: Code(s): F33.1 - Major depressive disorder, recurrent, moderate Category: Medical Plan: Patient continues to suffer with depression. He will be starting sertraline soon when he gets the medication from the pharmacy he was called by the mental health clinic and will be starting up with mental health therapy soon. (4) GERD (gastroesophageal reflux disease): Comment: Alcohol likely plays a role Reflux precaution Code(s): K21.9 - Gastro-esophageal reflux disease without esophagitis Category: Medical Qualifiers: Esophagitis presence: without esophagitis Qualified Code(s): K21.9 - Gastro-esophageal reflux disease without esophagitis Plan: Patient continues to have GERD like symptoms, he does report vomiting every morning a clear yellowish fluid. He reports stopped drinking alcohol completely. He has stopped using omeprazole though will start these meds again. Orders: Orders Influenza [id number] Immunization 08/14/24 Z23 - Encounter for immunization CT NG by PCR 08/14/24 Z11.3 - Encounter for screening for infections with a predominantly sexual mode of transmission, Z20.2 - Contact with and (suspected) exposure to infections with a predominantly sexual mode of transmission Complete Blood Count no Diff 08/14/24 K21.9 - Gastro-esophageal reflux disease without esophagitis Lipase 08/14/24 K21.9 - Gastro-esophageal reflux disease without esophagitis Hemoglobin A1c 08/14/24 Z11.3 - Encounter for screening for infections with a predominantly sexual mode of transmission Comprehensive [place]. Panel Fast 08/14/24 E11.9 - Type 2 diabetes mellitus without complications
[2024-08-14 13:22] VITALS: BP 110/70; PULSE 97; O2SAT 95; BMI 26.2
== END 2024-08-14 13:47 | disposition home or self-care (01) ==
PROVIDERS: PCP Physician Assistant; Visit Provider Physician Assistant
DX: Z00.00 Encounter for general adult medical examination without abnormal findings (principal); D17.1 Benign lipomatous neoplasm of skin and subcutaneous tissue of trunk; F33.1 Major depressive disorder, recurrent, moderate; K21.9 Gastro-esophageal reflux disease without esophagitis

== ENCOUNTER 2024-08-22 09:49 | Outpatient (AMB) | payer OTHER, SELFPAY ==
--- NOTE | 2024-08-22 11:05 | MHC.OFFWIV ---
Intake Vital Signs 08/22/24 11:12 Height 5 ft 10 in Weight 189 lb BMI 27.1 BP 98/64 Blood Pressure Location Rt brachial Position Sitting Pulse 57 Pulse Source Pulse Oximeter Pulse Oximetry (%) 98 Oxygen Delivery Method Room Air Intake Visit Reasons: EP laceration on finger [phone] Intake Note: Patient here for laceration on pointer finger of left hand. Patient Tobacco Use Status: Former Tobacco user Allergies Penicillins [PENICILLINS] Allergy (Severe, Verified 08/22/24 11:12) DIFFICULTY BREATHING penicillin V Allergy (Unknown, Verified 08/22/24 11:12) throat swlelling, anaphylaxis From Augmentin Allergy (Unknown, Uncoded 08/22/24 11:12) UNKNOWN Do you need a note to return to daycare/school/sports/work: Yes HPI HPI Comments History of Present Illness Details Patient is a 34-year-old male complaining of a cut on his right 2nd digit. He tells me that 7 days ago, he cut it with his loyd's tool at work. He said the skin came right off. He tells me he has been keeping it clean and dry since then but has a not been applying any ointments or creams. He states it feels a little numb. He can move his finger normally. [facility], [facility] Medical History Screening for diabetes mellitus (DM) Knee joint cyst, right Rib pain on right side Lumbar radiculitis Allergic rhinitis Exposure to COVID-19 virus Screening for hypothyroidism Screening for STD (sexually transmitted disease) Screening for diabetes mellitus (DM) TBI (traumatic brain injury) Neurological symptoms Family history of diabetes mellitus Blurred vision Surgical History History of right knee surgery History of right inguinal hernia repair (01/03/24) Rupture of right patellar tendon Family History Father Hx of diabetes mellitus History of high blood pressure Mother No problems noted. Mother No problems noted. Social History (Updated 08/14/24 @ 13:35 by Chele Aquino PA-C) Housing: House Alcohol intake: former Patient Tobacco Use Status: Former Tobacco user e-Cigarette/Vaping Use: Former Use Second Hand Smoke Exposure: Yes Substance Use Type: Crack/Cocaine and Marijuana service: No Current occupational status: unemployed Current occupation: [employer] Current occupational exposures/hazards: No Cognitive needs: No Hearing needs: No Vision needs: Yes Review of Systems Const All systems reviewed & are unremarkable except as noted in HPI and below Physical Exam Vital Signs: Last Vital Signs Pulse 57 08/22/24 11:12 BP 98/64 08/22/24 11:12 Pulse Ox 98 08/22/24 11:12 Oxygen Delivery Method Room Air 08/22/24 11:12 BMI result Body Mass Index 27.1 Const General: cooperative, healthy appearing, comfortable, no acute distress and well developed Orientation/consciousness: patient oriented x3 Limitations: no limitations HEENT Head: Yes normal to inspection Neck Neck: Yes normal visual inspection and Yes supple Skin Other: Right 2nd digit has 0.5 cm area of dried blood/scab, no surrounding erythema, no warmth, no purulence. No other signs of infection noted. This digit has full range of motion and neurovascularly intact Neuro General: patient oriented x3 Assessment & Plan Assessment & Plan (1) Laceration of finger of right hand: Code(s): S61.219A - Laceration without foreign body of unspecified finger without damage to nail, initial encounter Qualifiers: Encounter type: initial encounter Finger: index finger Damage to nail status: without damage Foreign body presence: without foreign body Qualified Code(s): S61.210A - Laceration without foreign body of right index finger without damage to nail, initial encounter Plan: Recommended he keep it clean dry and intact and cover it with a Band-Aid when he goes out in public. Also, should apply Aquaphor ointment twice daily. Plan see above Coding Level of Care Code Est Pt Level 3 (03448) Diagnoses Laceration of right index finger without foreign body without damage to nail, initial encounter S61.210A Encounter type: initial encounter Finger: index finger Damage to nail status: without damage Foreign body presence: without foreign body
[2024-08-22 11:12] VITALS: BP 98/64; PULSE 57; O2SAT 98; BMI 27.1
== END 2024-08-22 11:35 | disposition home or self-care (01) ==
PROVIDERS: PCP Physician Assistant; Visit Provider Physician Assistant
DX: S61.210A Laceration without foreign body of right index finger without damage to nail, initial encounter (principal); Z04.2 Encounter for examination and observation following work accident

== ENCOUNTER → 2024-08-22 09:49 | Outpatient (BNVA) | payer OTHER, SELFPAY | PROVIDERS: PCP Physician Assistant; Visit Provider Physician Assistant | DX: S61.210A Laceration without foreign body of right index finger without damage to nail, initial encounter (principal) | CPT/HCPCS: 99212 ==

== ENCOUNTER 2024-09-26 13:21 | Outpatient (AMB) | payer OTHER, SELFPAY ==
--- NOTE | 2024-09-26 13:24 | A.OFFVIS_ITS ---
Vital Signs 09/26/24 13:34 Height 5 ft 10 in Weight 181 lb BMI 26.0 BP 119/64 Blood Pressure Location Lt brachial Position Sitting Pulse 66 Intake Visit Reasons: Inginal hernia area, pain on side Intake Note: Patient is seen in office for pain at surgical site, post right inguinal hernia 01/03/24. Pt c/o: since post surgery been having pain in the surgical area, has been giving it time but the pain has not gone away, feels like stabbing L.OV:02/15/24 Receiving Room Clerk Required: No Accompanied by: Family/Other Allergies Penicillins [PENICILLINS] Allergy (Severe, Verified 09/26/24 13:31) DIFFICULTY BREATHING penicillin V Allergy (Unknown, Verified 09/26/24 13:31) throat swlelling, anaphylaxis From Augmentin Allergy (Unknown, Uncoded 09/26/24 13:31) UNKNOWN Medication List - Last Reconciled 09/26/24 by Endy Ramos MD cyclobenzaprine 10 mg PO BEDTIME 30 days mirtazapine 30 mg PO DAILY omeprazole 20 mg PO DAILY sertraline 50 mg PO DAILY 30 days HPI Comments Details: Shaan returns for evaluation of continued discomfort in the right groin following repair of a right inguinal hernia. The pain seems to be worse when bending down. He also notes pain extending to the site as well. He apparently is scheduled for an upper GI study at an outside institution (maybe [facility]) for further workup of upper abdominal symptoms. He denies fever or chills. [facility] Medical History Screening for diabetes mellitus (DM) Knee joint cyst, right Rib pain on right side Lumbar radiculitis Allergic rhinitis Exposure to COVID-19 virus Screening for hypothyroidism Screening for STD (sexually transmitted disease) Screening for diabetes mellitus (DM) TBI (traumatic brain injury) Neurological symptoms Family history of diabetes mellitus Blurred vision Surgical History History of right knee surgery History of right inguinal hernia repair (01/03/24) Rupture of right patellar tendon Family History Father Hx of diabetes mellitus History of high blood pressure Mother No problems noted. Mother No problems noted. Social History Housing: House Alcohol intake: former Patient Tobacco Use Status: Former Tobacco user e-Cigarette/Vaping Use: Former Use Second Hand Smoke Exposure: Yes Substance Use Type: Crack/Cocaine and Marijuana service: No Current occupational status: unemployed Current occupation: [employer] Current occupational exposures/hazards: No Cognitive needs: No Hearing needs: No Vision needs: Yes Review of Systems Const All systems reviewed & are unremarkable except as noted in HPI and below Physical Exam Vital Signs: Last Vital Signs Pulse 66 09/26/24 13:34 BP 119/64 09/26/24 13:34 BMI result Body Mass Index 26.0 Const General: no acute distress Nutritional Appearance: well nourished Orientation/consciousness: patient oriented x3 Limitations: no limitations Resp Effort & Inspection: normal respiratory effort GI Other: Soft and nondistended. Well-healed incision in the right groin with no hernia noted with Valsalva maneuvers. There is palpable tenderness in the mid incision extending laterally. There appears to be muscle spasm laterally along the obliques. This is tender to palpation as well. Neuro General: patient oriented x3 Extrem General: Yes normal to inspection Assessment & Plan Assessment & Plan (1) Right inguinal hernia: Code(s): K40.90 - Unilateral inguinal hernia, without obstruction or gangrene, not specified as recurrent Category: Surgical Plan Patient complaining of pain in the right groin extending into the right flank with evidence of muscle spasm in the oblique muscles. I am unable to palpate a recurrent hernia but have suggested a CT of the pelvis to better evaluate this location. He is undergoing a contrasted study at [facility] therefore I will hold off on the CT scan until after this has resulted. He will have the report of this study sent to us to be reviewed. Further management based on these results. Coding Level of Care Code Est Pt Level 3 (22622) Diagnoses Right inguinal hernia K40.90
[2024-09-26 13:34] VITALS: BP 119/64; PULSE 66; BMI 26.0
== END 2024-09-26 14:01 | disposition home or self-care (01) ==
PROVIDERS: PCP Physician Assistant; Visit Provider Surgery
DX: K40.90 Unilateral inguinal hernia, without obstruction or gangrene, not specified as recurrent (principal)
CPT/HCPCS: 99213

== ENCOUNTER 2024-10-18 09:08 | Outpatient (REF) | payer OTHER, SELFPAY ==
--- NOTE | ~2024-10-18 | CT_ITS ---
EXAMINATION: CT ABDOMEN PELVIS WITH IV CONTRAST HISTORY: K40.90 - Unilateral inguinal hernia, without obstruction or gangrene, no... COMPARISON: Comparison is made with the prior examination dated 03/12/2023. TECHNIQUE: CT scan of the abdomen and pelvis was performed following administration of 85 mL Omnipaque 350 using standard departmental protocol. Coronal and sagittal reformatted images were generated and reviewed. The patient received oral contrast material. This CT exam was performed with one or more of the following dose reduction techniques: automated exposure control, adjustment of the mA and/or kV according to patient size, use of iterative reconstruction technique. DLP: 404 mGy-cm FINDINGS: LOWER CHEST: The visualized lung bases are clear. There is no pleural effusion. CARDIOVASCULATURE: The heart is normal in size. There is no pericardial effusion. LIVER: The liver is normal in size and contour. No liver mass is identified. The hepatic and portal veins are patent. GALLBLADDER / BILE DUCTS: The gallbladder is unremarkable. There is no intra or extrahepatic biliary ductal dilatation. SPLEEN: The spleen is normal in size. No focal splenic lesion is identified. PANCREAS: There is a stable 5 mm hypodensity in the pancreatic head. ADRENAL GLANDS: Within normal limits. KIDNEYS/RETROPERITONEUM: No renal calculi are identified. There is no hydronephrosis. No renal masses are identified. LYMPH NODES: No abdominal or pelvic lymphadenopathy. VASCULATURE: The abdominal aorta is normal in caliber. MESENTERY/PERITONEUM: No free fluid. No masses. There is no free intraperitoneal gas. STOMACH: The stomach is collapsed, limiting evaluation. SMALL BOWEL: The small bowel is normal in caliber. COLON: The colon is unremarkable. APPENDIX: Normal. URINARY BLADDER/PELVIC ORGANS: The urinary bladder is collapsed, limiting evaluation. The prostate is normal in size. BONES / SOFT TISSUES: There are postsurgical changes in the right inguinal region from prior hernia repair. No recurrent hernia is identified. There is no fluid collection. The bones are intact. CT/CT abdomen pelvis w IV con IMPRESSION: 1. Status post right inguinal hernia repair. No recurrent hernia or fluid collection is identified. 2. Stable 5 mm hypodensity in the pancreatic head. This could be further evaluated with MRI if desired. Electronically signed by: Nicholas Allen MD 10/20/2024 07:47 AM SAEED
[2024-10-18] MEDS: Barium Sulfate Oral (Vanilla) 450 ML ORAL.SUSP 900 ML PO (11:58)
[2024-10-18] MEDS: iohexoL 350 MG/ML 100 ML INFUS..BTL 85 ML IV (11:58)
== END 2024-10-18 09:09 | disposition home or self-care (01) ==
LOC: HO.CT 09:08
PROVIDERS: PCP Physician Assistant; Visit Provider Physician Assistant
DX: K40.90 Unilateral inguinal hernia, without obstruction or gangrene, not specified as recurrent (principal)
CPT/HCPCS: 74177; Q9967

== ENCOUNTER → 2024-10-18 09:10 | Outpatient (BNV) | payer OTHER, SELFPAY | PROVIDERS: PCP Physician Assistant; Visit Provider Radiology Diagnostic Radiology | DX: K86.89 Other specified diseases of pancreas (principal) | CPT/HCPCS: 74177 ==

== ENCOUNTER 2024-11-02 13:47 | Outpatient (AMB) | payer OTHER, SELFPAY ==
[2024-11-02 13:51] VITALS: BP 102/70; PULSE 71; O2SAT 96; BMI 25.3
--- NOTE | 2024-11-02 13:52 | A.OFFPC_ITS ---
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 Accompanied by: Self / Same As Patient Allergies Penicillins [PENICILLINS] Allergy (Severe, Verified 11/02/24 23:44) DIFFICULTY BREATHING penicillin V Allergy (Unknown, Verified 11/02/24 23:44) throat swlelling, anaphylaxis From Augmentin Allergy (Unknown, Uncoded 11/02/24 23:44) UNKNOWN Medication List - Last Reconciled 11/02/24 by ANIRUDH Briones cyclobenzaprine 10 mg PO BEDTIME 30 days mirtazapine 30 mg PO DAILY omeprazole 20 mg PO DAILY sertraline 50 mg PO DAILY 30 days Tobacco use date assessed: 11/02/24 Dental Screening Dental Screen Date: 11/02/24 Did you have a dental visit in the last 12 months?: No Did you have a dental problem in the last 6 months where you did not have access to dental care?: No Was dental information given to patient?: Patient has dentist HPI Abdominal pain HPI Details The patient is a 34-year-old male with significant past medical history of right inguinal hernia repair, TBI, Peyronie's disease, general anxiety disorder, right upper quadrant pain, major depressive disorder, postprandial epigastric pain Patient is presenting day for complaints of abdominal pain The patient reports that this has been ongoing He reports that he recently had a CT of the abdomen and would like to know the results Discussed with patient that a cystic mass was noted on his pancreas In addition, he has a MRI pending to further evaluate, to give a clearer picture of what it is The patient would like to know what could possibly be the cause reiterated to the patient that the area needs to be evaluate further to determine reports heart burn, denies nausea, vomiting, flatulence and diarrhea, but endorses occasional constipation The patient reports lower back pain reports that this has been going on as well urinalysis done in office-no blood in the urine noted or no bacteria noted reports that his body feels stiff The patient was encouraged to stretch and exercise as tolerated He denies any injury or strain that he could recall endorse tenderness lower lumbar spine The patient reports that he feels some pressure in between his scrotum and rectum reports that he would get the sensation to urinate urinate with a strong stream, but then feels like he still needs to go STD panel was ordered and the patient was encouraged to follow up back with urology because he already has an relationship with that speciality. The patient is hesitant because he does not want to get his prostate checked PSA ordered with labs to further evaluate [facility] Medical History Screening for diabetes mellitus (DM) Knee joint cyst, right Rib pain on right side Lumbar radiculitis Allergic rhinitis Exposure to COVID-19 virus Screening for hypothyroidism Screening for STD (sexually transmitted disease) Screening for diabetes mellitus (DM) TBI (traumatic brain injury) Neurological symptoms Family history of diabetes mellitus Blurred vision Surgical History History of right knee surgery History of right inguinal hernia repair (01/03/24) Rupture of right patellar tendon Family History Father Hx of diabetes mellitus History of high blood pressure Mother No problems noted. Mother No problems noted. Social History Housing: House Alcohol intake: former Patient Tobacco Use Status: Former Tobacco user e-Cigarette/Vaping Use: Former Use Second Hand Smoke Exposure: Yes Substance Use Type: Crack/Cocaine and Marijuana service: No Current occupational status: unemployed Current occupation: [employer] Current occupational exposures/hazards: No Cognitive needs: No Hearing needs: No Vision needs: Yes Questionnaire PHQ-9 Over the last 2 weeks, how often have you been bothered by any of the following problems? 1. Little interest or pleasure in doing things: not at all 2. Feeling down, depressed, or hopeless: not at all 3. Trouble falling or staying asleep, or sleeping too much: not at all 4. Feeling tired or having little energy: not at all 5. Poor appetite or overeating: not at all 6. Feeling bad about yourself - or that you are a failure or have let yourself or your family down: not at all 7. Trouble concentrating on things, such as reading the newspaper or watching television: not at all 8. Moving or speaking so slowly that other people could have noticed. Or the opposite - being so fidgety or restless that you have been moving around a lot more than usual: not at all 9. Thoughts that you would be better off or of hurting yourself in some way: not at all Total score: 0 Depression Screening Interpretation: Negative Depression Screening Done: Yes 98175 - PHQ-9 Billing: Yes Source: Developed by Drs. Nicholas Servin, Anny Ramon, Gerhard Bennett and colleagues, with an educational mercedes from [employer]. Thrive Questionnaire Date Thrive assessed: 11/02/24 I am a: Patient What is your living situation today?: I have a place to live, but I am worried about losing it in the future Within the past 12 months, did the food you bought not last and you didn't have the money to get more?: I choose not to answer this question Within the past 12 months, did you worry whether your food would run out before you got money to buy more?: I choose not to answer this question Do you have trouble paying for medicines?: No Do you have trouble getting transportation to medical appointments?: I choose not to answer this question Do you have trouble paying your heating and electricity bill?: Yes Do you have trouble taking care of your child, family member or friend?: Yes Do you have trouble with day-to-day activities such as bathing, preparing meals, shopping, managing finances, etc.?: No Are you currently unemployed and looking for a job?: I choose not to answer this question Are you interested in more education?: Yes Please select the resources that you would like help with: None Currently or been in a relationship where the following occur: I choose not to answer THRIVE Score: 2 AUDIT C Alcohol Use Questionnaire (AUDIT-C) 1. How often do you have a drink containing alcohol?: Never 3. How often do you have six or more drinks on one occasion?: Never Total Score: 0 ETTA-7 AMB Questionnaire ETTA-7 Date ETTA - 7 assessed: 11/02/24 Feeling nervous, anxious, or on edge: 0 = Not at all Not being able to stop or control worryin = Not at all Worrying too much about different things: 0 = Not at all Trouble relaxin = Not at all Being so restless that it is hard to sit still: 0 = Not at all Becoming easily annoyed or irritable: 0 = Not at all Feeling afraid as if something awful might happen: 0 = Not at all Total ETTA-7 score (0-4 normal; 5-9 mild; 10-14 moderate; 15-21 severe): 0 Source: Developed by Drs. Nicholas Servin, Anny Ramon, Gerhard Bennett and colleagues, with an educational mercedes from [employer]. ETTA-7 Assessment Billing ETTA-7 Assessment Tool: ETTA-7 Assessment 12051 Review of Systems Const Details: Denies chills, Denies fatigue, Denies fever(s), Denies headache(s) and Denies weakness HEENT Denies change in vision, Denies dizziness, Denies headache(s), Denies hearing loss, Denies nasal congestion, Denies sinus pain, Denies sinus pressure and D enies sore throat Card Denies chest pain, Denies lightheadedness, Denies dyspnea and Denies other (palpitations) Resp Denies cough, Denies dyspnea and Denies wheezing GI reports abdominal pain, Denies melena, Denies hematochezia, Denies change in bowel habits, Denies dyspepsia and Denies nausea Denies hematuria and Denies dysuria, reports urgency after emptying bladder Musc Denies abnormal gait, reports lower back pain, Denies numbness and Denies tingling Skin/Breast Denies rash, Denies unusual bruising and Denies wounds Neuro Denies abnormal gait, Denies dizziness, Denies headache(s), Denies memory loss, Denies numbness, Denies Sensory deficit (Neuro), Denies tingling and Denies weakness Psych Denies anxiety, Denies depression and Denies memory loss Endo Denies cold intolerance, Denies fatigue, Denies heat intolerance, Denies polydipsia and Denies polyuria Barrett/Lymph Denies easy bleeding and Denies easy bruising Aller/Immun Denies wheezing Physical exam (Primary Care) Vital Signs: Last Vital Signs Pulse 71 11/02/24 13:51 BP 102/70 11/02/24 13:51 Pulse Ox 96 11/02/24 13:51 Oxygen Delivery Method Room Air 11/02/24 13:51 BMI result Body Mass Index 25.3 Tobacco/Smoking Status: Tobacco use Status Tobacco use date assessed 11/02/24 11/02/24 13:57 Patient Tobacco Use Status Former Tobacco user 11/02/24 13:57 Tobacco use type 08/22/24 09:48 e-Cigarette/Vaping Use Former Use 11/02/24 13:57 PHQ-9: PHQ-9 Score PHQ-9: Total score 0 11/02/24 14:33 Depression Screening Interpretation: Negative Thrive Assessment: Date of Thrive Assessment Date Thrive assessed 11/02/24 11/02/24 13:57 Currently or been in a relationship where the following occur: I choose not to answer Const Other: General: no acute distress, well developed, alert and awake Nutritional Appearance: well nourished Orientation/consciousness: patient oriented x3 HENMT Head: Yes normocephalic and Yes atraumatic Ears: hearing grossly normal bilaterally and TM's normal bilaterally Eyes Pupils: Equal, round and reactive pupils present and Pupil accommodation reflex normal Chest Chest palpation & inspection: normal inspection of the chest Resp Effort & Inspection: normal respiratory effort Auscultation: clear to auscultation bilaterally Cardio Rate: regular rate Rhythm: regular rhythm Heart sounds: S1 normal heart sound present, S2 normal heart sound present, no gallops, no murmurs and no rubs GI Palpation (GI): tenderness to epigastric region Auscultation: normal bowel sounds General: Yes no CVA tenderness Back/Spine/Pelvis Back: no CVA tenderness other: +lower paraspinal tenderness Skin General: warm and dry. Normal skin color. Normal skin turgor Lesions: no lesions Rashes: no rashes Trauma: no lacerations or abrasions Wounds: no wounds Nails: normal Neuro General: patient oriented x3, gait normal Cranial nerves: Yes Equal, round and reactive pupils present Cognition (Neuro): normal cognition Gait exam (Neuro): Normal gait present Motor exam (neuro): 5/5 motor strength present throughout Sensory Exam: No Sensory deficit (Neuro) Deep tendon reflexes (DTR's): Right patellar reflex intensity grade: 2+ and Left patellar reflex intensity grade: 2+ Extrem General: Yes normal to inspection, No edema and No calf tenderness Psych Appearance: grossly normal Affect: normal affect Attitude: cooperative Thought process: Normal thought process present Results AMB Urinalysis, Automated UA Leukoctes 0 Kaitlynn/uL Last Edit by Mohinder Lawrence [facility] on 11/02/24 14:36 UA Nitrite Negative Last Edit by Mohinder Lawrence [facility] on 11/02/24 14:36 UA Urobilinogen 0 mg/dL Last Edit by Mohinder Lawrence [facility] on 11/02/24 14:36 UA Protein 0 mg/dL Last Edit by Mohinder Lawrence [facility] on 11/02/24 14:36 UA pH 6.0 Last Edit by Mohinder Lawrence [facility] on 11/02/24 14:36 UA Blood 0 Mp/uL Last Edit by Mohinder Lawrence [facility] on 11/02/24 14:36 UA Specific [place] 1.010 Last Edit by Mohinder Lawrence [facility] on 11/02/24 14: 36 UA Ketone Negative Last Edit by Mohinder Lawrence [facility] on 11/02/24 14:36 UA Bilirubin 0 mg/dL Last Edit by Mohinder Lawrence [facility] on 11/02/24 14:36 UA Glucose 0 mg/dL Last Edit by Mohinder Lawrence [facility] on 11/02/24 14:36 Results Reviewed Results Reviewed: Laboratory Last Values Urine pH (Auto) 6.0 11/02/24 14:29 Specific [place] (Auto) 1.010 11/02/24 14:29 Urine Protein (Auto) 0 mg/dL 11/02/24 14:29 Glucose (UA)(Auto) 0 mg/dL 11/02/24 14:29 Urine Ketones (Auto) Negative 11/02/24 14:29 Urine Blood (Auto) 0 Mp/uL 11/02/24 14:29 Urine Nitrite (Auto) Negative 11/02/24 14:29 Urine Bilirubin (Auto) 0 mg/dL 11/02/24 14:29 Urine Urobilinogen (Auto) 0 mg/dL 11/02/24 14:29 Leukocyte Esterase (Auto) 0 Kaitlynn/uL 11/02/24 14:29 Coding Level of Care Code Est Pt Level 4 (09315) Diagnoses Low back pain without sciatica, unspecified back pain laterality, unspecified chronicity M54.50 Chronicity: unspecified Back pain laterality: unspecified Sciatica presence: without sciatica Cystic mass of pancreas K86.2 Right inguinal hernia K40.90 Gastroesophageal reflux disease without esophagitis K21.9 Esophagitis presence: without esophagitis Urinary urgency R39.15 Additional Codes PHQ-9 - 63500 - PHQ-9 Billing: Yes ([id number]) ETTA-7 Assessment Billing - ETTA-7 Assessment Tool: ETTA-7 Assessment 41593 ([id number]) Assessment & Plan Assessment & Plan (1) Lower back pain: Code(s): M54.50 - Low back pain, unspecified Category: Medical Qualifiers: Chronicity: unspecified Back pain laterality: unspecified Sciatica presence: without sciatica Qualified Code(s): M54.50 - Low back pain, unspecified Plan: The patient c/o lower back pain on both sides. Urinalysis done in office was negative for hematuria or bacteria The reports feeling stiff. Encouraged to stretch and exercise as tolerated. Continues cycloenzaprine 10 mg at bedtime You may use Tylenol otc as needed May consider and a lumbar xray if pain continues (2) Cystic mass of pancreas: Code(s): K86.2 - Cyst of pancreas Category: Medical Plan: CT of abdomen showed and small cystic mass on pancreas. The patient has a follow MRI pending to further evaluate (3) Right inguinal hernia: Code(s): K40.90 - Unilateral inguinal hernia, without obstruction or gangrene, not specified as recurrent Category: Surgical Plan: Post-surgical repair. Patient c/o pain inside/behind the surgical site. CT of abdomen of the area showed post-surgical repair with injury to the site. (4) GERD (gastroesophageal reflux disease): Comment: Alcohol likely plays a role Reflux precaution Code(s): K21.9 - Gastro-esophageal reflux disease without esophagitis Category: Medical Qualifiers: Esophagitis presence: without esophagitis Qualified Code(s): K21.9 - Gastro-esophageal reflux disease without esophagitis Plan: The patient is noncompliant with omeprazole, the patient was also ordered carafate by GI. He did not pickling grader the medication from the pharmacy. Reinforced dietary restrictions. Do not eat close to bedtime. Low yourself 3-4 hours before lying down after eating (5) Urinary urgency: Code(s): R39.15 - Urgency of urination Category: Medical Plan urinalyis neg in office. urinalysis with reflex was ordered to be done in the lab. STD panel was also ordered. Patient was encouraged to follow up with urology. PSA was ordered as well Orders: Orders AMB Urinalysis Automated 11/02/24 Z13.9 - Encounter for screening, unspecified Complete Blood Count Auto Diff 11/02/24 A64 - Unspecified sexually transmitted disease, K40.90 - Unilateral inguinal hernia, without obstruction or gangrene, not specified as recurrent, K86.2 - Cyst of pancreas, M54.50 - Low back pain, u nspecified, N13.9 - Obstructive and reflux uropathy, unspecified, N48.6 - Induration penis plastica, Z00.00 - Encounter for general adult medical examination without abnormal findings, Z11.3 - Encounter for screening for infections with a predominantly sexual mode of transmission Comprehensive [place]. Panel Fast 11/02/24 A64 - Unspecified sexually transmitted disease, K40.90 - Unilateral inguinal hernia, without obstruction or gangrene, not specified as recurrent, K86.2 - Cyst of pancreas, M54.50 - Low back pain, unspecified, N13.9 - Obstructive and reflux uropathy, unspecified, N48.6 - Induration penis plastica, Z00.00 - Encounter for general adult medical examination without abnormal findings, Z11.3 - Encounter for screening for infections with a predominantly sexual mode of transmission CRP High Sensitivity 11/02/24 A64 - Unspecified sexually transmitted disease, K40.90 - Unilateral inguinal hernia, without obstruction or gangrene, not specified as recurrent, K86.2 - Cyst of pancreas, M54.50 - Low back pain, unspecified, N13.9 - Obstructive and reflux uropathy, unspecified, N48.6 - Induration penis plastica, Z00.00 - Encounter for general adult medical examination without abnormal findings, Z11.3 - Encounter for screening for infections with a predominantly sexual mode of transmission Syphilis Screen 11/02/24 A64 - Unspecified sexually transmitted disease, K40.90 - Unilateral inguinal hernia, without obstruction or gangrene, not specified as recurrent, K86.2 - Cyst of pancreas, M54.50 - Low back pain, unspecified, N13.9 - Obstructive and reflux uropathy, unspecified, N48.6 - Induration penis plastica, Z00.00 - Encounter for general adult medical examination without abnormal findings, Z11.3 - Encounter for screening for infections with a predominantly sexual mode of transmission HIV Ab/Ag 11/02/24 A64 - Unspecified sexually transmitted disease, K40.90 - Unilateral inguinal hernia, without obstruction or gangrene, not specified as recurrent, K86.2 - Cyst of pancreas, M54.50 - Low back pain, unspecified, N13.9 - Obstructive and reflux uropathy, unspecified, N48.6 - Induration penis plastica, Z00.00 - Encounter for general adult medical examination without abnormal findings, Z11.3 - Encounter for screening for infections with a predominantly sexual mode of transmission UA CC w/rflx Micro + Cult 11/02/24 M54.50 - Low back pain, unspecified AMB Urinalysis Automated 11/02/24 Z13.9 - Encounter for screening, unspecified CT NG by PCR 11/02/24 A64 - Unspecified sexually transmitted disease, K40.90 - Unilateral inguinal hernia, without obstruction or gangrene, not specified as recurrent, K86.2 - Cyst of pancreas, M54.50 - Low back pain, unspecified, N13.9 - Obstructive and reflux uropathy, unspecified, N48.6 - Induration penis plastica, Z00.00 - Encounter for general adult medical examination without abnormal findings, Z11.3 - Encounter for screening for infections with a predominantly sexual mode of transmission PSA,Total (Free>4and<10) 11/02/24 A64 - Unspecified sexually transmitted disease, K40.90 - Unilateral inguinal hernia, without obstruction or gangrene, not specified as recurrent, K86.2 - Cyst of pancreas, M54.50 - Low back pain, unspecified, N13.9 - Obstructive and reflux uropathy, unspecified, N48.6 - Induration penis plastica, Z00.00 - Encounter for general adult medical examination without abnormal findings, Z11.3 - Encounter for screening for infections with a predominantly sexual mode of transmission Erythrocyte Sedimentation Rate 11/02/24 A64 - Unspecified sexually transmitted disease, K40.90 - Unilateral inguinal hernia, without obstruction or gangrene, not specified as recurrent, K86.2 - Cyst of pancreas, M54.50 - Low back pain, unspecified, N13.9 - Obstructive and reflux uropathy, unspecified, N48.6 - Induration penis plastica, Z00.00 - Encounter for general adult medical examination without abnormal findings, Z11.3 - Encounter for screening for infections with a predominantly sexual mode of transmission
== END 2024-11-02 14:45 | disposition home or self-care (01) ==
PROVIDERS: PCP Physician Assistant
DX: Z13.9 Encounter for screening, unspecified (principal)

== ENCOUNTER → 2024-11-02 13:47 | Outpatient (BNVA) | payer OTHER, SELFPAY | PROVIDERS: PCP Physician Assistant | DX: M54.50 Low back pain, unspecified (principal); K86.2 Cyst of pancreas; K40.90 Unilateral inguinal hernia, without obstruction or gangrene, not specified as recurrent; K21.9 Gastro-esophageal reflux disease without esophagitis; R39.15 Urgency of urination | CPT/HCPCS: 81003; 96127; 99212 ==

== ENCOUNTER 2024-11-03 09:19 | Outpatient (REF) | payer OTHER, SELFPAY ==
[2024-11-03 09:43] LABS: MANUAL DIFF FLAG NO
[2024-11-03 10:40] LABS: Appearance Urine Clear; Color Urine Yellow; Glucose Urine UA Negative (Negative); Leukocyte Esterase Urine Negative (Negative); Nitrite Urine Negative (Negative); PH 7.5 (5.0-9.0); Urine Blood Negative (Negative); Urine Ketones Trace mg/dL (Negative); Urine Protein Negative (Neg-Trace)
[2024-11-03 10:44] LABS: Basophils Percent Auto 0.3 % (0-2); Eosinophils Absolute Auto 0.1 X10*3/uL (0.0-0.4); Eosinophils Percent Auto 2.3 % (0-4); Hematocrit 43.9 % (42.0-52.0); Hemoglobin 14.2 g/dl (14.0-18.0); Imm Gran Abs Auto 0.03 X10*3/uL (0.00-0.03); Imm Gran Pct Auto 0.5 % (0.0-0.4); Lymphocytes Absolute Auto 1.2 X10*3/uL (1.2-4.9); Lymphocytes Percent Auto 19.6 % (20-40); Mean Corpuscular HGB Conc 32.3 g/dl (31.0-36.0); Mean Corpuscular Hemoglobin 30.9 pg (27.0-33.0); Mean Corpuscular Volume 95.6 fL (80.0-98.0); Mean Platelet Volume 10.4 fL (9.4-12.4); Monocytes Absolute Auto 0.7 X10*3/uL (0.1-1.2); Monocytes Percent Auto 11.7 % (2-11); Neutrophils Percent Auto 65.6 % (45-73); Platelet Count 233 X10*3/uL (160-400); Red Blood Count 4.59 X10*6/uL (4.60-5.80); Red Cell Distribution Width 11.6 % (11.0-16.0); White Blood Count 6.1 X10*3/uL (4.8-10.8)
[2024-11-03 11:37] LABS: Erythrocyte Sedimentation Rate 2 MM/HR (0-15)
[2024-11-03 12:11] LABS: PSA,Total (Free>4and<10) 1.11 ng/mL (0.00-4.00)
[2024-11-03 12:24] LABS: Alanine Aminotransferase 20 U/L (0-40); Albumin Level 4.1 g/dL (3.5-5.0); Anion Gap 10 (12-20); Aspartate Amino Transferase 23 U/L (5-37); Bilirubin Total 0.9 mg/dL (0.0-1.0); Blood Urea Nitrogen 9 mg/dL (9-16); Calcium 9.1 mg/dL (8.4-10.2); Carbon Dioxide 28 mmol/L (22-29); Chloride 104 mmol/L (96-108); Estimated Glomerular Filt Rate > 60; Glucose Fasting 93 mg/dL (60-99); Potassium 3.7 mmol/L (3.3-5.1); Sodium 138 mmol/L (135-145); Total Protein 7.7 g/dL (6.5-8.0)
[2024-11-03 14:19] LABS: Alkaline Phosphatase 77 U/L (39-117)
[2024-11-04 07:52] LABS: Syphilis Screen Reactive (Nonreactive)
[2024-11-04 07:56] LABS: HIV AB/AG Nonreactive (Nonreactive); HIV Num 1 0.06 S/CO (0.00-0.99)
[2024-11-06 15:04] LABS: CRP High Sensitivity 1.1 mg/L
[2024-11-09 14:33] LABS: RPR Quantitative Non-Reactive (Nonreactive); T.Pallidum Particle Agg Test Reactive (Nonreactive)
== END 2024-11-03 09:20 | disposition home or self-care (01) ==
LOC: HO.LAB 09:19
PROVIDERS: PCP Physician Assistant
DX: Z00.00 Encounter for general adult medical examination without abnormal findings (principal); A64 Unspecified sexually transmitted disease; Z11.3 Encounter for screening for infections with a predominantly sexual mode of transmission; M54.50 Low back pain, unspecified; K40.90 Unilateral inguinal hernia, without obstruction or gangrene, not specified as recurrent; N48.6 Induration penis plastica; K86.2 Cyst of pancreas; N13.9 Obstructive and reflux uropathy, unspecified
CPT/HCPCS: 36415; 80053; 81003; 84153; 85025; 85652; 86141; 86592; 86780; 87389

== ENCOUNTER → 2024-11-14 08:36 | Outpatient (BNV) | payer OTHER, SELFPAY | PROVIDERS: PCP Physician Assistant; Visit Provider Radiology Diagnostic Radiology | DX: K86.2 Cyst of pancreas (principal); D18.09 Hemangioma of other sites | CPT/HCPCS: 74183 ==

== ENCOUNTER → 2024-11-15 16:09 | Outpatient (BNVA) | payer OTHER, SELFPAY | PROVIDERS: PCP Physician Assistant; Visit Provider Physician Assistant | DX: K86.2 Cyst of pancreas (principal); M25.512 Pain in left shoulder; G89.29 Other chronic pain; F33.1 Major depressive disorder, recurrent, moderate | CPT/HCPCS: 99212 ==

== ENCOUNTER → 2024-11-20 08:34 | Outpatient (BNV) | payer OTHER, SELFPAY | PROVIDERS: PCP Physician Assistant; Visit Provider Radiology Diagnostic Radiology | DX: M25.512 Pain in left shoulder (principal) | CPT/HCPCS: 73030 ==

== ENCOUNTER 2025-02-02 10:36 | Outpatient (REF) | payer OTHER, SELFPAY ==
[2025-02-02 12:22] LABS: HBS Num1 > 1000.00 mIU/mL (0-7.99); HBc Num1 0.08 S/CO (0.00-0.79); HBsAGNum1 0.63 S/CO (0.00-0.99); HIV AB/AG Nonreactive (Nonreactive); HIV Num 1 0.07 S/CO (0.00-0.99); Hepatitis B Core Antibody Nonreactive (Nonreactive); Hepatitis B Surface Antigen Negative (Negative); ~HepC Num1 0.18 S/CO (0.00-0.79); ~Hepatitis B Surface Antibody REACTIVE (Nonreactive); ~Hepatitis C Antibody Nonreactive (Nonreactive)
[2025-02-02 13:06] LABS: CT PCR NOT DETECTED (Not Detect.); NG PCR NOT DETECTED (Not Detect.)
[2025-02-04 17:14] LABS: RPR Rapid Plasma Reagin NON-REACTIVE (NON-REACTIVE)
[2025-02-06 20:08] LABS: Herpes Simplex Type 2 IgG 8.96 index
== END 2025-02-02 10:37 | disposition home or self-care (01) ==
LOC: HO.LAB 10:36
PROVIDERS: PCP Physician Assistant; Visit Provider Physician Assistant
DX: Z11.3 Encounter for screening for infections with a predominantly sexual mode of transmission (principal); A64 Unspecified sexually transmitted disease; Z20.2 Contact with and (suspected) exposure to infections with a predominantly sexual mode of transmission
CPT/HCPCS: 86592; 86695; 86696; 86704; 86706; 86803; 87340; 87389; 87491; 87591

== ENCOUNTER 2025-02-05 10:00 | Outpatient (RCR) | payer OTHER, SELFPAY | END 2025-09-26 08:41 | disposition home or self-care (01) | LOC: HO.PT 10:00 | PROVIDERS: PCP Physician Assistant; Visit Provider Physician Assistant | DX: M25.512 Pain in left shoulder (principal) | CPT/HCPCS: 82705; 83986; 87338; 89055; 97110; 97161 ==

== ENCOUNTER 2025-02-05 11:10 | Outpatient (REF) | payer OTHER, SELFPAY ==
[2025-02-05 14:02] LABS: Leukocytes Stool Qualitative NEGATIVE (NEGATIVE)
[2025-02-08 22:14] LABS: Fecal Fat Qualitative Normal (Normal)
== END 2025-02-05 11:11 ==
LOC: HO.LNP 11:10
PROVIDERS: Visit Provider Physician Assistant
DX: K86.2 Cyst of pancreas (principal)
CPT/HCPCS: 82705; 83986; 87338; 89055

== ENCOUNTER 2025-05-03 14:52 | Outpatient (AMB) | payer OTHER, SELFPAY ==
--- NOTE | 2025-05-03 14:59 | MHC.PC.OV ---
Vital Signs 05/03/25 15:00 Height 5 ft 10 in Weight 180 lb 4 oz BMI 25.9 BP 98/64 Blood Pressure Location Lt brachial Position Sitting Pulse 77 Pulse Source Pulse Oximeter Pulse Oximetry (%) 98 Oxygen Delivery Method Room Air Intake Visit Reasons: herpes simplex discussion Security Threat Analyst Required: No Allergies Penicillins (PENICILLINS) Allergy (Severe, Verified 05/03/25 15:12) DIFFICULTY BREATHING penicillin V Allergy (Unknown, Verified 05/03/25 15:12) throat swlelling, anaphylaxis From Augmentin Allergy (Unknown, Uncoded 05/03/25 15:12) UNKNOWN Medication List - Last Reconciled 05/03/25 by Chele Aquino PA-C cyclobenzaprine 10 mg PO BEDTIME 30 days mirtazapine 30 mg PO DAILY 90 days omeprazole 20 mg PO DAILY sertraline 50 mg PO DAILY 30 days Tobacco use date assessed: 05/03/25 Dental Screening Dental Screen Date: 05/03/25 Did you have a dental visit in the last 12 months?: Yes Did you have a dental problem in the last 6 months where you did not have access to dental care?: No Was dental information given to patient?: Patient has dentist HPI herpes simplex discussion HPI Details The patient is a 35-year-old male presenting with concerns about herpes and syphilis. The patient reports a history of syphilis, which was treated with antibiotics in the past. He recalls receiving treatment early in the infection, which did not require an injection of penicillin. Recently, the patient noticed a rash in the genital area, described as small vesicular lesions that are fluid-filled. The rash is resolving but was concerning as it was a new occurrence for him. The patient has been screened for sexually transmitted diseases, including herpes simplex virus (HSV) types 1 and 2, and has antibodies indicating past exposure. He reports that the vesicular lesions appear intermittently, approximately every eight months, and are not associated with severe symptoms. The patient has a history of alcohol use but reports abstaining from alcohol for the past two years, which has improved his overall well-being. He engages in regular physical activity, such as walking at [employer]. [facility] Medical History (Updated 05/03/25 @ 15:20 by Chele Aquino PA-C) TBI (traumatic brain injury) Screening for diabetes mellitus (DM) Knee joint cyst, right Rib pain on right side Lumbar radiculitis Allergic rhinitis Exposure to COVID-19 virus Screening for hypothyroidism Screening for STD (sexually transmitted disease) Screening for diabetes mellitus (DM) TBI (traumatic brain injury) Neurological symptoms Family history of diabetes mellitus Blurred vision Surgical History History of right knee surgery History of right inguinal hernia repair (01/03/24) Rupture of right patellar tendon Family History Father Hx of diabetes mellitus History of high blood pressure Mother No problems noted. Mother No problems noted. Social History Housing: House Alcohol intake: former Patient Tobacco Use Status: Former Tobacco user e-Cigarette/Vaping Use: Former Use Second Hand Smoke Exposure: Yes Substance Use Type: Crack/Cocaine and Marijuana service: No Current occupational status: unemployed Current occupation: [employer] Current occupational exposures/hazards: No Cognitive needs: No Hearing needs: No Vision needs: Yes Questionnaire PHQ-9 Over the last 2 weeks, how often have you been bothered by any of the following problems? 1. Little interest or pleasure in doing things: nearly every day 2. Feeling down, depressed, or hopeless: more than half the days 3. Trouble falling or staying asleep, or sleeping too much: more than half the days 4. Feeling tired or having little energy: more than half the days 5. Poor appetite or overeating: more than half the days 6. Feeling bad about yourself - or that you are a failure or have let yourself or your family down: more than half the days 7. Trouble concentrating on things, such as reading the newspaper or watching television: more than half the days 8. Moving or speaking so slowly that other people could have noticed. Or the opposite - being so fidgety or restless that you have been moving around a lot more than usual: more than half the days 9. Thoughts that you would be better off or of hurting yourself in some way: several days Total score: 18 Depression Screening Interpretation: Positive Depression Screening Follow-up: Existing condition Depression Screening Done: Yes 34393 - PHQ-9 Billing: Yes Source: Developed by Drs. Nicholas Srevin, Anny Ramon, Gerhard Bennett and colleagues, with an educational mercedes from [employer]. Thrive Questionnaire Date Thrive assessed: 05/03/25 I am a: Patient What is your living situation today?: I have a steady place to live Within the past 12 months, did the food you bought not last and you didn't have the money to get more?: Never true Within the past 12 months, did you worry whether your food would run out before you got money to buy more?: I choose not to answer this question Do you have trouble paying for medicines?: I choose not to answer this question Do you have trouble getting transportation to medical appointments?: I choose not to answer this question Do you have trouble paying your heating and electricity bill?: I choose not to answer this question Do you have trouble taking care of your child, family member or friend?: I choose not to answer this question Do you have trouble with day-to-day activities such as bathing, preparing meals, shopping, managing finances, etc.?: I choose not to answer this question Are you currently unemployed and looking for a job?: I choose not to answer this question Are you interested in more education?: I choose not to answer this question Please select the resources that you would like help with: None Currently or been in a relationship where the following occur: I choose not to answer THRIVE Score: 0 AUDIT C Alcohol Use Questionnaire (AUDIT-C) 1. How often do you have a drink containing alcohol?: Never 3. How often do you have six or more drinks on one occasion?: Never Total Score: 0 ETTA-7 AMB Questionnaire ETTA-7 Date ETTA - 7 assessed: 05/03/25 Feeling nervous, anxious, or on edge: 0 = Not at all Not being able to stop or control worryin = Not at all Worrying too much about different things: 0 = Not at all Trouble relaxin = Not at all Being so restless that it is hard to sit still: 0 = Not at all Becoming easily annoyed or irritable: 0 = Not at all Feeling afraid as if something awful might happen: 0 = Not at all Total ETTA-7 score (0-4 normal; 5-9 mild; 10-14 moderate; 15-21 severe): 0 Source: Developed by Drs. Nicholas Servin, Anny Ramon, Gerhard Bennett and colleagues, with an educational mercedes from [employer]. ETTA-7 Assessment Billing ETTA-7 Assessment Tool: ETTA-7 Assessment 99064 Review of Systems Const Denies headache(s) Eyes Denies loss of vision ENT Denies vertigo, Denies dizziness, Denies headache(s) and Denies sore throat Card Denies chest pain, Denies leg edema and Denies lightheadedness Resp Denies cough, Denies hemoptysis and Denies wheezing GI Denies abdominal pain, Denies melena, Denies constipation, Denies diarrhea and Denies vomiting Denies dysuria, Denies urinary frequency and Denies urinary urgency Musc Denies arthralgias, Denies joint swelling, Denies numbness and Denies tingling Neuro Denies Abnormal speech present, Denies behavioral changes, Denies vertigo, Denies dizziness, Denies headache(s), Denies loss of vision, Denies memory loss, Denies numbness and Denies tingling Psych Denies anxiety, Denies behavioral changes, Denies depression, Denies memory loss and Denies panic attacks Barrett/Lymph Denies easy bleeding and Denies easy bruising Aller/Immun Denies wheezing Physical exam (Primary Care) Vital Signs: Last Vital Signs Pulse 77 05/03/25 15:00 BP 98/64 05/03/25 15:00 Pulse Ox 98 05/03/25 15:00 Oxygen Delivery Method Room Air 05/03/25 15:00 BMI result Body Mass Index 25.9 Tobacco/Smoking Status: Tobacco use Status Tobacco use date assessed 05/03/25 05/03/25 15:05 Patient Tobacco Use Status Former Tobacco user 05/03/25 15:05 Tobacco use type 08/22/24 09:48 e-Cigarette/Vaping Use Former Use 05/03/25 15:05 PHQ-9: PHQ-9 Score PHQ-9: Total score 18 05/03/25 15:20 Depression Screening Interpretation: Positive Depression Screening Follow-up: Existing condition Thrive Assessment: Date of Thrive Assessment Date Thrive assessed 05/03/25 05/03/25 15:05 Currently or been in a relationship where the following occur: I choose not to answer Const General: healthy appearing, no acute distress, alert and awake Nutritional Appearance: well nourished Orientation/consciousness: oriented to person, oriented to place and oriented to time HENMT Ears: TM's normal bilaterally General nose exam: Normal nasal mucous membranes and turbinates present Eyes Conjunctivae: conjunctivae normal Sclerae: sclerae normal Pupils: Equal, round and reactive pupils present Neck Neck: Yes no lymphadenopathy and Yes no JVD Thyroid: Thyroid normal Carotids: no bruits Resp Effort & Inspection: normal respiratory effort and not tachypneic Auscultation: no crackles, no rales, no rhonchi and no wheezes Cardio Rate: regular rate Rhythm: regular rhythm Heart sounds: no murmurs and normal S1 and S2 GI Palpation (GI): Soft to palpation, nontender, no hepatomegaly and no splenomegaly Auscultation: normal bowel sounds Skin General skin exam: no rashes or lesions noted and dry skin Neuro General: oriented to person, oriented to place and oriented to time Cranial nerves: Yes Equal, round and reactive pupils present Speech: No Abnormal speech present Gait exam (Neuro): Normal gait present Motor exam (neuro): no tremor noted Extrem Right upper extremity: full ROM Left upper extremity: full ROM Right lower extremity: full ROM; no edema Left lower extremity: full ROM; no edema Psych Mental Status: mental status grossly normal Speech and movement: Normal speech and movement present Affect: normal affect Attitude: cooperative Thought process: Normal thought process present Coding Level of Care Code Est Pt Level 3 (80450) Diagnoses Herpes simplex B00.9 Additional Codes PHQ-9 - 14895 - PHQ-9 Billing: Yes ([id number]) ETTA-7 Assessment Billing - ETTA-7 Assessment Tool: ETTA-7 Assessment 29491 ([id number]) Assessment & Plan Assessment & Plan (1) Herpes simplex: Code(s): B00.9 - Herpesviral infection, unspecified Category: Medical Plan: The patient has been advised to take antiviral medication, such as Valacyclovir, during outbreaks to reduce the duration and severity of symptoms. He was informed about the importance of avoiding sexual contact during outbreaks to prevent transmission. Orders: Orders Comprehensive [place]. Panel Fast 05/03/25 I10 - Essential (primary) hypertension HIV Ab/Ag 05/03/25 Z11.3 - Encounter for screening for infections with a predominantly sexual mode of transmission Complete Blood Count no Diff 05/03/25 I10 - Essential (primary) hypertension CT NG by PCR Urine 05/03/25 Z11.3 - Encounter for screening for infections with a predominantly sexual mode of transmission RPR Monitor reflex titer 05/03/25 Z11.3 - Encounter for screening for infections with a predominantly sexual mode of transmission Medications: New valacyclovir (Valtrex) 1,000 mg PO BID 14 tabs 0RF 7 days B00.9 - Herpesviral infection, unspecified
[2025-05-03 15:00] VITALS: BP 98/64; PULSE 77; O2SAT 98; BMI 25.9
== END 2025-05-03 15:30 | disposition home or self-care (01) ==
LOC: HO.HMCH 14:53
PROVIDERS: PCP Physician Assistant; Visit Provider Physician Assistant
DX: B00.9 Herpesviral infection, unspecified (principal)

== ENCOUNTER → 2025-05-03 14:52 | Outpatient (BNVA) | payer OTHER, SELFPAY | PROVIDERS: PCP Physician Assistant; Visit Provider Physician Assistant | DX: B00.9 Herpesviral infection, unspecified (principal); Z13.31 Encounter for screening for depression; Z13.39 Encounter for screening examination for other mental health and behavioral disorders | CPT/HCPCS: 96127; 99212 ==

== ENCOUNTER 2025-05-21 12:35 | Outpatient (REF) | payer OTHER, SELFPAY ==
[2025-05-21 13:51] LABS: Hematocrit 41.1 % (42.0-52.0); Hemoglobin 13.3 g/dl (14.0-18.0); Mean Corpuscular HGB Conc 32.4 g/dl (31.0-36.0); Mean Corpuscular Hemoglobin 30.9 pg (27.0-33.0); Mean Corpuscular Volume 95.6 fL (80.0-98.0); NRBC Abs Auto 0.020 X10*3/uL (0.0-0.012); NRBC Pct Auto 0.4 /100WBC (0.0-0.2); Platelet Count 217 X10*3/uL (160-400); Red Blood Count 4.30 X10*6/uL (4.60-5.80); White Blood Count 5.0 X10*3/uL (4.8-10.8)
[2025-05-21 14:31] LABS: Alanine Aminotransferase 20 U/L (0-40); Albumin Level 4.1 g/dL (3.5-5.0); Alkaline Phosphatase 60 U/L (39-117); Anion Gap 9 (12-20); Aspartate Amino Transferase 24 U/L (5-37); Blood Urea Nitrogen 11 mg/dL (9-16); Calcium 8.4 mg/dL (8.4-10.2); Carbon Dioxide 25 mmol/L (22-29); Chloride 107 mmol/L (96-108); Estimated Glomerular Filt Rate > 60; Potassium 3.5 mmol/L (3.3-5.1); Sodium 137 mmol/L (135-145); Total Protein 6.7 g/dL (6.5-8.0)
[2025-05-21 15:23] LABS: CT PCR Urine NOT DETECTED (Not Detect.); NG PCR Urine NOT DETECTED (Not Detect.)
[2025-05-22 08:56] LABS: HIV Num 1 0.06 S/CO (0.00-0.99)
== END 2025-05-21 12:36 | disposition home or self-care (01) ==
LOC: HO.LAB 12:35
PROVIDERS: PCP Physician Assistant; Visit Provider Physician Assistant
DX: Z11.3 Encounter for screening for infections with a predominantly sexual mode of transmission (principal); Z11.8 Encounter for screening for other infectious and parasitic diseases; Z11.4 Encounter for screening for human immunodeficiency virus [HIV]; I10 Essential (primary) hypertension
CPT/HCPCS: 80053; 85027; 86592; 87389; 87491; 87591

== ENCOUNTER 2025-08-22 14:23 | Outpatient (REF) | payer OTHER, SELFPAY ==
[2025-08-22 16:38] LABS: Appearance Urine Clear; Glucose Urine UA Negative (Negative); PH 8.0 (5.0-9.0); Specific Gravity - Urine 1.015 (1.005-1.025)
[2025-08-22 17:00] LABS: Alanine Aminotransferase 22 U/L (0-40); Albumin Level 4.5 g/dL (3.5-5.0); Alkaline Phosphatase 77 U/L (39-117); Anion Gap 9 (12-20); Aspartate Amino Transferase 26 U/L (5-37); Blood Urea Nitrogen 11 mg/dL (9-16); Calcium 8.8 mg/dL (8.4-10.2); Carbon Dioxide 31 mmol/L (22-29); Chloride 104 mmol/L (96-108); Estimated Glomerular Filt Rate > 60; Lipase 17 U/L (8-78); Potassium 4.1 mmol/L (3.3-5.1); Sodium 140 mmol/L (135-145); Total Protein 7.6 g/dL (6.5-8.0)
[2025-08-23 03:25] LABS: CT PCR Urine NOT DETECTED (Not Detect.); NG PCR Urine NOT DETECTED (Not Detect.)
[2025-08-23 03:42] LABS: Syphilis Screen Reactive (Nonreactive)
[2025-08-23 03:45] LABS: HIV Num 1 0.07 S/CO (0.00-0.99)
[2025-09-05 14:01] LABS: T.Pallidum Particle Agg Test Reactive (Nonreactive)
== END 2025-08-22 14:24 | disposition home or self-care (01) ==
LOC: HO.LAB 14:23
PROVIDERS: PCP Physician Assistant; Visit Provider Physician Assistant
DX: Z11.3 Encounter for screening for infections with a predominantly sexual mode of transmission (principal); R35.0 Frequency of micturition; D49.0 Neoplasm of unspecified behavior of digestive system; R30.0 Dysuria; R19.5 Other fecal abnormalities; F33.1 Major depressive disorder, recurrent, moderate; Z79.899 Other long term (current) drug therapy
CPT/HCPCS: 36415; 80053; 81003; 83036; 83690; 86592; 86780; 87389; 87491; 87591; 88112; 96127; 99212

== ENCOUNTER 2025-08-22 14:23 | Outpatient (AMB) | payer OTHER, SELFPAY ==
--- NOTE | 2025-08-22 14:28 | MHC.PC.OV ---
Vital Signs 08/22/25 14:29 Height 5 ft 10 in Weight 178 lb 8 oz BMI 25.6 BP 110/80 Blood Pressure Location Lt brachial Position Sitting Pulse 57 Pulse Source Pulse Oximeter Temp 97.5 F Temp Source Temporal Artery Scan Pulse Oximetry (%) 97 Oxygen Delivery Method Room Air Intake Visit Reasons: Rash Allergies Penicillins (PENICILLINS) Allergy (Severe, Verified 08/22/25 15:03) DIFFICULTY BREATHING penicillin V Allergy (Unknown, Verified 08/22/25 15:03) throat swlelling, anaphylaxis From Augmentin Allergy (Unknown, Uncoded 08/22/25 15:03) UNKNOWN Medication List - Last Reconciled 08/22/25 by Chele Aquino PA-C omeprazole 20 mg PO DAILY Tobacco use date assessed: 08/22/25 Dental Screening Dental Screen Date: 08/22/25 Did you have a dental visit in the last 12 months?: Yes Did you have a dental problem in the last 6 months where you did not have access to dental care?: No Was dental information given to patient?: Patient has dentist HPI Rash HPI Details The patient is a 35-year-old male presenting for follow-up visit and to follow up on multiple chronic and acute issues. He has a history of a 5 mm probable intraductal papillary mucinous neoplasm (IPMN) in the pancreatic head, which was found on an MRI and recommended for follow-up in 12 months, a timeframe which is now approaching in November. He reports intermittent, hard, stabbing pain in the middle of his stomach that comes and goes. The patient reports new-onset gastrointestinal symptoms, including dark black stools and recent constipation, which are concerning for a possible upper GI bleed, such as from a bleeding ulcer. A prior endoscopy was reportedly clean. He also notes anal pain and an itchy feeling, suggestive of hemorrhoids. He continues to take omeprazole as needed, which helps his symptoms. PARESTHESIAS: He expresses concern about symptoms potentially related to diabetes, as his father is a diabetic. These symptoms include frequent urination approximately every 30 minutes, sometimes blurry vision, and numbness with a pins and needles sensation in his hands and feet. His last fasting blood sugar in May was normal at 93. He also describes an uncomfortable feeling when urinating, without stinging or bleeding. MENTAL HEALTH: In terms of psychiatric history, the patient has a diagnosis of bipolar disorder and was on medication for about 20 years until his psychiatrist retired. Since stopping medication, he has experienced significant sleep disruption and other issues. He reports using cannabis to help with sleep and has recently started seeing a counselor. 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 He also has a history of treated syphilis. Socially, he engages in boxing and jogging but recently drank alcohol for two days, though he is not drinking currently. [facility] Medical History TBI (traumatic brain injury) Screening for diabetes mellitus (DM) Knee joint cyst, right Rib pain on right side Lumbar radiculitis Allergic rhinitis Exposure to COVID-19 virus Screening for hypothyroidism Screening for STD (sexually transmitted disease) Screening for diabetes mellitus (DM) TBI (traumatic brain injury) Neurological symptoms Family history of diabetes mellitus Blurred vision Surgical History History of right knee surgery History of right inguinal hernia repair (01/03/24) Rupture of right patellar tendon Family History Father Hx of diabetes mellitus History of high blood pressure Mother No problems noted. Mother No problems noted. Social History Housing: House Alcohol intake: former Patient Tobacco Use Status: Former Tobacco user e-Cigarette/Vaping Use: Currently Using Second Hand Smoke Exposure: Yes Substance Use Type: Crack/Cocaine and Marijuana service: No Current occupational status: unemployed Current occupation: [employer] Current occupational exposures/hazards: No Cognitive needs: No Hearing needs: No Vision needs: Yes Questionnaire PHQ-9 Over the last 2 weeks, how often have you been bothered by any of the following problems? 1. Little interest or pleasure in doing things: nearly every day 2. Feeling down, depressed, or hopeless: more than half the days 3. Trouble falling or staying asleep, or sleeping too much: more than half the days 4. Feeling tired or having little energy: more than half the days 5. Poor appetite or overeating: more than half the days 6. Feeling bad about yourself - or that you are a failure or have let yourself or your family down: more than half the days 7. Trouble concentrating on things, such as reading the newspaper or watching television: more than half the days 8. Moving or speaking so slowly that other people could have noticed. Or the opposite - being so fidgety or restless that you have been moving around a lot more than usual: more than half the days 9. Thoughts that you would be better off or of hurting yourself in some way: several days Total score: 18 Depression Screening Interpretation: Positive Depression Screening Follow-up: Existing condition and In treatment Depression Screening Done: Yes 39592 - PHQ-9 Billing: Yes Source: Developed by Drs. Nicholas Servin, Anny Ramon, Gerhard Bennett and colleagues, with an educational mercedes from [employer]. Thrive Questionnaire Date Thrive assessed: 05/03/25 I am a: Patient What is your living situation today?: I have a steady place to live Within the past 12 months, did the food you bought not last and you didn't have the money to get more?: Never true Within the past 12 months, did you worry whether your food would run out before you got money to buy more?: I choose not to answer this question Do you have trouble paying for medicines?: I choose not to answer this question Do you have trouble getting transportation to medical appointments?: I choose not to answer this question Do you have trouble paying your heating and electricity bill?: I choose not to answer this question Do you have trouble taking care of your child, family member or friend?: I choose not to answer this question Do you have trouble with day-to-day activities such as bathing, preparing meals, shopping, managing finances, etc.?: I choose not to answer this question Are you currently unemployed and looking for a job?: I choose not to answer this question Are you interested in more education?: I choose not to answer this question Please select the resources that you would like help with: None Currently or been in a relationship where the following occur: I choose not to answer THRIVE Score: 0 AUDIT C Alcohol Use Questionnaire (AUDIT-C) 1. How often do you have a drink containing alcohol?: Never 3. How often do you have six or more drinks on one occasion?: Never Total Score: 0 ETTA-7 AMB Questionnaire ETTA-7 Date ETTA - 7 assessed: 05/03/25 Feeling nervous, anxious, or on edge: 0 = Not at all Not being able to stop or control worryin = Not at all Worrying too much about different things: 0 = Not at all Trouble relaxin = Not at all Being so restless that it is hard to sit still: 0 = Not at all Becoming easily annoyed or irritable: 0 = Not at all Feeling afraid as if something awful might happen: 0 = Not at all Total ETTA-7 score (0-4 normal; 5-9 mild; 10-14 moderate; 15-21 severe): 0 Source: Developed by Drs. Nicholas Servin, Anny Ramon, Gerhard Bennett and colleagues, with an educational mercedes from [employer]. ETTA-7 Assessment Billing ETTA-7 Assessment Tool: ETTA-7 Assessment 26055 Review of Systems Const Denies headache(s) Eyes Denies loss of vision ENT Denies vertigo, Denies dizziness, Denies headache(s) and Denies sore throat Card Denies chest pain, Denies leg edema and Denies lightheadedness Resp Denies cough, Denies hemoptysis and Denies wheezing GI Reports abdominal pain, Reports melena, Denies constipation, Denies diarrhea and Denies vomiting Denies dysuria, Denies urinary frequency and Denies urinary urgency Musc Denies arthralgias, Denies joint swelling, Denies numbness and Denies tingling Neuro Denies Abnormal speech present, Denies behavioral changes, Denies vertigo, Denies dizziness, Denies headache(s), Denies loss of vision, Denies memory loss, Denies numbness and Denies tingling Psych Denies anxiety, Denies behavioral changes, Denies depression, Denies memory loss and Denies panic attacks Barrett/Lymph Denies easy bleeding and Denies easy bruising Aller/Immun Denies wheezing Physical exam (Primary Care) Vital Signs: Last Vital Signs Temp 97.5 F 08/22/25 14:29 Pulse 57 08/22/25 14:29 BP 110/80 08/22/25 14:29 Pulse Ox 97 08/22/25 14:29 Oxygen Delivery Method Room Air 08/22/25 14:29 BMI result Body Mass Index 25.6 Tobacco/Smoking Status: Tobacco use Status Tobacco use date assessed 08/22/25 08/22/25 14:32 Patient Tobacco Use Status Former Tobacco user 08/22/25 14:32 Tobacco use type 08/02/25 15:22 e-Cigarette/Vaping Use Currently Using 08/22/25 14:32 PHQ-9: PHQ-9 Score PHQ-9: Total score 18 08/22/25 15:11 Depression Screening Interpretation: Positive Depression Screening Follow-up: Existing condition and In treatment Thrive Assessment: Date of Thrive Assessment Date Thrive assessed 05/03/25 08/22/25 14:32 Currently or been in a relationship where the following occur: I choose not to answer Const General: healthy appearing, no acute distress, alert and awake Nutritional Appearance: well nourished Orientation/consciousness: oriented to person, oriented to place and oriented to time HENMT Ears: TM's normal bilaterally General nose exam: Normal nasal mucous membranes and turbinates present Eyes Conjunctivae: conjunctivae normal Sclerae: sclerae normal Pupils: Equal, round and reactive pupils present Neck Neck: Yes no lymphadenopathy and Yes no JVD Thyroid: Thyroid normal Carotids: no bruits Resp Effort & Inspection: normal respiratory effort and not tachypneic Auscultation: no crackles, no rales, no rhonchi and no wheezes Cardio Rate: regular rate Rhythm: regular rhythm Heart sounds: no murmurs and normal S1 and S2 GI Palpation (GI): Soft to palpation, nontender, no hepatomegaly and no splenomegaly Auscultation: normal bowel sounds Skin General skin exam: no rashes or lesions noted and dry skin Neuro General: oriented to person, oriented to place and oriented to time Cranial nerves: Yes Equal, round and reactive pupils present Speech: No Abnormal speech present Gait exam (Neuro): Normal gait present Motor exam (neuro): no tremor noted Extrem Right upper extremity: full ROM Left upper extremity: full ROM Right lower extremity: full ROM; no edema Left lower extremity: full ROM; no edema Psych Mental Status: mental status grossly normal Speech and movement: Normal speech and movement present Affect: normal affect Attitude: cooperative Thought process: Normal thought process present Coding Level of Care Code Est Pt Level 4 (01043) Diagnoses IPMN (intraductal papillary mucinous neoplasm) D49.0 Urinary frequency R35.0 Dark stools R19.5 MDD (major depressive disorder), recurrent episode, moderate F33.1 Additional Codes ETTA-7 Assessment Billing - ETTA-7 Assessment Tool: ETTA-7 Assessment 43317 ([id number]) PHQ-9 - 21809 - PHQ-9 Billing: Yes ([id number]) Assessment & Plan Assessment & Plan (1) IPMN (intraductal papillary mucinous neoplasm): Code(s): D49.0 - Neoplasm of unspecified behavior of digestive system Category: Medical Plan: For surveillance of the probable pancreatic IPMN, a new MRI of the abdomen will be ordered. (2) Urinary frequency: Code(s): R35.0 - Frequency of micturition Category: Medical Plan: To evaluate the symptoms of urinary frequency, paresthesias, and blurry vision, which are concerning for diabetes, comprehensive, non-fasting blood work will be ordered. This will include a check of blood sugar, kidney function, liver function, and pancreatic enzymes. A urinalysis and urine cytology will also be ordered to investigate for urinary infection, hematuria, or other abnormalities causing his urinary symptoms. A full STI panel, including for HIV, gonorrhea, chlamydia, and syphilis, will be included. (3) Dark stools: Code(s): R19.5 - Other fecal abnormalities Category: Medical Plan: To investigate the melena and abdominal pain, the patient is advised to urgently contact his inspector mechanical for follow-up and possible endoscopy, as this could represent a bleeding ulcer (4) MDD (major depressive disorder), recurrent episode, moderate: Code(s): F33.1 - Major depressive disorder, recurrent, moderate Category: Medical Plan: To address his insomnia and bridge his psychiatric care, a 90-day prescription for Mirtazapine 15 mg will be sent. The patient is encouraged to establish care with a new psychiatrist for long-term management of his bipolar disorder. Orders: Orders Lipase Today D49.0 - Neoplasm of unspecified behavior of digestive system CT NG by PCR Urine Today Z11.3 - Encounter for screening for infections with a predominantly sexual mode of transmission Hemoglobin A1c Today R35.0 - Frequency of micturition UA CC w/rflx Micro + Cult Today R30.0 - Dysuria, R35.0 - Frequency of micturition Urine Cytology Today R35.0 - Frequency of micturition Comprehensive Met. Panel Today R35.0 - Frequency of micturition Syphilis Screen Today Z11.3 - Encounter for screening for infections with a predominantly sexual mode of transmission HIV Ab/Ag Today Z11.3 - Encounter for screening for infections with a predominantly sexual mode of transmission MR abdomen wo/w con 3 Months D49.0 - Neoplasm of unspecified behavior of digestive system Medications: New valacyclovir (Valtrex) 1,000 mg PO BID 14 tabs 0RF 7 days B00.9 - Herpesviral infection, unspecified mirtazapine 15 mg PO BEDTIME 90 tabs 3RF 90 days F51.02 - Adjustment insomnia
[2025-08-22 14:29] VITALS: BP 110/80; PULSE 57; TEMP 36.4; O2SAT 97; BMI 25.6
== END 2025-08-22 15:25 | disposition home or self-care (01) ==
LOC: HO.HMCH 14:24
PROVIDERS: PCP Physician Assistant; Visit Provider Physician Assistant
DX: D49.0 Neoplasm of unspecified behavior of digestive system (principal); R35.0 Frequency of micturition; R19.5 Other fecal abnormalities; F33.1 Major depressive disorder, recurrent, moderate

== ENCOUNTER 2025-09-10 10:36 | Outpatient (AMB) | payer OTHER, SELFPAY ==
--- NOTE | 2025-09-10 10:38 | A.OFFVIS_ITS ---
Vital Signs 3 09/10/25 10:49 Height 5 ft 10 in Weight 177 lb 6 oz BMI 25.4 BP 137/83 Blood Pressure Location Lt brachial Position Sitting Pulse 88 Intake Visit Reasons: Benign lipomatous neoplasm of skin and subcutaneo Intake Note: Patient is seen in office for evaluation of multiple lipomas. Pt c/o: has multiple lump in the lower back for the past 6 yrs, has increase in size and quantity, had 2 lumps is up to six now, admits to discomfort, denies discharge Front Desk Associate Required: No Business Liaison Officer: Business Liaison Officer Present Accompanied by: Self / Same As Patient Allergies Penicillins (PENICILLINS) Allergy (Severe, Verified 09/10/25 10:41) DIFFICULTY BREATHING penicillin V Allergy (Unknown, Verified 09/10/25 10:41) throat swlelling, anaphylaxis From Augmentin Allergy (Unknown, Uncoded 09/10/25 10:41) UNKNOWN Medication List - Last Reconciled 09/10/25 by Endy Ramos MD mirtazapine 15 mg PO BEDTIME 90 days omeprazole 20 mg PO DAILY valacyclovir (Valtrex) 1,000 mg PO BID 7 days HPI Comments Details: 35-year-old male patient presenting for evaluation of soft tissue mass located in the bilateral low back. He feels the lesion to have been present for several years but have increased in size in an alk causing discomfort especially when the lumps are palpated. He works for [employer] and frequently is required to perform heavy lifting. He denies any other associated symptoms other than pain. [facility] Medical History TBI (traumatic brain injury) Screening for diabetes mellitus (DM) Knee joint cyst, right Rib pain on right side Lumbar radiculitis Allergic rhinitis Exposure to COVID-19 virus Screening for hypothyroidism Screening for STD (sexually transmitted disease) Screening for diabetes mellitus (DM) TBI (traumatic brain injury) Neurological symptoms Family history of diabetes mellitus Blurred vision Surgical History History of right knee surgery History of right inguinal hernia repair (01/03/24) Rupture of right patellar tendon Family History Father Hx of diabetes mellitus History of high blood pressure Mother No problems noted. Mother No problems noted. Social History Housing: House Alcohol intake: former Patient Tobacco Use Status: Former Tobacco user e-Cigarette/Vaping Use: Currently Using Second Hand Smoke Exposure: Yes Substance Use Type: Crack/Cocaine and Marijuana service: No Current occupational status: unemployed Current occupation: [employer] Current occupational exposures/hazards: No Cognitive needs: No Hearing needs: No Vision needs: Yes Review of Systems Const All systems reviewed & are unremarkable except as noted in HPI and below Physical Exam Const General: no acute distress Nutritional Appearance: well nourished Orientation/consciousness: patient oriented x3 Resp Effort & Inspection: normal respiratory effort, no audible wheezes, no cough and no respiratory distress GI Inspection: Yes normal to inspection Back/Spine/Pelvis Other: Bilateral low back palpable masses in either side of the low spine, mirror image consistent with lipoma each measuring 4 cm diameter Back/spine/pelvis image: 2 1. 4 cm soft tissue mass consistent with lipoma 2. 4 cm soft tissue mass consistent with lipoma Skin Other: Warm, dry, no rash Neuro General: patient oriented x3 Extrem General: Yes normal to inspection and Yes no clubbing, cyanosis or edema Assessment & Plan Assessment & Plan (1) Lipoma of back: Code(s): D17.1 - Benign lipomatous neoplasm of skin and subcutaneous tissue of trunk Category: Medical Plan 35-year-old male patient presenting with a soft tissue mass located in the lower back x2 on examination he has 2 mirror-image lesions consistent with lipoma each measuring approximately 4 cm in diameter. He has requested excision of these lesions and after discussion of the procedure, risks, and alternatives, he consents to the surgery. This will be scheduled as a short-stay surgery. Coding Level of Care Code Est Pt Level 4 (12072) Diagnoses Lipoma of back D17.1
[2025-09-10 10:49] VITALS: BP 137/83; PULSE 88; BMI 25.4
== END 2025-09-10 10:51 | disposition home or self-care (01) ==
LOC: HO.HGS 10:37
PROVIDERS: PCP Physician Assistant; Visit Provider Surgery
DX: D17.1 Benign lipomatous neoplasm of skin and subcutaneous tissue of trunk (principal)
CPT/HCPCS: 99214

== ENCOUNTER → 2025-09-10 10:36 | Outpatient (BNVA) | payer OTHER, SELFPAY | PROVIDERS: PCP Physician Assistant; Visit Provider Surgery | DX: D17.1 Benign lipomatous neoplasm of skin and subcutaneous tissue of trunk (principal) | CPT/HCPCS: 99212 ==